=== PATIENT | female | born 1935 | race Caucasian/White ===

== ENCOUNTER 2018-01-10 11:02 | Inpatient (IN) | payer MEDICARE, BC ==
--- NOTE | 2018-01-10 13:16 | CR ---
Chest: Portable view of the chest was obtained. Comparison: Prior chest x-ray of 12/01/12. Elevated right hemidiaphragm is seen which is a stable finding. Heart size appears at the upper limits of normal. Tortuous thoracic aorta is seen. Atherosclerotic calcification is noted within the aortic knob. Lungs show minimal atelectasis within the right base. Lungs otherwise are clear. Mild scoliosis is noted within the spine. Impression: 1. Incidental findings. Nothing acute is seen. Diagnostic code #2
--- NOTE | 2018-01-10 13:21 | EDM.PDOC ---
ED HPI GENERAL MEDICAL PROBLEM - General Chief Complaint: Gastrointestinal Problem Stated Complaint: [facility] Time Seen by Provider: 01/10/18 11:30 Source of Information: Reports: Patient, Family (2 daughters) History Limitations: Reports: No Limitations - History of Present Illness INITIAL COMMENTS - FREE TEXT/NARRATIVE: The patient's daughters states that the patient has [place] not felt well for the past 2 weeks. They are nonspecific, but indicated that she has had a decreased oral intake of both solids and fluids. This past 01/07/2018, the patient was found to be shivering, and she had nausea, although no emesis. He states that she has been getting weaker. Ordinarily she is able to walk with a walker, however, today she was too weak to get up, and did not want to take her oral medications. She has not had a fever or diarrhea. No recent cough. No dyspnea. No palpitations. The patient happened to mention that her chest felt heavy today. No prior similar symptoms. The patient's PCP is Monalisa Duffy, who has not been notified of the patient's symptoms. - Related Data Allergies Allergy/AdvReac Type Severity Reaction Status Date / Time No Known Allergies Allergy Verified 01/10/18 11:05 Home Meds: Home Meds Acetaminophen [Tylenol] 325 mg PO QID 07/14/14 [History] Albuterol [Proventil HFA] 2 puff INH Q4H PRN 07/14/14 [History] Aspirin [Halfprin] 81 mg PO DAILY 07/14/14 [History] Hydrocodone/Acetaminophen [Hydrocodone-Acetaminophen 5-325] 1 each PO QID [History] Lisinopril 10 mg PO BID 07/14/14 [History] Multivitamin [Multi-Vitamin Daily] 1 each PO DAILY 07/14/14 [History] Sertraline [Zoloft] 75 mg PO DAILY 07/14/14 [History] Triamterene/Hydrochlorothiazid [Triamterene-HCTZ 37.5-25 MG] 0.5 tab PO DAILY [History] Docusate Sodium [Stool Softener] 50 mg PO BEDTIME 01/10/18 [History] L.acidoph,Paracasei, B.lactis [Probiotic] 1 tab PO DAILY 01/10/18 [History] Ondansetron 4 mg PO Q6H PRN 01/10/18 [History] Past Medical History Cardiovascular History: Reports: CAD, Hypertension Genitourinary History: Reports: Urinary Incontinence Musculoskeletal History: Reports: Osteoarthritis Psychiatric History: Reports: Anxiety, Depression Endocrine/Metabolic History: Reports: Diabetes, Type II - Past Surgical History HEENT Surgical History: Reports: Cataract Surgery Cardiovascular Surgical History: Reports: Coronary Artery Stent (x 1) Female Surgical History: Reports: Other (See Below) (Uterus suspension) Social & Family History - Family History Family Medical History: Unobtainable HEENT: Reports: Cataract Cardiac: Reports: [place] Other Cardiac Family History: father Respiratory: Reports: None GI: Reports: None : Reports: None OBGYN: Reports: None Musculoskeletal: Reports: Arthritis Neurological: Reports: None Psychiatric: Reports: None Endocrine/Metabolic: Reports: Diabetes, type II Other Endocrine/Metabolic Family History: daughter Hematologic: Reports: None Immunologic: Reports: None Dermatologic: Reports: None Oncologic: Reports: Breast Other Oncologic Family History: sister - Tobacco Use Smoking Status *Q: Never Smoker - Alcohol Use Alcohol Use History: No Days Per Week of Alcohol Use: 0 - Recreational Drug Use Recreational Drug Use: No - Living Situation & Occupation Living situation: Reports: , with Family (Daughter) Occupation: Retired ED ROS GENERAL - Review of Systems Review Of Systems: ROS reveals no pertinent complaints other than HPI. ED EXAM, GENERAL - Physical Exam Exam: See Below Exam Limited By: No Limitations General Appearance: Alert, WD/WN, No Apparent Distress Eye Exam: Bilateral Eye: Normal Inspection Ears: Normal External Exam, Hearing Grossly Normal Nose: Normal Inspection, No Blood Throat/Mouth: Normal Inspection, Normal Lips, Normal Voice, No Airway Compromise Head: Atraumatic, Normocephalic Neck: Normal Inspection, Full Range of Motion Respiratory/Chest: No Respiratory Distress, Lungs Clear, Normal Breath Sounds, No Accessory Muscle Use Cardiovascular: Normal Peripheral Pulses, Regular Rate, Rhythm, No Gallop, No JVD, No Murmur, No Rub Peripheral Pulses: 4+: Radial (L), Radial (R) GI/Abdominal: Normal Bowel Sounds, Soft, Non-Tender, No Organomegaly, No Distention, No Abnormal Bruit, No Mass (Female) Exam: Deferred Rectal (Female) Exam: Deferred Back Exam: Normal Inspection, Full Range of Motion, NT Extremities: Normal Inspection, Normal Range of Motion, No Pedal Edema, Normal Capillary Refill Neurological: Alert, Oriented, Normal Cognition, No Motor/Sensory Deficits Psychiatric: Normal Affect Skin Exam: Warm, Dry, Intact, Normal Color, No Rash EKG INTERPRETATION EKG Date: 01/10/18 Time: 12:31 Rhythm: NSR Rate (Beats/Min): 75 [place]: LAD-Left [place] Deviation P-Wave: Present QRS: Wide (Nonspecific intraventricular conduction delay) ST-T: Normal QT: Normal Comparison: No Change (07/14/2014) Course - Vital Signs Last Recorded V/S: Last Vital Signs Temp 36.6 C 01/10/18 11:05 Pulse 85 01/10/18 11:05 Resp 18 01/10/18 11:05 BP 143/79 H 01/10/18 11:05 Pulse Ox 97 01/10/18 11:05 - Orders/Labs/Meds Orders: Active Orders 24 hr Category Date Time Status Admission Status [Patient Status] [ADT] Routine ADT 01/10/18 15:32 Ordered Labs: Laboratory Tests 01/10/18 01/10/18 01/10/18 Range/Units 11:12 11:12 12:20 WBC 10.41 H (3.98-10.04) K/mm3 RBC 4.76 (3.98-5.22) M/mm3 Hgb 14.2 (11.2-15.7) gm/L Hct 43.9 (34.1-44.9) % MCV 92.2 (79.4-94.8) fl MCH 29.8 (25.6-32.2) pg MCHC 32.3 (32.2-35.5) g/dl RDW Std Deviation 42.0 (36.4-46.3) fL Plt Count 301 (182-369) K/mm3 MPV 11.3 (9.4-12.3) fl Neutrophils % (Manual) 63 H (40-60) % Band Neutrophils % 0 (0-10) % Lymphocytes % (Manual) 27 (20-40) % Atypical Lymphs % 0 % Monocytes % (Manual) 4 (2-10) % Eosinophils % (Manual) 6 H (0.7-5.8) % Basophils % (Manual) 0 L (0.1-1.2) Platelet Estimate Adequate RBC Morph Comment Normal Sodium 138 (136-145) mEq/L Potassium 3.9 (3.5-5.1) mEq/L Chloride 102 (98-107) mEq/L Carbon Dioxide 24 (21-32) mEq/L Anion Gap 15.9 H (5-15) BUN 24 H (7-18) mg/dL Creatinine 1.6 H (0.55-1.02) mg/dL Est Cr Clr Drug Dosing 19.47 mL/min Estimated GFR (MDRD) 31 (>60) mL/min BUN/Creatinine Ratio 15.0 (14-18) Glucose 207 H (83-115) mg/dL Calcium 9.7 (8.5-10.1) mg/dL Magnesium 1.4 L (1.8-2.4) mg/dl Total Bilirubin 0.5 (0.2-1.0) mg/dL AST 17 (15-37) U/L ALT 14 (14-59) U/L Alkaline Phosphatase 81 (46-116) U/L Troponin I < 0.017 (0.00-0.056) ng/mL Total Protein 6.8 (6.4-8.2) g/dl Albumin 3.3 L (3.4-5.0) g/dl Globulin 3.5 gm/dL Albumin/Globulin Ratio 0.9 L (1-2) TSH 3rd Generation 0.721 (0.358-3.74) uIU/mL Urine Color Yellow (Yellow) Urine Appearance Clear (Clear) Urine pH 5.5 (5.0-8.0) Ur Specific [place] 1.020 (1.005-1.030) Urine Protein Negative (Negative) Urine Glucose (UA) Negative (Negative) Urine Ketones Negative (Negative) Urine Occult Blood Negative (Negative) Urine Nitrite Negative (Negative) Urine Bilirubin Negative (Negative) Urine Urobilinogen 0.2 (0.2-1.0) Ur Leukocyte Esterase Negative (Negative) Urine RBC 0-5 (0-5) /hpf Urine WBC 0-5 (0-5) /hpf Ur Epithelial Cells 0-5 (0-5) /hpf Amorphous Sediment Few H (NOT SEEN) /hpf Urine Bacteria Not seen (FEW) /hpf Hyaline Casts 0-5 (0-5) /lpf Urine Mucus Moderate H (FEW) /hpf Meds: Medications Discontinued Medications Generic Name Dose Route Start Last Admin Trade Name Kassandra PRN Reason Stop Dose Admin Magnesium Sulfate 2 gm/ Premix 50 mls @ 50 mls/hr 01/10/18 13:29 01/10/18 13: 42 IV 01/10/18 14:28 50 mls/hr ONETIME ONE Administration Sodium Chloride 1,000 mls @ 500 mls/hr 01/10/18 13:29 01/10/18 13:42 Normal Saline IV 01/10/18 15:28 500 mls/hr ONETIME ONE Administration - Re-Assessments/Exams Free Text/Narrative Re-Assessment/Exam: 01/10/18 12:58 Portable chest radiograph reviewed. Cardiac silhouette is within normal limits. No pulmonary vascular congestion. No pleural effusions. No focal infiltrate. No pneumothorax. Elevated right hemidiaphragm. Formal read per the Radiologist pending. 01/10/18 13:30 The patient's BUN/Cr has returned elevated at 24/1.6. Her creatinine was 1.1 on 09/05/2017, and the previous highest creatinine on record is 1.3. I have ordered 1 L of NS to be given over 2 hours. The patient's magnesium was slightly low at 1.4. I have ordered a 2 g Mg-rider. The patient's blood glucose is slightly elevated at 207. She does not have a history of diabetes. Because she is going to receive a femoral of IV fluid, I have not ordered insulin, but this will need to be followed. I am going to recommend placement into observation. 01/10/18 13:44 Test results and my recommendation for placement into observation discussed with the patient and her 2 daughters. While the daughters told me earlier that the patient does not have a history of diabetes, when I mentioned that her blood sugar is elevated, they stated that she used to have diabetes, and used to be on metformin, but that it was discontinued when the patient had an adverse reaction to it. They are agreeable to having the patient placed into observation.. Case then discussed with Dr. Hunter at 13:40. She accepts the patient for placement into observation on telemetry. Departure - Departure Time of Disposition: 13:45 Disposition: Refer to Observation Condition: Fair Clinical Impression: [id number] kidney injury, Hyperglycemia due to type 2 diabetes mellitus, Hypomagnesemia, Constipation - Discharge Information Referrals: Monalisa Duffy, [facility] [Primary Care Provider] - - My Orders Last 24 Hours: My Active Orders 01/10/18 15:32 Admission Status [Patient Status] [ADT] Routine - Assessment/Plan Last 24 Hours: My Active Orders 01/10/18 15:32 Admission Status [Patient Status] [ADT] Routine
[2018-01-10] MEDS ORDERED: Magnesium Sulfate/Water 2 GM in Premix Bag 1 BAG IV ONE (13:29)
[2018-01-10] MEDS ORDERED: Sodium Chloride 0.9% 1,000 ML IV ONE (13:29)
--- NOTE | 2018-01-10 16:06 | PCM.HP ---
H&P History of Present Illness - General Date of Service: 01/10/18 Admit Problem/Dx: Admission Diagnosis/Problem Admission Diagnosis/Problem Hypomagnesemia Source of Information: Family, Provider History Limitations: Reports: No Limitations - History of Present Illness Initial Comments - Free Text/Narative: 82 year old female who has not felt well over two weeks presents with generalized weakness. This is associated with nausea without vomiting. She denies fever or chills. Overall she appears to have had constitutional symptoms which have persisted. Onset of Symptoms: Reports: Gradual Symptom Onset Date: 12/27/17 Duration of Symptoms: Reports: Week(s):, Getting Worse Location: Reports: Generalized Severity: Moderate Improves with: Reports: Medication Worsens with: Reports: None Associated Symptoms: Reports: Loss of Appetite, Malaise, Nausea/Vomiting, Shortness of Breath, Weakness Abdominal Pain Score (Numeric/FACES): 6 - Related Data Allergies/Adverse Reactions: Allergies Allergy/AdvReac Type Severity Reaction Status Date / Time No Known Allergies Allergy Verified 01/10/18 16:18 Home Medications: Home Meds Acetaminophen [Tylenol] 325 mg PO QID 07/14/14 [History] Albuterol [Proventil HFA] 2 puff INH Q4H PRN 07/14/14 [History] Aspirin [Halfprin] 81 mg PO DAILY 07/14/14 [History] Hydrocodone/Acetaminophen [Hydrocodone-Acetaminophen 5-325] 1 each PO QID [History] Lisinopril 10 mg PO BID 07/14/14 [History] Multivitamin [Multi-Vitamin Daily] 1 each PO DAILY 07/14/14 [History] Sertraline [Zoloft] 75 mg PO DAILY 07/14/14 [History] Triamterene/Hydrochlorothiazid [Triamterene-HCTZ 37.5-25 MG] 0.5 tab PO DAILY [History] Docusate Sodium [Stool Softener] 50 mg PO BEDTIME 01/10/18 [History] L.acidoph,Paracasei, B.lactis [Probiotic] 1 tab PO DAILY 01/10/18 [History] Ondansetron 4 mg PO Q6H PRN 01/10/18 [History] Past Medical History HEENT History: Reports: Cataract Cardiovascular History: Reports: CAD, Hypertension Other Cardiovascular History: stent 10 years ago Respiratory History: Reports: Asthma Gastrointestinal History: Reports: Chronic Constipation Other Gastrointestinal History: severe colitis Genitourinary History: Reports: Urinary Incontinence Musculoskeletal History: Reports: Osteoarthritis Psychiatric History: Reports: Anxiety, Depression Endocrine/Metabolic History: Reports: Diabetes, Type II Dermatologic History: Reports: Other (See Below) Other Dermatologic History: itchy skin - Past Surgical History HEENT Surgical History: Reports: Cataract Surgery Cardiovascular Surgical History: Reports: Coronary Artery Stent (x 1) Female Surgical History: Reports: Other (See Below) (Uterus suspension) Social & Family History - Family History Family Medical History: Unobtainable HEENT: Reports: Cataract Cardiac: Reports: [place] Other Cardiac Family History: father Respiratory: Reports: None GI: Reports: None : Reports: None OBGYN: Reports: None Musculoskeletal: Reports: Arthritis Neurological: Reports: None Psychiatric: Reports: None Endocrine/Metabolic: Reports: Diabetes, type II Other Endocrine/Metabolic Family History: daughter Hematologic: Reports: None Immunologic: Reports: None Dermatologic: Reports: None Oncologic: Reports: Breast Other Oncologic Family History: sister - Tobacco Use Smoking Status *Q: Never Smoker - Alcohol Use Days Per Week of Alcohol Use: 0 - Recreational Drug Use Recreational Drug Use: No - Living Situation & Occupation Living situation: Reports: , with Family (Daughter) Occupation: Retired H&P Review of Systems - Review of Systems: Review Of Systems: See Below General: Reports: Malaise, Weakness, Fatigue HEENT: Reports: No Symptoms Pulmonary: Reports: Shortness of Breath Cardiovascular: Reports: No Symptoms Gastrointestinal: Reports: Decreased Appetite Genitourinary: Reports: No Symptoms Musculoskeletal: Reports: No Symptoms Skin: Reports: No Symptoms Psychiatric: Reports: No Symptoms Neurological: Reports: No Symptoms Hematologic/Lymphatic: Reports: No Symptoms Immunologic: Reports: No Symptoms Exam - Exam Exam: See Below - Vital Signs Vital Signs: Last Vital Signs Temp 36.6 C 01/10/18 11:05 Pulse 85 01/10/18 11:05 Resp 18 01/10/18 11:05 BP 143/79 H 01/10/18 11:05 Pulse Ox 97 01/10/18 11:05 Weight: 68.039 kg - Exam Quality Assessment: DVT Prophylaxis General: Alert, Oriented, Cooperative HEENT: Conjunctiva Clear, Nares Patent, Normal Nasal Septum, Pupils Equal, Pupils Reactive, PERRLA Neck: Supple, Trachea Midline Lungs: Normal Respiratory Effort, Decreased Breath Sounds Cardiovascular: Regular Rate, Regular Rhythm GI/Abdominal Exam: Normal Bowel Sounds, Soft, Non-Tender, No Organomegaly, No Distention (Female) Exam: Deferred Rectal (Female) Exam: Deferred Back Exam: Normal Inspection Extremities: Normal Inspection Skin: Warm, Dry Neurological: Cranial Nerves Intact, Normal Speech Neuro Extensive - Mental Status: Alert, Oriented x3, Normal Mood/Affect, Normal Cognition, Memory Intact Neuro Extensive - Motor, Sensory, Reflexes: CN II-XII Intact Psychiatric: Alert, Normal Affect, Normal Mood - Patient Data Result Diagrams: 01/10/18 11:12 01/10/18 11:12 *Q Meaningful Use (ADM) - VTE *Q VTE Criteria *Q: - Stroke *Q Stroke Criteria *Q: - AMI *Q AMI Criteria *Q: - Problem List (1) CAD (coronary artery disease) SNOMED Code(s): 05423306 ICD Code: I25.10 - ATHSCL HEART DISEASE OF [place] CORONARY ARTERY W/O ANG PCTRS Status: Acute Current Visit: Yes (2) Hypertension SNOMED Code(s): 37931936 ICD Code: I10 - ESSENTIAL (PRIMARY) HYPERTENSION Status: Acute Current Visit: Yes (3) Depression SNOMED Code(s): 31846734 ICD Code: F32.9 - MAJOR DEPRESSIVE DISORDER, SINGLE EPISODE, UNSPECIFIED Status: Acute Current Visit: Yes (4) Diabetes SNOMED Code(s): 43101700 ICD Code: E11.9 - TYPE 2 DIABETES MELLITUS WITHOUT COMPLICATIONS Status: Acute Current Visit: Yes (5) Hypomagnesemia SNOMED Code(s): 979618788 ICD Code: E83.42 - HYPOMAGNESEMIA Status: Acute Current Visit: Yes Problem List Initiated/Reviewed/Updated: Yes Assessment/Plan Comment:: Impression: Chest pain, atypical with history of DM/CAD (PCI) Constitutional symptoms, can not exclude infection Dehydration Chronic HTN CAD HLD Diabetes mellitus type II Plan: IVF Antiemetic Infectious work up Ischemic evaluation Droplet Isolation Home meds Daily Labs Consult PT/OT/CM (re: ) DVT/GI prophylaxis
[2018-01-10] MEDS ORDERED: Acetaminophen 325 MG Tab PO PRN (16:50)
[2018-01-10] MEDS ORDERED: Ondansetron 4 MG Tab.DIS PO PRN (17:25)
[2018-01-10] MEDS ORDERED: 50% Dextrose in Water 50 ML Syringe IVPUSH PRN (17:26)
[2018-01-10] MEDS: Sodium Chloride 0.45% 1,000 ML IV SCH (17:48)
[2018-01-10] MEDS ORDERED: Polyethylene Glycol 3350 Powder 17 GM Packet PO PRN (17:59)
[2018-01-10] MEDS ORDERED: Docusate Sodium 100 MG Cap PO SCH (21:00)
[2018-01-10] MEDS: Insulin Aspart 100 Units/ML 3 ML Pen SUBCUT SCH (21:10)
[2018-01-10] MEDS: Ondansetron 4 MG/2 ML SDV IVPUSH PRN (21:18)
[2018-01-11] MEDS: Sodium Chloride 0.45% 1,000 ML IV SCH ×2 (03:11→13:23)
[2018-01-11] MEDS: Insulin Aspart 100 Units/ML 3 ML Pen SUBCUT SCH ×4 (07:07→22:04)
[2018-01-11] MEDS ORDERED: BIFIDOBACTERIUM PO SCH (09:00)
[2018-01-11] MEDS ORDERED: LACTOBACILLUS ACIDOPHILUS PO SCH (09:00)
[2018-01-11] MEDS: Docusate Sodium 100 MG Cap PO SCH (10:29)
[2018-01-11] MEDS: Aspirin 81 MG Tab.EC PO SCH (10:29)
[2018-01-11] MEDS: Acetaminophen/HYDROcodone 325-5 MG Tab PO SCH ×6 (10:33→22:00)
[2018-01-11] MEDS: Sertraline 50 MG Tab PO SCH (10:33)
[2018-01-11] MEDS: Potassium Chloride 20 MEQ Tab.ER PO SCH ×2 (11:15→20:36)
[2018-01-11] MEDS: hydrALAZINE 20 MG/ML SDV IVPUSH PRN ×2 (11:41→20:39)
[2018-01-11] MEDS ORDERED: Sodium Chloride 0.45% 1,000 ML IV SCH (14:15)
[2018-01-11] MEDS: Magnesium Sulfate/Water 2 GM in Premix Bag 1 BAG IV SCH ×2 (14:26→16:31)
--- NOTE | 2018-01-11 14:56 | PCM.PN ---
- General Info Date of Service: 01/11/18 Admission Dx/Problem (Free Text): Admission Diagnosis/Problem Admission Diagnosis/Problem Hypomagnesemia Subjective Update: In to see Sunshine ruiz. She is lying in bed. She's been upgraded to full inpatient status. Mycoplasma pneumonia came back positive. We'll start doxycycline for this. She has been having very poor oral intake per nursing. I discussed this with her and she states that she is just not hungry. Will consult dietary as she may benefit from supplementation. Creatinine and EGFR are improving. She is receiving fluids currently. Functional Status: Reports: Pain Controlled, Tolerating Diet, Ambulating, Urinating. Denies: New Symptoms - Review of Systems General: Reports: Weakness, Fatigue, Malaise. Denies: Fever HEENT: Reports: No Symptoms Pulmonary: Reports: Shortness of Breath, Cough. Denies: Pleuritic Chest Pain, Sputum, Wheezing Cardiovascular: Reports: Dyspnea on Exertion. Denies: Chest Pain, Palpitations Gastrointestinal: Reports: Decreased Appetite. Denies: Abdominal Pain, Constipation, Diarrhea, Nausea, Vomiting Genitourinary: Reports: No Symptoms Musculoskeletal: Reports: No Symptoms Skin: Reports: No Symptoms Neurological: Reports: No Symptoms Psychiatric: Reports: No Symptoms - Patient Data Vitals - Most Recent: Last Vital Signs Temp 97.5 F 01/11/18 11:22 Pulse 79 01/11/18 10:54 Resp 17 01/11/18 10:54 BP 160/69 H 01/11/18 11:40 Pulse Ox 93 L 01/11/18 10:54 Weight - Most Recent: 149 lb 12.8 oz I&O - Last 24 Hours: Intake & Output 01/10/18 01/11/18 01/11/18 22:59 06:59 14:59 Intake Total 0 1946 180 Balance 0 1946 180 Lab Results Last 24 Hours: Laboratory Results - last 24 hr 01/10/18 01/11/18 01/11/18 Range/Units 21:03 05:30 05:30 WBC 9.13 (3.98-10.04) K/mm3 RBC 4.19 (3.98-5.22) M/mm3 Hgb 12.5 (11.2-15.7) gm/L Hct 38.4 (34.1-44.9) % MCV 91.6 (79.4-94.8) fl MCH 29.8 (25.6-32.2) pg MCHC 32.6 (32.2-35.5) g/dl RDW Std Deviation 39.9 (36.4-46.3) fL Plt Count 263 (182-369) K/mm3 MPV 9.9 (9.4-12.3) fl Neut % (Auto) 69.5 (34.0-71.1) % Lymph % (Auto) 17.7 L (19.3-51.7) % [place] % (Auto) 8.9 (4.7-12.5) % Eos % (Auto) 3.1 (0.7-5.8) Baso % (Auto) 0.7 (0.1-1.2) % Neut # (Auto) 6.35 H (1.56-6.13) K/mm3 Lymph # (Auto) 1.62 (1.18-3.74) K/mm3 [place] # (Auto) 0.81 H (0.24-0.36) K/mm3 Eos # (Auto) 0.28 (0.04-0.36) K/mm3 Baso # (Auto) 0.06 (0.01-0.08) K/mm3 Sodium 138 (136-145) mEq/L Potassium 3.2 L (3.5-5.1) mEq/L Chloride 104 (98-107) mEq/L Carbon Dioxide 24 (21-32) mEq/L Anion Gap 13.2 (5-15) BUN 13 (7-18) mg/dL Creatinine 1.1 H (0.55-1.02) mg/dL Est Cr Clr Drug Dosing 29.75 mL/min Estimated GFR (MDRD) 48 (>60) mL/min BUN/Creatinine Ratio 11.8 L (14-18) Glucose 159 H (83-115) mg/dL POC Glucose 168 H (83-110) mg/dL Lactic Acid (0.4-2.0) mmol/L Calcium 9.0 (8.5-10.1) mg/dL Magnesium 1.5 L (1.8-2.4) mg/dl Troponin I 0.019 (0.00-0.056) ng/mL C-Reactive Protein 4.7 H* (<1.0) mg/dL Mycoplasma pneumon IgM Positive H (NEGATIVE) 01/11/18 01/11/18 01/11/18 Range/Units 05:30 06:38 11:00 WBC (3.98-10.04) K/mm3 RBC (3.98-5.22) M/mm3 Hgb (11.2-15.7) gm/L Hct (34.1-44.9) % MCV (79.4-94.8) fl MCH (25.6-32.2) pg MCHC (32.2-35.5) g/dl RDW Std Deviation (36.4-46.3) fL Plt Count (182-369) K/mm3 MPV (9.4-12.3) fl Neut % (Auto) (34.0-71.1) % Lymph % (Auto) (19.3-51.7) % [place] % (Auto) (4.7-12.5) % Eos % (Auto) (0.7-5.8) Baso % (Auto) (0.1-1.2) % Neut # (Auto) (1.56-6.13) K/mm3 Lymph # (Auto) (1.18-3.74) K/mm3 [place] # (Auto) (0.24-0.36) K/mm3 Eos # (Auto) (0.04-0.36) K/mm3 Baso # (Auto) (0.01-0.08) K/mm3 Sodium (136-145) mEq/L Potassium (3.5-5.1) mEq/L Chloride (98-107) mEq/L Carbon Dioxide (21-32) mEq/L Anion Gap (5-15) BUN (7-18) mg/dL Creatinine (0.55-1.02) mg/dL Est Cr Clr Drug Dosing mL/min Estimated GFR (MDRD) (>60) mL/min BUN/Creatinine Ratio (14-18) Glucose (83-115) mg/dL POC Glucose 150 H 161 H (83-110) mg/dL Lactic Acid 0.6 (0.4-2.0) mmol/L Calcium (8.5-10.1) mg/dL Magnesium (1.8-2.4) mg/dl Troponin I (0.00-0.056) ng/mL C-Reactive Protein (<1.0) mg/dL Mycoplasma pneumon IgM (NEGATIVE) Ob Results Last 24 Hours: Microbiology 01/10/18 17:46 Influenza Type A Antigen Screen - Final Nasal, Unspecified NEGATIVE INFLUENZA A VIRUS AG Influenza Type B Antigen Screen - Final NEGATIVE INFLUENZA B VIRUS AG Med Orders - Current: Current Medications Acetaminophen (Tylenol) 650 mg PO Q6H PRN PRN Reason: Pain/Fever Hydrocodone Bitart/Acetaminophen ([place] 325-5 Mg) 1 tab PO 0800,1300,1800,2200 [facility] Last Admin: 01/11/18 13:21 Dose: 1 tab Hydrocodone Bitart/Acetaminophen ([place] 325-10 Mg) 1 tab PO Q4H PRN PRN Reason: Pain Aspirin (Halfprin) 81 mg PO DAILY [facility] Last Admin: 01/11/18 10:29 Dose: 81 mg Dextrose/Water (Dextrose 50% In Water) 50 ml IVPUSH ASDIRECTED PRN PRN Reason: Hypoglycemia Docusate Sodium (Colace) 100 mg PO DAILY [facility] Last Admin: 01/11/18 10:29 Dose: Not Given Hydralazine HCl (Apresoline) 20 mg IVPUSH Q6H PRN PRN Reason: Hypertension Last Admin: 01/11/18 11:41 Dose: 20 mg Magnesium Sulfate 2 gm/ Premix 50 mls @ 25 mls/hr IV Q2H [facility] Stop: 01/11/18 17:59 Last Admin: 01/11/18 14:26 Dose: 25 mls/hr Sodium Chloride (Sodium Chloride 0.45%) 1,000 mls @ 50 mls/hr IV ASDIRECTED [facility] Insulin Aspart (Novolog) 0 unit SUBCUT QIDACANDBED [facility] PRN Reason: Protocol Last Admin: 01/11/18 11:15 Dose: 1 unit Ondansetron HCl (Zofran) 4 mg IVPUSH Q8H PRN PRN Reason: Nausea/Vomiting Last Admin: 01/10/18 21:18 Dose: 4 mg Ondansetron HCl (Zofran Odt) 4 mg PO Q6H PRN PRN Reason: Nausea/Vomiting Lactobacillus Acidophilus La-5, Bifdobacterium 250 each PO DAILY [facility] Last Admin: 01/11/18 10:33 Dose: 250 each Polyethylene Glycol (Miralax) 17 gm PO DAILY PRN PRN Reason: Constipation Potassium Chloride (Klor-Con M20) 40 meq PO BID [facility] Stop: 01/12/18 09:01 Last Admin: 01/11/18 11:15 Dose: 40 meq Sertraline HCl (Zoloft) 75 mg PO DAILY [facility] Last Admin: 01/11/18 10:33 Dose: 75 mg Discontinued Medications Docusate Sodium (Colace) 100 mg PO BEDTIME [facility] Magnesium Sulfate 2 gm/ Premix 50 mls @ 50 mls/hr IV ONETIME ONE Stop: 01/10/18 14:28 Last Admin: 01/10/18 13:42 Dose: 50 mls/hr Sodium Chloride (Normal Saline) 1,000 mls @ 500 mls/hr IV ONETIME ONE Stop: 01/10/18 15:28 Last Admin: 01/10/18 13:42 Dose: 500 mls/hr Sodium Chloride (Sodium Chloride 0.45%) 1,000 mls @ 150 mls/hr IV ASDIRECTED [facility] Last Admin: 01/11/18 13:23 Dose: 150 mls/hr - Exam Quality Assessment: DVT Prophylaxis General: Alert, Oriented, Cooperative, No Acute Distress HEENT: Pupils Equal, Pupils Reactive, EOMI, Mucous Membr. Moist/[place] Neck: Supple, Trachea Midline, No JVD Lungs: Clear to Auscultation, Normal Respiratory Effort, Decreased Breath Sounds Cardiovascular: Regular Rate, Regular Rhythm GI/Abdominal Exam: Normal Bowel Sounds, Soft, Non-Tender, No Organomegaly, No Distention, No Abnormal Bruit, No Mass, Pelvis Stable (Female) Exam: Deferred Back Exam: Normal Inspection, Full Range of Motion Extremities: Normal Inspection, Normal Range of Motion, Non-Tender, No Pedal Edema, Normal Capillary Refill Peripheral Pulses: 2+: Radial (L), Radial (R), Posterior Tibial (L), Posterior Tibial (R), Dorsalis Pedis (L), Dorsalis Pedis (R) Skin: Warm, Dry, Intact Neurological: No New Focal Deficit Psy/Mental Status: Alert, Normal Affect, Normal Mood - Problem List & Annotations (1) Hypokalemia SNOMED Code(s): 01055925 Code(s): E87.6 - HYPOKALEMIA Status: Acute Priority: High Current Visit : Yes (2) Mycoplasma pneumonia SNOMED Code(s): 51026949 Code(s): J15.7 - PNEUMONIA DUE TO MYCOPLASMA PNEUMONIAE Status: Acute Priority: High Current Visit: Yes Qualifiers: Laterality: unspecified laterality Lung location: unspecified part of lung Qualified Code(s): J15.7 - Pneumonia due to Mycoplasma pneumoniae (3) CAD (coronary artery disease) SNOMED Code(s): 97951979 Code(s): I25.10 - ATHSCL HEART DISEASE OF [place] CORONARY ARTERY W/O ANG PCTRS Status: Chronic Priority: Low Current Visit: No Qualifiers: Coronary Disease-Associated Artery/Lesion type: unspecified vessel or lesion type [place] vs. 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: unspecified long-term insulin use status Qualified Code(s): E11.9 - Type 2 diabetes mellitus without complications (5) Hypertension SNOMED Code(s): 14100157 Code(s): I10 - ESSENTIAL (PRIMARY) HYPERTENSION Status: Chronic Priority : Medium Current Visit: No Qualifiers: Hypertension type: unspecified Qualified Code(s): I10 - Essential (primary ) hypertension (6) Hypomagnesemia SNOMED Code(s): 187691105 Code(s): E83.42 - HYPOMAGNESEMIA Status: Acute Priority: High Current Visit: Yes - Problem List Review Problem List Initiated/Reviewed/Updated: Yes - My Orders Last 24 Hours: My Active Orders 01/10/18 17:59 Polyethylene Glycol 3350 [MiraLAX] 17 gm PO DAILY PRN 01/10/18 20:19 Acetaminophen/HYDROcodone [[place] 325-10 MG] 1 tab PO Q4H PRN - Plan Plan:: Impression: Chest pain, atypical with history of DM/CAD (PCI), likely 2/2 infection Dehydration hypomagnesemia Hypokalemia Positive mycoplasma pneumonia Diarrhea earlier today Chronic HTN CAD HLD Diabetes mellitus type II Plan: IVF Antiemetic Infectious work up - positive for mycoplasma pneuomonia, negative flu Doxycycline Ischemic evaluation Stool studies (re: diarrhea) Droplet/contact Isolation Supplement electrolytes Home meds Daily Labs Consult PT/OT/CM (re: HH) DVT/GI prophylaxis Code status: Full code; PCP: CRAIG Isaacs here at [facility]
[2018-01-11] MEDS: Ondansetron 4 MG/2 ML SDV IVPUSH PRN (17:20)
[2018-01-11] MEDS: Doxycycline 100 MG in Sodium Chloride 0.9% 100 ML IV SCH (21:23)
[2018-01-11] MEDS: Acetaminophen/HYDROcodone 325-10 MG Tab PO PRN (22:00)
[2018-01-12] MEDS: Insulin Aspart 100 Units/ML 3 ML Pen SUBCUT SCH ×4 (07:05→22:18)
[2018-01-12] MEDS: Saccharomyces Boulardii (Probiotic) 250 MG Cap PO SCH (08:32)
[2018-01-12] MEDS: Acetaminophen/HYDROcodone 325-5 MG Tab PO SCH ×5 (08:34→22:11)
[2018-01-12] MEDS: Sertraline 50 MG Tab PO SCH (08:34)
[2018-01-12] MEDS: Potassium Chloride 20 MEQ Tab.ER PO SCH (08:35)
[2018-01-12] MEDS: Docusate Sodium 100 MG Cap PO SCH (08:36)
[2018-01-12] MEDS: Doxycycline 100 MG in Sodium Chloride 0.9% 100 ML IV SCH (08:36)
[2018-01-12] MEDS: Aspirin 81 MG Tab.EC PO SCH (08:36)
[2018-01-12] MEDS: Azithromycin 250 MG Tab PO SCH (12:44)
--- NOTE | 2018-01-12 15:11 | PCM.PN ---
- General Info Date of Service: 01/12/18 Admission Dx/Problem (Free Text): Admission Diagnosis/Problem Admission Diagnosis/Problem Hypomagnesemia Subjective Update: In to see Sunshine. She is doing much better today. She is sitting on the edge of her bed. Mucous membranes are nice and moist now. She states she feels like she's not nearly as dry. Fluids have been stopped as she was getting slightly hypertensive. Labs look good. We switched her from IV Doxy to by mouth azithromycin. She had some diarrhea yesterday and this may have been a possible cause. No diarrhea today. Will stop C. difficile study ordered. She has no concerns at this time. Reports shortness of breath has improved. Still denies appetite although it is slowly improving. She reports her chest pain has resolved. Functional Status: Reports: Pain Controlled, Tolerating Diet, Ambulating, Urinating, Incentive Spirometry. Denies: New Symptoms - Review of Systems General: Reports: Weakness (improved ). Denies: Fever, Fatigue, Malaise, Appetite HEENT: Reports: No Symptoms Pulmonary: Reports: Shortness of Breath (improved ). Denies: Cough, Sputum Cardiovascular: Reports: Dyspnea on Exertion (Improving). Denies: Chest Pain, Palpitations Gastrointestinal: Reports: Decreased Appetite. Denies: Abdominal Pain, Constipation, Diarrhea, Nausea, Vomiting Genitourinary: Reports: No Symptoms Musculoskeletal: Reports: No Symptoms Skin: Reports: No Symptoms Neurological: Reports: No Symptoms Psychiatric: Reports: No Symptoms - Patient Data Vitals - Most Recent: Last Vital Signs Temp 98.4 F 01/12/18 12:23 Pulse 75 01/12/18 12:23 Resp 16 01/12/18 12:23 BP 161/64 H 01/12/18 12:23 Pulse Ox 91 L 01/12/18 12:23 Weight - Most Recent: 149 lb 12.8 oz I&O - Last 24 Hours: Intake & Output 01/12/18 01/12/18 01/12/18 06:59 14:59 22:59 Intake Total 1250 120 Output Total 950 Balance 300 120 Lab Results Last 24 Hours: Laboratory Results - last 24 hr 01/11/18 01/11/18 01/12/18 Range/Units 16:15 21:11 06:07 WBC 9.85 (3.98-10.04) K/mm3 RBC 4.02 (3.98-5.22) M/mm3 Hgb 12.4 (11.2-15.7) gm/L Hct 37.1 (34.1-44.9) % MCV 92.3 (79.4-94.8) fl MCH 30.8 (25.6-32.2) pg MCHC 33.4 (32.2-35.5) g/dl RDW Std Deviation 41.4 (36.4-46.3) fL Plt Count 290 (182-369) K/mm3 MPV 10.1 (9.4-12.3) fl Neut % (Auto) 64.8 (34.0-71.1) % Lymph % (Auto) 21.9 (19.3-51.7) % [place] % (Auto) 9.5 (4.7-12.5) % Eos % (Auto) 2.6 (0.7-5.8) Baso % (Auto) 0.9 (0.1-1.2) % Neut # (Auto) 6.37 H (1.56-6.13) K/mm3 Lymph # (Auto) 2.16 (1.18-3.74) K/mm3 [place] # (Auto) 0.94 H (0.24-0.36) K/mm3 Eos # (Auto) 0.26 (0.04-0.36) K/mm3 Baso # (Auto) 0.09 H (0.01-0.08) K/mm3 Sodium (136-145) mEq/L Potassium (3.5-5.1) mEq/L Chloride (98-107) mEq/L Carbon Dioxide (21-32) mEq/L Anion Gap (5-15) BUN (7-18) mg/dL Creatinine (0.55-1.02) mg/dL Est Cr Clr Drug Dosing mL/min Estimated GFR (MDRD) (>60) mL/min BUN/Creatinine Ratio (14-18) Glucose (83-115) mg/dL POC Glucose 165 H 153 H (83-110) mg/dL Hemoglobin A1c (4.50-6.20) % Calcium (8.5-10.1) mg/dL Magnesium (1.8-2.4) mg/dl Troponin I (0.00-0.056) ng/mL C-Reactive Protein (<1.0) mg/dL 01/12/18 01/12/18 01/12/18 Range/Units 06:07 06:07 06:07 WBC (3.98-10.04) K/mm3 RBC (3.98-5.22) M/mm3 Hgb (11.2-15.7) gm/L Hct (34.1-44.9) % MCV (79.4-94.8) fl MCH (25.6-32.2) pg MCHC (32.2-35.5) g/dl RDW Std Deviation (36.4-46.3) fL Plt Count (182-369) K/mm3 MPV (9.4-12.3) fl Neut % (Auto) (34.0-71.1) % Lymph % (Auto) (19.3-51.7) % [place] % (Auto) (4.7-12.5) % Eos % (Auto) (0.7-5.8) Baso % (Auto) (0.1-1.2) % Neut # (Auto) (1.56-6.13) K/mm3 Lymph # (Auto) (1.18-3.74) K/mm3 [place] # (Auto) (0.24-0.36) K/mm3 Eos # (Auto) (0.04-0.36) K/mm3 Baso # (Auto) (0.01-0.08) K/mm3 Sodium 138 (136-145) mEq/L Potassium 4.0 (3.5-5.1) mEq/L Chloride 106 (98-107) mEq/L Carbon Dioxide 23 (21-32) mEq/L Anion Gap 13.0 (5-15) BUN 8 (7-18) mg/dL Creatinine 1.0 (0.55-1.02) mg/dL Est Cr Clr Drug Dosing 32.73 mL/min Estimated GFR (MDRD) 53 (>60) mL/min BUN/Creatinine Ratio 8.0 L (14-18) Glucose 130 H (83-115) mg/dL POC Glucose (83-110) mg/dL Hemoglobin A1c 6.30 H (4.50-6.20) % Calcium 8.8 (8.5-10.1) mg/dL Magnesium 2.2 (1.8-2.4) mg/dl Troponin I 0.040 (0.00-0.056) ng/mL C-Reactive Protein 2.8 H* (<1.0) mg/dL 01/12/18 01/12/18 Range/Units 06:07 11:08 WBC (3.98-10.04) K/mm3 RBC (3.98-5.22) M/mm3 Hgb (11.2-15.7) gm/L Hct (34.1-44.9) % MCV (79.4-94.8) fl MCH (25.6-32.2) pg MCHC (32.2-35.5) g/dl RDW Std Deviation (36.4-46.3) fL Plt Count (182-369) K/mm3 MPV (9.4-12.3) fl Neut % (Auto) (34.0-71.1) % Lymph % (Auto) (19.3-51.7) % [place] % (Auto) (4.7-12.5) % Eos % (Auto) (0.7-5.8) Baso % (Auto) (0.1-1.2) % Neut # (Auto) (1.56-6.13) K/mm3 Lymph # (Auto) (1.18-3.74) K/mm3 [place] # (Auto) (0.24-0.36) K/mm3 Eos # (Auto) (0.04-0.36) K/mm3 Baso # (Auto) (0.01-0.08) K/mm3 Sodium (136-145) mEq/L Potassium (3.5-5.1) mEq/L Chloride (98-107) mEq/L Carbon Dioxide (21-32) mEq/L Anion Gap (5-15) BUN (7-18) mg/dL Creatinine (0.55-1.02) mg/dL Est Cr Clr Drug Dosing mL/min Estimated GFR (MDRD) (>60) mL/min BUN/Creatinine Ratio (14-18) Glucose (83-115) mg/dL POC Glucose 137 H 187 H (83-110) mg/dL Hemoglobin A1c (4.50-6.20) % Calcium (8.5-10.1) mg/dL Magnesium (1.8-2.4) mg/dl Troponin I (0.00-0.056) ng/mL C-Reactive Protein (<1.0) mg/dL Med Orders - Current: Current Medications Acetaminophen (Tylenol) 650 mg PO Q6H PRN PRN Reason: Pain/Fever Hydrocodone Bitart/Acetaminophen ([place] 325-10 Mg) 1 tab PO Q4H PRN PRN Reason: Pain Last Admin: 01/11/18 22:00 Dose: 1 tab Hydrocodone Bitart/Acetaminophen ([place] 325-5 Mg) 1 tab PO BID@0800,1300 [facility] Last Admin: 01/12/18 12:44 Dose: 1 tab Hydrocodone Bitart/Acetaminophen ([place] 325-5 Mg) 1 tab PO BID@1800,2200 [facility] Aspirin (Halfprin) 81 mg PO DAILY [facility] Last Admin: 01/12/18 08:36 Dose: 81 mg Azithromycin (Zithromax) 250 mg PO Q24H [facility] Last Admin: 01/12/18 12:44 Dose: 250 mg Dextrose/Water (Dextrose 50% In Water) 50 ml IVPUSH ASDIRECTED PRN PRN Reason: Hypoglycemia Docusate Sodium (Colace) 100 mg PO DAILY [facility] Last Admin: 01/12/18 08:36 Dose: 100 mg Hydralazine HCl (Apresoline) 20 mg IVPUSH Q6H PRN PRN Reason: Hypertension Last Admin: 01/11/18 20:39 Dose: 20 mg Sodium Chloride (Sodium Chloride 0.45%) 1,000 mls @ 50 mls/hr IV ASDIRECTED [facility] Last Admin: 01/12/18 07:39 Dose: 50 mls/hr Insulin Aspart (Novolog) 0 unit SUBCUT QIDACANDBED [facility] PRN Reason: Protocol Last Admin: 01/12/18 11:57 Dose: 1 unit Ondansetron HCl (Zofran) 4 mg IVPUSH Q8H PRN PRN Reason: Nausea/Vomiting Last Admin: 01/11/18 17:20 Dose: 4 mg Ondansetron HCl (Zofran Odt) 4 mg PO Q6H PRN PRN Reason: Nausea/Vomiting Polyethylene Glycol (Miralax) 17 gm PO DAILY PRN PRN Reason: Constipation Saccharomyces Boulardii (Florastor) 250 mg PO DAILY [facility] Last Admin: 01/12/18 08:32 Dose: 250 mg Sertraline HCl (Zoloft) 75 mg PO DAILY [facility] Last Admin: 01/12/18 08:34 Dose: 75 mg Discontinued Medications Hydrocodone Bitart/Acetaminophen ([place] 325-5 Mg) 1 tab PO 0800,1300,1800,2200 [facility] Last Admin: 01/12/18 11:10 Dose: Not Given Docusate Sodium (Colace) 100 mg PO BEDTIME [facility] Magnesium Sulfate 2 gm/ Premix 50 mls @ 50 mls/hr IV ONETIME ONE Stop: 01/10/18 14:28 Last Admin: 01/10/18 13:42 Dose: 50 mls/hr Sodium Chloride (Normal Saline) 1,000 mls @ 500 mls/hr IV ONETIME ONE Stop: 01/10/18 15:28 Last Admin: 01/10/18 13:42 Dose: 500 mls/hr Sodium Chloride (Sodium Chloride 0.45%) 1,000 mls @ 150 mls/hr IV ASDIRECTED [facility] Last Admin: 01/11/18 13:23 Dose: 150 mls/hr Magnesium Sulfate 2 gm/ Premix 50 mls @ 25 mls/hr IV Q2H [facility] Stop: 01/11/18 17:59 Last Admin: 01/11/18 16:31 Dose: 25 mls/hr Doxycycline Hyclate 100 mg/ (Sodium Chloride) 100 mls @ 100 mls/hr IV Q12HR [facility] Last Admin: 01/12/18 08:36 Dose: 100 mls/hr Lactobacillus Acidophilus La-5, Bifdobacterium 250 each PO DAILY [facility] Last Admin: 01/11/18 10:33 Dose: 250 each Potassium Chloride (Klor-Con M20) 40 meq PO BID [facility] Stop: 01/12/18 09:01 Last Admin: 01/12/18 08:35 Dose: 40 meq - Exam General: Alert, Oriented, Cooperative, No Acute Distress HEENT: Pupils Equal, Pupils Reactive, EOMI, Mucous Membr. Moist/[place] Neck: Supple, Trachea Midline, No JVD Lungs: Clear to Auscultation, Normal Respiratory Effort, Decreased Breath Sounds Cardiovascular: Regular Rate, Regular Rhythm GI/Abdominal Exam: Normal Bowel Sounds, Soft, Non-Tender, No Organomegaly, No Distention, No Abnormal Bruit, No Mass, Pelvis Stable (Female) Exam: Deferred Back Exam: Normal Inspection, Other (Kyphotic ) Extremities: Normal Inspection, Normal Range of Motion, Non-Tender, No Pedal Edema, Normal Capillary Refill Peripheral Pulses: 2+: Radial (L), Radial (R), Posterior Tibial (L), Posterior Tibial (R), Dorsalis Pedis (L), Dorsalis Pedis (R) Skin: Warm, Dry, Intact Neurological: No New Focal Deficit Psy/Mental Status: Alert, Normal Affect, Normal Mood - Problem List & Annotations (1) Hypokalemia SNOMED Code(s): 88373890 Code(s): E87.6 - HYPOKALEMIA Status: Acute Priority: High Current Visit : Yes (2) Mycoplasma pneumonia SNOMED Code(s): 97109220 Code(s): J15.7 - PNEUMONIA DUE TO MYCOPLASMA PNEUMONIAE Status: Acute Priority: High Current Visit: Yes Qualifiers: Laterality: unspecified laterality Lung location: unspecified part of lung Qualified Code(s): J15.7 - Pneumonia due to Mycoplasma pneumoniae (3) CAD (coronary artery disease) SNOMED Code(s): 76797299 Code(s): I25.10 - ATHSCL HEART DISEASE OF [place] CORONARY ARTERY W/O ANG PCTRS Status: Chronic Priority: Low Current Visit: No Qualifiers: Coronary Disease-Associated Artery/Lesion type: unspecified vessel or lesion type [place] vs. 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 donkey engine firer/fireman insulin use status Qualified Code(s): E11.9 - Type 2 diabetes mellitus without complications (5) Hypertension SNOMED Code(s): 81512128 Code(s): I10 - ESSENTIAL (PRIMARY) HYPERTENSION Status: Chronic Priority : Medium Current Visit: No Qualifiers: Hypertension type: unspecified Qualified Code(s): I10 - Essential (primary ) hypertension (6) Hypomagnesemia SNOMED Code(s): 158951440 Code(s): E83.42 - HYPOMAGNESEMIA Status: Acute Priority: High Current Visit: Yes - Problem List Review Problem List Initiated/Reviewed/Updated: Yes - My Orders Last 24 Hours: My Active Orders 01/11/18 18:02 Consult to Case Management [CONS] Routine Consult to Occupational Therapy [OT Evaluation and Treatment] [CONS] Routine Consult to Associate Publisher [CONS] Routine Consult to Spiritual Care [CONS] Routine PT Evaluation and Treatment [CONS] Routine 01/11/18 18:05 Incentive Spirometry [RT Incentive Spirometry] [RC] ASDIRECTED 01/11/18 18:31 Consult to Dietary [Consult to Retail Assistant Manager] [CONS] Routine 01/11/18 19:23 Height and Weight [RC] 04 01/11/18 19:24 Intake and Output [RC] 04,16 Oxygen Therapy [RC] PRN Pulse Oximetry [RC] PRN VTE/DVT Education [RC] 10,22 Vital Signs [RC] Q4H 01/12/18 Breakfast ADA Diabetic [[place] [employer] Diet] [DIET] 01/13/18 05:11 MAGNESIUM [CHEM] AM 01/14/18 05:11 MAGNESIUM [CHEM] AM 01/15/18 05:11 MAGNESIUM [CHEM] AM - Plan Plan:: Impression: Chest pain, atypical with history of DM/CAD (PCI), likely 2/2 infection; improved to resolved Dehydration; improved hypomagnesemia - resolved Hypokalemia - resolved Positive mycoplasma pneumonia Diarrhea earlier today - resolved Chronic HTN CAD HLD Diabetes mellitus type II Plan: IVF Antiemetic Infectious work up - positive for mycoplasma pneuomonia, negative flu Doxycycline--> switch to PO azithromycin Ischemic evaluation Stool studies (re: diarrhea) Droplet/contact Isolation Supplement electrolytes Home meds Daily Labs Consult PT/OT/CM (re: HH) DVT/GI prophylaxis Code status: Full code; PCP: CRAIG Isaacs here at [facility]
[2018-01-12] MEDS: hydrALAZINE 20 MG/ML SDV IVPUSH PRN (16:37)
[2018-01-12] MEDS ORDERED: Docusate Sodium 100 MG Cap PO SCH (21:00)
[2018-01-13] MEDS: Insulin Aspart 100 Units/ML 3 ML Pen SUBCUT SCH ×4 (07:56→21:29)
[2018-01-13] MEDS: Saccharomyces Boulardii (Probiotic) 250 MG Cap PO SCH (08:26)
[2018-01-13] MEDS: Aspirin 81 MG Tab.EC PO SCH (08:26)
[2018-01-13] MEDS: Sertraline 50 MG Tab PO SCH (08:26)
[2018-01-13] MEDS: Acetaminophen/HYDROcodone 325-5 MG Tab PO SCH ×4 (08:27→21:22)
[2018-01-13] MEDS: Docusate Sodium 100 MG Cap PO SCH (08:27)
[2018-01-13] MEDS ORDERED: Magnesium Sulfate/Water 2 GM in Premix Bag 1 BAG IV ONE (11:12)
[2018-01-13] MEDS: hydrALAZINE 20 MG/ML SDV IVPUSH PRN (11:59)
[2018-01-13] MEDS: Azithromycin 250 MG Tab PO SCH (13:20)
--- NOTE | 2018-01-13 18:25 | PCM.PN ---
- General Info Date of Service: 01/13/18 Subjective Update: Slowly improving, has had poor appetite. Functional Status: Reports: Urinating - Review of Systems General: Reports: No Symptoms HEENT: Reports: No Symptoms Pulmonary: Reports: No Symptoms Cardiovascular: Reports: No Symptoms Gastrointestinal: Reports: No Symptoms Genitourinary: Reports: No Symptoms Musculoskeletal: Reports: No Symptoms Skin: Reports: No Symptoms Neurological: Reports: No Symptoms Psychiatric: Reports: No Symptoms - Patient Data Vitals - Most Recent: Last Vital Signs Temp 36.7 C 01/13/18 15:50 Pulse 83 01/13/18 15:50 Resp 16 01/13/18 15:50 BP 143/67 H 01/13/18 15:50 Pulse Ox 99 01/13/18 15:50 Weight - Most Recent: 7.535 kg I&O - Last 24 Hours: Intake & Output 01/13/18 01/13/18 01/13/18 06:59 14:59 22:59 Intake Total 180 120 420 Balance 180 120 420 Lab Results Last 24 Hours: Laboratory Results - last 24 hr 01/12/18 01/13/18 01/13/18 Range/Units 22:16 05:45 06:12 WBC 8.89 (3.98-10.04) K/mm3 RBC 4.20 (3.98-5.22) M/mm3 Hgb 12.5 (11.2-15.7) gm/L Hct 39.1 (34.1-44.9) % MCV 93.1 (79.4-94.8) fl MCH 29.8 (25.6-32.2) pg MCHC 32.0 L (32.2-35.5) g/dl RDW Std Deviation 42.6 (36.4-46.3) fL Plt Count 292 (182-369) K/mm3 MPV 10.2 (9.4-12.3) fl Neut % (Auto) 62.7 (34.0-71.1) % Lymph % (Auto) 23.8 (19.3-51.7) % [place] % (Auto) 9.1 (4.7-12.5) % Eos % (Auto) 3.4 (0.7-5.8) Baso % (Auto) 0.9 (0.1-1.2) % Neut # (Auto) 5.57 (1.56-6.13) K/mm3 Lymph # (Auto) 2.12 (1.18-3.74) K/mm3 [place] # (Auto) 0.81 H (0.24-0.36) K/mm3 Eos # (Auto) 0.30 (0.04-0.36) K/mm3 Baso # (Auto) 0.08 (0.01-0.08) K/mm3 Sodium 140 (136-145) mEq/L Potassium 3.8 (3.5-5.1) mEq/L Chloride 106 (98-107) mEq/L Carbon Dioxide 25 (21-32) mEq/L Anion Gap 12.8 (5-15) BUN 9 (7-18) mg/dL Creatinine 1.0 (0.55-1.02) mg/dL Est Cr Clr Drug Dosing TNP Estimated GFR (MDRD) 53 (>60) mL/min BUN/Creatinine Ratio 9.0 L (14-18) Glucose 126 H (83-115) mg/dL POC Glucose 132 H (83-110) mg/dL Calcium 9.1 (8.5-10.1) mg/dL Magnesium (1.8-2.4) mg/dl C-Reactive Protein 2.1 H* (<1.0) mg/dL 01/13/18 01/13/18 01/13/18 Range/Units 06:12 06:27 10:45 WBC (3.98-10.04) K/mm3 RBC (3.98-5.22) M/mm3 Hgb (11.2-15.7) gm/L Hct (34.1-44.9) % MCV (79.4-94.8) fl MCH (25.6-32.2) pg MCHC (32.2-35.5) g/dl RDW Std Deviation (36.4-46.3) fL Plt Count (182-369) K/mm3 MPV (9.4-12.3) fl Neut % (Auto) (34.0-71.1) % Lymph % (Auto) (19.3-51.7) % [place] % (Auto) (4.7-12.5) % Eos % (Auto) (0.7-5.8) Baso % (Auto) (0.1-1.2) % Neut # (Auto) (1.56-6.13) K/mm3 Lymph # (Auto) (1.18-3.74) K/mm3 [place] # (Auto) (0.24-0.36) K/mm3 Eos # (Auto) (0.04-0.36) K/mm3 Baso # (Auto) (0.01-0.08) K/mm3 Sodium (136-145) mEq/L Potassium (3.5-5.1) mEq/L Chloride (98-107) mEq/L Carbon Dioxide (21-32) mEq/L Anion Gap (5-15) BUN (7-18) mg/dL Creatinine (0.55-1.02) mg/dL Est Cr Clr Drug Dosing Estimated GFR (MDRD) (>60) mL/min BUN/Creatinine Ratio (14-18) Glucose (83-115) mg/dL POC Glucose 127 H 161 H (83-110) mg/dL Calcium (8.5-10.1) mg/dL Magnesium 1.7 L (1.8-2.4) mg/dl C-Reactive Protein (<1.0) mg/dL 01/13/18 Range/Units 16:51 WBC (3.98-10.04) K/mm3 RBC (3.98-5.22) M/mm3 Hgb (11.2-15.7) gm/L Hct (34.1-44.9) % MCV (79.4-94.8) fl MCH (25.6-32.2) pg MCHC (32.2-35.5) g/dl RDW Std Deviation (36.4-46.3) fL Plt Count (182-369) K/mm3 MPV (9.4-12.3) fl Neut % (Auto) (34.0-71.1) % Lymph % (Auto) (19.3-51.7) % [place] % (Auto) (4.7-12.5) % Eos % (Auto) (0.7-5.8) Baso % (Auto) (0.1-1.2) % Neut # (Auto) (1.56-6.13) K/mm3 Lymph # (Auto) (1.18-3.74) K/mm3 [place] # (Auto) (0.24-0.36) K/mm3 Eos # (Auto) (0.04-0.36) K/mm3 Baso # (Auto) (0.01-0.08) K/mm3 Sodium (136-145) mEq/L Potassium (3.5-5.1) mEq/L Chloride (98-107) mEq/L Carbon Dioxide (21-32) mEq/L Anion Gap (5-15) BUN (7-18) mg/dL Creatinine (0.55-1.02) mg/dL Est Cr Clr Drug Dosing Estimated GFR (MDRD) (>60) mL/min BUN/Creatinine Ratio (14-18) Glucose (83-115) mg/dL POC Glucose 171 H (83-110) mg/dL Calcium (8.5-10.1) mg/dL Magnesium (1.8-2.4) mg/dl C-Reactive Protein (<1.0) mg/dL Bo Results Last 24 Hours: Microbiology 01/13/18 14:32 Stool for WBCs - Final Stool / Feces NO WBC SEEN 01/13/18 14:32 Stool Occult Blood (BO) - Final Stool / Feces Med Orders - Current: Current Medications Acetaminophen (Tylenol) 650 mg PO Q6H PRN PRN Reason: Pain/Fever Hydrocodone Bitart/Acetaminophen ([place] 325-10 Mg) 1 tab PO Q4H PRN PRN Reason: Pain Last Admin: 01/11/18 22:00 Dose: 1 tab Hydrocodone Bitart/Acetaminophen ([place] 325-5 Mg) 1 tab PO BID@0800,1300 [facility] Last Admin: 01/13/18 13:19 Dose: 1 tab Hydrocodone Bitart/Acetaminophen ([place] 325-5 Mg) 1 tab PO BID@1800,2200 [facility] Last Admin: 01/13/18 17:52 Dose: Not Given Aspirin (Halfprin) 81 mg PO DAILY [facility] Last Admin: 01/13/18 08:26 Dose: 81 mg Azithromycin (Zithromax) 250 mg PO Q24H [facility] Last Admin: 01/13/18 13:20 Dose: 250 mg Dextrose/Water (Dextrose 50% In Water) 50 ml IVPUSH ASDIRECTED PRN PRN Reason: Hypoglycemia Docusate Sodium (Colace) 100 mg PO DAILY [facility] Last Admin: 01/13/18 08:27 Dose: 100 mg Hydralazine HCl (Apresoline) 20 mg IVPUSH Q6H PRN PRN Reason: Hypertension Last Admin: 01/13/18 11:59 Dose: 20 mg Insulin Aspart (Novolog) 0 unit SUBCUT QIDACANDBED OBI PRN Reason: Protocol Last Admin: 01/13/18 17:52 Dose: 1 unit Ondansetron HCl (Zofran) 4 mg IVPUSH Q8H PRN PRN Reason: Nausea/Vomiting Last Admin: 01/11/18 17:20 Dose: 4 mg Ondansetron HCl (Zofran Odt) 4 mg PO Q6H PRN PRN Reason: Nausea/Vomiting Last Admin: 01/12/18 18:03 Dose: 4 mg Polyethylene Glycol (Miralax) 17 gm PO DAILY PRN PRN Reason: Constipation Saccharomyces Boulardii (Florastor) 250 mg PO DAILY [facility] Last Admin: 01/13/18 08:26 Dose: 250 mg Sertraline HCl (Zoloft) 75 mg PO DAILY [facility] Last Admin: 01/13/18 08:26 Dose: 75 mg Discontinued Medications Hydrocodone Bitart/Acetaminophen ([place] 325-5 Mg) 1 tab PO 0800,1300,1800,2200 [facility] Last Admin: 01/12/18 11:10 Dose: Not Given Docusate Sodium (Colace) 100 mg PO BEDTIME [facility] Docusate Sodium (Colace) 100 mg PO BEDTIME [facility] Magnesium Sulfate 2 gm/ Premix 50 mls @ 50 mls/hr IV ONETIME ONE Stop: 01/10/18 14:28 Last Admin: 01/10/18 13:42 Dose: 50 mls/hr Sodium Chloride (Normal Saline) 1,000 mls @ 500 mls/hr IV ONETIME ONE Stop: 01/10/18 15:28 Last Admin: 01/10/18 13:42 Dose: 500 mls/hr Sodium Chloride (Sodium Chloride 0.45%) 1,000 mls @ 150 mls/hr IV ASDIRECTED [facility] Last Admin: 01/11/18 13:23 Dose: 150 mls/hr Magnesium Sulfate 2 gm/ Premix 50 mls @ 25 mls/hr IV Q2H [facility] Stop: 01/11/18 17:59 Last Admin: 01/11/18 16:31 Dose: 25 mls/hr Sodium Chloride (Sodium Chloride 0.45%) 1,000 mls @ 50 mls/hr IV ASDIRECTED [facility] Last Admin: 01/12/18 07:39 Dose: 50 mls/hr Doxycycline Hyclate 100 mg/ (Sodium Chloride) 100 mls @ 100 mls/hr IV Q12HR [facility] Last Admin: 01/12/18 08:36 Dose: 100 mls/hr Magnesium Sulfate 2 gm/ Premix 50 mls @ 25 mls/hr IV ONETIME ONE Stop: 01/13/18 13:11 Last Admin: 01/13/18 11:53 Dose: 25 mls/hr Lactobacillus Acidophilus La-5, Bifdobacterium 250 each PO DAILY [facility] Last Admin: 01/11/18 10:33 Dose: 250 each Potassium Chloride (Klor-Con M20) 40 meq PO BID [facility] Stop: 01/12/18 09:01 Last Admin: 01/12/18 08:35 Dose: 40 meq - Exam Quality Assessment: Supplemental Oxygen, DVT Prophylaxis General: Alert, Oriented, Cooperative, No Acute Distress HEENT: Pupils Equal, Pupils Reactive, EOMI Neck: Supple, Trachea Midline, No JVD Lungs: Normal Respiratory Effort, Decreased Breath Sounds Cardiovascular: Regular Rate GI/Abdominal Exam: Normal Bowel Sounds, Soft, Non-Tender, No Organomegaly, No Distention (Female) Exam: Deferred Back Exam: Normal Inspection Extremities: Normal Inspection, Non-Tender, Normal Capillary Refill Skin: Warm Neurological: No New Focal Deficit Psy/Mental Status: Alert, Normal Affect, Normal Mood - Problem List & Annotations (1) CAD (coronary artery disease) SNOMED Code(s): 64087042 Code(s): I25.10 - ATHSCL HEART DISEASE OF [place] CORONARY ARTERY W/O ANG PCTRS Status: Chronic Priority: Low Current Visit: No Qualifiers: Coronary Disease-Associated Artery/Lesion type: unspecified vessel or lesion type [place] vs. transplanted heart: unspecified whether [place] or transplanted heart Associated angina: angina presence unspecified Qualified Code(s): I25.10 - Atherosclerotic heart disease of [place] coronary artery without angina pectoris (2) Hypertension SNOMED Code(s): 95673495 Code(s): I10 - ESSENTIAL (PRIMARY) HYPERTENSION Status: Chronic Priority : Medium Current Visit: No Qualifiers: Hypertension type: unspecified Qualified Code(s): I10 - Essential (primary ) hypertension (3) Depression SNOMED Code(s): 54547248 Code(s): F32.9 - MAJOR DEPRESSIVE DISORDER, SINGLE EPISODE, UNSPECIFIED Status: Acute Current Visit: Yes (4) Diabetes SNOMED Code(s): 39462089 Code(s): E11.9 - TYPE 2 DIABETES MELLITUS WITHOUT COMPLICATIONS Status: Chronic Priority: Medium Current Visit: Yes Qualifiers: Diabetes mellitus type: type 2 Diabetes mellitus complication status: without complication Diabetes mellitus skilled nursing insulin use: unspecified disability services coordinator insulin use status Qualified Code(s): E11.9 - Type 2 diabetes mellitus without complications (5) Hypomagnesemia SNOMED Code(s): 980641408 Code(s): E83.42 - HYPOMAGNESEMIA Status: Acute Priority: High Current Visit: Yes - Problem List Review Problem List Initiated/Reviewed/Updated: Yes - My Orders Last 24 Hours: My Active Orders 01/12/18 18:00 Acetaminophen/HYDROcodone [[place] 325-5 MG] 1 tab PO BID@1800,2200 - Plan Plan:: Impression: Chest pain, atypical with history of DM/CAD (PCI), likely 2/2 infection; improved to resolved Dehydration; improved hypomagnesemia - resolved Hypokalemia - resolved Positive mycoplasma pneumonia Diarrhea earlier today - resolved Chronic HTN CAD HLD Diabetes mellitus type II Plan: IVF Antiemetic Infectious work up - positive for mycoplasma pneuomonia, negative flu Doxycycline--> switch to PO azithromycin Ischemic evaluation Stool studies (re: diarrhea) Droplet/contact Isolation Supplement electrolytes Home meds Daily Labs Consult PT/OT/CM (re: HH) DVT/GI prophylaxis Code status: Full code; PCP: CRAIG Isaacs here at [facility]
[2018-01-14] MEDS: Insulin Aspart 100 Units/ML 3 ML Pen SUBCUT SCH ×4 (08:34→21:35)
[2018-01-14] MEDS: Saccharomyces Boulardii (Probiotic) 250 MG Cap PO SCH (08:35)
[2018-01-14] MEDS: Sertraline 50 MG Tab PO SCH (08:35)
[2018-01-14] MEDS: Acetaminophen/HYDROcodone 325-5 MG Tab PO SCH ×4 (08:36→21:35)
[2018-01-14] MEDS: Docusate Sodium 100 MG Cap PO SCH (08:37)
[2018-01-14] MEDS: Aspirin 81 MG Tab.EC PO SCH (08:37)
[2018-01-14] MEDS: Azithromycin 250 MG Tab PO SCH (12:52)
--- NOTE | 2018-01-14 15:34 | PCM.PN ---
- General Info Date of Service: 01/14/18 Subjective Update: Patient is getting stronger but continues to have a poor appetite, has had less episodes of nausea. Functional Status: Reports: Tolerating Diet, Urinating - Review of Systems General: Reports: Weakness HEENT: Reports: No Symptoms Pulmonary: Reports: No Symptoms Cardiovascular: Reports: No Symptoms Gastrointestinal: Reports: No Symptoms Genitourinary: Reports: No Symptoms Musculoskeletal: Reports: No Symptoms Skin: Reports: No Symptoms Neurological: Reports: No Symptoms Psychiatric: Reports: No Symptoms - Patient Data Vitals - Most Recent: Last Vital Signs Temp 36.7 C 01/14/18 11:38 Pulse 81 01/14/18 11:38 Resp 16 01/14/18 11:38 BP 136/83 01/14/18 11:38 Pulse Ox 97 01/14/18 11:38 Weight - Most Recent: 67.041 kg I&O - Last 24 Hours: Intake & Output 01/14/18 01/14/18 01/14/18 06:59 14:59 22:59 Intake Total 120 Output Total Balance 120 Lab Results Last 24 Hours: Laboratory Results - last 24 hr 01/13/18 01/13/18 01/14/18 Range/Units 16:51 20:08 06:12 WBC 8.72 (3.98-10.04) K/mm3 RBC 4.29 (3.98-5.22) M/mm3 Hgb 12.9 (11.2-15.7) gm/L Hct 39.8 (34.1-44.9) % MCV 92.8 (79.4-94.8) fl MCH 30.1 (25.6-32.2) pg MCHC 32.4 (32.2-35.5) g/dl RDW Std Deviation 42.1 (36.4-46.3) fL Plt Count 292 (182-369) K/mm3 MPV 10.3 (9.4-12.3) fl Neut % (Auto) 63.9 (34.0-71.1) % Lymph % (Auto) 20.6 (19.3-51.7) % [place] % (Auto) 10.1 (4.7-12.5) % Eos % (Auto) 4.5 (0.7-5.8) Baso % (Auto) 0.6 (0.1-1.2) % Neut # (Auto) 5.57 (1.56-6.13) K/mm3 Lymph # (Auto) 1.80 (1.18-3.74) K/mm3 [place] # (Auto) 0.88 H (0.24-0.36) K/mm3 Eos # (Auto) 0.39 H (0.04-0.36) K/mm3 Baso # (Auto) 0.05 (0.01-0.08) K/mm3 Sodium (136-145) mEq/L Potassium (3.5-5.1) mEq/L Chloride (98-107) mEq/L Carbon Dioxide (21-32) mEq/L Anion Gap (5-15) BUN (7-18) mg/dL Creatinine (0.55-1.02) mg/dL Est Cr Clr Drug Dosing mL/min Estimated GFR (MDRD) (>60) mL/min BUN/Creatinine Ratio (14-18) Glucose (83-115) mg/dL POC Glucose 171 H 181 H (83-110) mg/dL Calcium (8.5-10.1) mg/dL Magnesium (1.8-2.4) mg/dl C-Reactive Protein (<1.0) mg/dL 01/14/18 01/14/18 01/14/18 Range/Units 06:12 06:12 06:18 WBC (3.98-10.04) K/mm3 RBC (3.98-5.22) M/mm3 Hgb (11.2-15.7) gm/L Hct (34.1-44.9) % MCV (79.4-94.8) fl MCH (25.6-32.2) pg MCHC (32.2-35.5) g/dl RDW Std Deviation (36.4-46.3) fL Plt Count (182-369) K/mm3 MPV (9.4-12.3) fl Neut % (Auto) (34.0-71.1) % Lymph % (Auto) (19.3-51.7) % [place] % (Auto) (4.7-12.5) % Eos % (Auto) (0.7-5.8) Baso % (Auto) (0.1-1.2) % Neut # (Auto) (1.56-6.13) K/mm3 Lymph # (Auto) (1.18-3.74) K/mm3 [place] # (Auto) (0.24-0.36) K/mm3 Eos # (Auto) (0.04-0.36) K/mm3 Baso # (Auto) (0.01-0.08) K/mm3 Sodium 140 (136-145) mEq/L Potassium 3.5 (3.5-5.1) mEq/L Chloride 104 (98-107) mEq/L Carbon Dioxide 26 (21-32) mEq/L Anion Gap 13.5 (5-15) BUN 9 (7-18) mg/dL Creatinine 1.0 (0.55-1.02) mg/dL Est Cr Clr Drug Dosing 32.73 mL/min Estimated GFR (MDRD) 53 (>60) mL/min BUN/Creatinine Ratio 9.0 L (14-18) Glucose 148 H (83-115) mg/dL POC Glucose 169 H (83-110) mg/dL Calcium 9.2 (8.5-10.1) mg/dL Magnesium 1.7 L (1.8-2.4) mg/dl C-Reactive Protein 1.3 H* (<1.0) mg/dL 01/14/18 Range/Units 11:31 WBC (3.98-10.04) K/mm3 RBC (3.98-5.22) M/mm3 Hgb (11.2-15.7) gm/L Hct (34.1-44.9) % MCV (79.4-94.8) fl MCH (25.6-32.2) pg MCHC (32.2-35.5) g/dl RDW Std Deviation (36.4-46.3) fL Plt Count (182-369) K/mm3 MPV (9.4-12.3) fl Neut % (Auto) (34.0-71.1) % Lymph % (Auto) (19.3-51.7) % [place] % (Auto) (4.7-12.5) % Eos % (Auto) (0.7-5.8) Baso % (Auto) (0.1-1.2) % Neut # (Auto) (1.56-6.13) K/mm3 Lymph # (Auto) (1.18-3.74) K/mm3 [place] # (Auto) (0.24-0.36) K/mm3 Eos # (Auto) (0.04-0.36) K/mm3 Baso # (Auto) (0.01-0.08) K/mm3 Sodium (136-145) mEq/L Potassium (3.5-5.1) mEq/L Chloride (98-107) mEq/L Carbon Dioxide (21-32) mEq/L Anion Gap (5-15) BUN (7-18) mg/dL Creatinine (0.55-1.02) mg/dL Est Cr Clr Drug Dosing mL/min Estimated GFR (MDRD) (>60) mL/min BUN/Creatinine Ratio (14-18) Glucose (83-115) mg/dL POC Glucose 180 H (83-110) mg/dL Calcium (8.5-10.1) mg/dL Magnesium (1.8-2.4) mg/dl C-Reactive Protein (<1.0) mg/dL Bo Results Last 24 Hours: Microbiology 01/13/18 14:32 Stool for WBCs - Final Stool / Feces NO WBC SEEN 01/13/18 14:32 Stool Occult Blood (BO) - Final Stool / Feces Med Orders - Current: Current Medications Acetaminophen (Tylenol) 650 mg PO Q6H PRN PRN Reason: Pain/Fever Hydrocodone Bitart/Acetaminophen ([place] 325-10 Mg) 1 tab PO Q4H PRN PRN Reason: Pain Last Admin: 01/11/18 22:00 Dose: 1 tab Hydrocodone Bitart/Acetaminophen ([place] 325-5 Mg) 1 tab PO BID@0800,1300 [facility] Last Admin: 01/14/18 12:51 Dose: 1 tab Hydrocodone Bitart/Acetaminophen ([place] 325-5 Mg) 1 tab PO BID@1800,2200 [facility] Last Admin: 01/13/18 21:22 Dose: 1 tab Aspirin (Halfprin) 81 mg PO DAILY [facility] Last Admin: 01/14/18 08:37 Dose: 81 mg Azithromycin (Zithromax) 250 mg PO Q24H [facility] Last Admin: 01/14/18 12:52 Dose: 250 mg Dextrose/Water (Dextrose 50% In Water) 50 ml IVPUSH ASDIRECTED PRN PRN Reason: Hypoglycemia Docusate Sodium (Colace) 100 mg PO DAILY [facility] Last Admin: 01/14/18 08:37 Dose: 100 mg Hydralazine HCl (Apresoline) 20 mg IVPUSH Q6H PRN PRN Reason: Hypertension Last Admin: 01/13/18 11:59 Dose: 20 mg Insulin Aspart (Novolog) 0 unit SUBCUT QIDACANDBED OBI PRN Reason: Protocol Last Admin: 01/14/18 12:52 Dose: 1 unit Ondansetron HCl (Zofran) 4 mg IVPUSH Q8H PRN PRN Reason: Nausea/Vomiting Last Admin: 01/11/18 17:20 Dose: 4 mg Ondansetron HCl (Zofran Odt) 4 mg PO Q6H PRN PRN Reason: Nausea/Vomiting Last Admin: 01/12/18 18:03 Dose: 4 mg Polyethylene Glycol (Miralax) 17 gm PO DAILY PRN PRN Reason: Constipation Saccharomyces Boulardii (Florastor) 250 mg PO DAILY [facility] Last Admin: 01/14/18 08:35 Dose: 250 mg Sertraline HCl (Zoloft) 75 mg PO DAILY [facility] Last Admin: 01/14/18 08:35 Dose: 75 mg Discontinued Medications Hydrocodone Bitart/Acetaminophen ([place] 325-5 Mg) 1 tab PO 0800,1300,1800,2200 [facility] Last Admin: 01/12/18 11:10 Dose: Not Given Docusate Sodium (Colace) 100 mg PO BEDTIME [facility] Docusate Sodium (Colace) 100 mg PO BEDTIME [facility] Magnesium Sulfate 2 gm/ Premix 50 mls @ 50 mls/hr IV ONETIME ONE Stop: 01/10/18 14:28 Last Admin: 01/10/18 13:42 Dose: 50 mls/hr Sodium Chloride (Normal Saline) 1,000 mls @ 500 mls/hr IV ONETIME ONE Stop: 01/10/18 15:28 Last Admin: 01/10/18 13:42 Dose: 500 mls/hr Sodium Chloride (Sodium Chloride 0.45%) 1,000 mls @ 150 mls/hr IV ASDIRECTED [facility] Last Admin: 01/11/18 13:23 Dose: 150 mls/hr Magnesium Sulfate 2 gm/ Premix 50 mls @ 25 mls/hr IV Q2H [facility] Stop: 01/11/18 17:59 Last Admin: 01/11/18 16:31 Dose: 25 mls/hr Sodium Chloride (Sodium Chloride 0.45%) 1,000 mls @ 50 mls/hr IV ASDIRECTED [facility] Last Admin: 01/12/18 07:39 Dose: 50 mls/hr Doxycycline Hyclate 100 mg/ (Sodium Chloride) 100 mls @ 100 mls/hr IV Q12HR [facility] Last Admin: 01/12/18 08:36 Dose: 100 mls/hr Magnesium Sulfate 2 gm/ Premix 50 mls @ 25 mls/hr IV ONETIME ONE Stop: 01/13/18 13:11 Last Admin: 01/13/18 11:53 Dose: 25 mls/hr Lactobacillus Acidophilus La-5, Bifdobacterium 250 each PO DAILY [facility] Last Admin: 01/11/18 10:33 Dose: 250 each Potassium Chloride (Klor-Con M20) 40 meq PO BID [facility] Stop: 01/12/18 09:01 Last Admin: 01/12/18 08:35 Dose: 40 meq - Exam Quality Assessment: DVT Prophylaxis General: Alert, Oriented, Cooperative, No Acute Distress HEENT: Pupils Equal, Pupils Reactive, EOMI Neck: Supple, Trachea Midline, No JVD Lungs: Normal Respiratory Effort Cardiovascular: Regular Rate GI/Abdominal Exam: Normal Bowel Sounds, Soft, Non-Tender, No Organomegaly, No Distention (Female) Exam: Deferred Back Exam: Normal Inspection Extremities: Normal Inspection, Normal Range of Motion, Non-Tender, No Pedal Edema Skin: Warm, Dry Neurological: No New Focal Deficit Psy/Mental Status: Alert, Normal Affect, Normal Mood - Problem List & Annotations (1) CAD (coronary artery disease) SNOMED Code(s): 48295043 Code(s): I25.10 - ATHSCL HEART DISEASE OF [place] CORONARY ARTERY W/O ANG PCTRS Status: Chronic Priority: Low Current Visit: No Qualifiers: Coronary Disease-Associated Artery/Lesion type: unspecified vessel or lesion type [place] vs. transplanted heart: unspecified whether [place] or transplanted heart Associated angina: angina presence unspecified Qualified Code(s): I25.10 - Atherosclerotic heart disease of [place] coronary artery without angina pectoris (2) Hypertension SNOMED Code(s): 90966084 Code(s): I10 - ESSENTIAL (PRIMARY) HYPERTENSION Status: Chronic Priority : Medium Current Visit: No Qualifiers: Hypertension type: unspecified Qualified Code(s): I10 - Essential (primary ) hypertension (3) Depression SNOMED Code(s): 89689438 Code(s): F32.9 - MAJOR DEPRESSIVE DISORDER, SINGLE EPISODE, UNSPECIFIED Status: Acute Current Visit: Yes (4) Diabetes SNOMED Code(s): 44303916 Code(s): E11.9 - TYPE 2 DIABETES MELLITUS WITHOUT COMPLICATIONS Status: Chronic Priority: Medium Current Visit: Yes Qualifiers: Diabetes mellitus type: type 2 Diabetes mellitus complication status: without complication Diabetes mellitus jail insulin use: unspecified jail insulin use status Qualified Code(s): E11.9 - Type 2 diabetes mellitus without complications (5) Hypomagnesemia SNOMED Code(s): 973385227 Code(s): E83.42 - HYPOMAGNESEMIA Status: Acute Priority: High Current Visit: Yes - Problem List Review Problem List Initiated/Reviewed/Updated: Yes - My Orders Last 24 Hours: My Active Orders 01/15/18 05:00 BASIC METABOLIC PANEL,BMP [CHEM] DAILY CBC WITH AUTO DIFF [HEME] DAILY CRP [C-REACTIVE PROTEIN] [CHEM] DAILY LACTIC ACID [CHEM] DAILY MAGNESIUM [CHEM] DAILY 01/16/18 05:00 BASIC METABOLIC PANEL,BMP [CHEM] DAILY CBC WITH AUTO DIFF [HEME] DAILY CRP [C-REACTIVE PROTEIN] [CHEM] DAILY LACTIC ACID [CHEM] DAILY MAGNESIUM [CHEM] DAILY - Plan Plan:: Impression: Chest pain, atypical with history of DM/CAD (PCI), likely 2/2 infection; improved to resolved Dehydration; improved hypomagnesemia - resolved Hypokalemia - resolved Positive mycoplasma pneumonia Diarrhea earlier today - resolved Chronic HTN CAD HLD Diabetes mellitus type II Plan: IVF Antiemetic Infectious work up - positive for mycoplasma pneuomonia, negative flu Doxycycline--> switch to PO azithromycin; diarrhea stopped Ischemic evaluation Stool studies (re: diarrhea) Droplet/contact Isolation Supplement electrolytes Home meds Daily Labs Consult PT/OT/CM (re: HH) DVT/GI prophylaxis Code status: Full code; PCP: CRAIG Isaacs here at [facility] LOS>96 hours, slow improvement re:PNA; notify Nadia her daughter when she will be DCd, 01/15 or 01/16. TBD
[2018-01-14] MEDS ORDERED: Magnesium Sulfate/Water 2 GM in Premix Bag 1 BAG IV ONE (16:07)
[2018-01-14] MEDS: hydrALAZINE 20 MG/ML SDV IVPUSH PRN (18:27)
[2018-01-15] MEDS: Insulin Aspart 100 Units/ML 3 ML Pen SUBCUT SCH ×4 (08:00→21:01)
[2018-01-15] MEDS: Docusate Sodium 100 MG Cap PO SCH (08:14)
[2018-01-15] MEDS: Aspirin 81 MG Tab.EC PO SCH (08:14)
[2018-01-15] MEDS: Magnesium Oxide 400 MG Tab PO SCH ×2 (08:14→20:41)
[2018-01-15] MEDS: Sertraline 50 MG Tab PO SCH (08:14)
[2018-01-15] MEDS: Saccharomyces Boulardii (Probiotic) 250 MG Cap PO SCH (08:14)
[2018-01-15] MEDS: Acetaminophen/HYDROcodone 325-5 MG Tab PO SCH ×4 (08:15→21:00)
--- NOTE | 2018-01-15 08:48 | PCM.PN ---
- General Info Date of Service: 01/15/18 Admission Dx/Problem (Free Text): Admission Diagnosis/Problem Admission Diagnosis/Problem Hypomagnesemia, mycoplasma + Doing well, coughing is minimal but with some green production. If continues to do well will plan DC tomorrow. Functional Status: Reports: Pain Controlled, Tolerating Diet, Ambulating, Urinating, Incentive Spirometry. Denies: New Symptoms - Review of Systems General: Reports: No Symptoms HEENT: Reports: No Symptoms Pulmonary: Reports: Shortness of Breath (minimal), Cough (minimal) Cardiovascular: Reports: No Symptoms Gastrointestinal: Reports: No Symptoms Genitourinary: Reports: No Symptoms Neurological: Reports: No Symptoms Psychiatric: Reports: No Symptoms - Patient Data Vitals - Most Recent: Last Vital Signs Temp 98.4 F 01/15/18 07:52 Pulse 87 01/15/18 07:52 Resp 19 01/15/18 07:52 BP 135/69 01/15/18 07:52 Pulse Ox 94 L 01/15/18 07:52 Weight - Most Recent: 149 lb I&O - Last 24 Hours: Intake & Output 01/14/18 01/15/18 01/15/18 22:59 06:59 14:59 Intake Total 540 0 Balance 540 0 Lab Results Last 24 Hours: Laboratory Results - last 24 hr 01/14/18 01/14/18 01/14/18 Range/Units 06:18 11:31 16:41 WBC (3.98-10.04) K/mm3 RBC (3.98-5.22) M/mm3 Hgb (11.2-15.7) gm/L Hct (34.1-44.9) % MCV (79.4-94.8) fl MCH (25.6-32.2) pg MCHC (32.2-35.5) g/dl RDW Std Deviation (36.4-46.3) fL Plt Count (182-369) K/mm3 MPV (9.4-12.3) fl Neut % (Auto) (34.0-71.1) % Lymph % (Auto) (19.3-51.7) % [place] % (Auto) (4.7-12.5) % Eos % (Auto) (0.7-5.8) Baso % (Auto) (0.1-1.2) % Neut # (Auto) (1.56-6.13) K/mm3 Lymph # (Auto) (1.18-3.74) K/mm3 [place] # (Auto) (0.24-0.36) K/mm3 Eos # (Auto) (0.04-0.36) K/mm3 Baso # (Auto) (0.01-0.08) K/mm3 Sodium (136-145) mEq/L Potassium (3.5-5.1) mEq/L Chloride (98-107) mEq/L Carbon Dioxide (21-32) mEq/L Anion Gap (5-15) BUN (7-18) mg/dL Creatinine (0.55-1.02) mg/dL Est Cr Clr Drug Dosing mL/min Estimated GFR (MDRD) (>60) mL/min BUN/Creatinine Ratio (14-18) Glucose (83-115) mg/dL POC Glucose 169 H 180 H 156 H (83-110) mg/dL Lactic Acid (0.4-2.0) mmol/L Calcium (8.5-10.1) mg/dL Magnesium (1.8-2.4) mg/dl C-Reactive Protein (<1.0) mg/dL 01/14/18 01/15/18 01/15/18 Range/Units 21:33 05:04 05:04 WBC 8.59 (3.98-10.04) K/mm3 RBC 4.18 (3.98-5.22) M/mm3 Hgb 12.7 (11.2-15.7) gm/L Hct 39.0 (34.1-44.9) % MCV 93.3 (79.4-94.8) fl MCH 30.4 (25.6-32.2) pg MCHC 32.6 (32.2-35.5) g/dl RDW Std Deviation 41.5 (36.4-46.3) fL Plt Count 287 (182-369) K/mm3 MPV 9.7 (9.4-12.3) fl Neut % (Auto) 55.4 (34.0-71.1) % Lymph % (Auto) 27.7 (19.3-51.7) % [place] % (Auto) 10.4 (4.7-12.5) % Eos % (Auto) 5.5 (0.7-5.8) Baso % (Auto) 0.9 (0.1-1.2) % Neut # (Auto) 4.76 (1.56-6.13) K/mm3 Lymph # (Auto) 2.38 (1.18-3.74) K/mm3 [place] # (Auto) 0.89 H (0.24-0.36) K/mm3 Eos # (Auto) 0.47 H (0.04-0.36) K/mm3 Baso # (Auto) 0.08 (0.01-0.08) K/mm3 Sodium 140 (136-145) mEq/L Potassium 3.5 (3.5-5.1) mEq/L Chloride 104 (98-107) mEq/L Carbon Dioxide 28 (21-32) mEq/L Anion Gap 11.5 (5-15) BUN 14 (7-18) mg/dL Creatinine 1.1 H (0.55-1.02) mg/dL Est Cr Clr Drug Dosing 29.75 mL/min Estimated GFR (MDRD) 48 (>60) mL/min BUN/Creatinine Ratio 12.7 L (14-18) Glucose 155 H (83-115) mg/dL POC Glucose 143 H (83-110) mg/dL Lactic Acid (0.4-2.0) mmol/L Calcium 9.1 (8.5-10.1) mg/dL Magnesium 1.8 (1.8-2.4) mg/dl C-Reactive Protein 0.6 (<1.0) mg/dL 01/15/18 01/15/18 Range/Units 05:04 06:52 WBC (3.98-10.04) K/mm3 RBC (3.98-5.22) M/mm3 Hgb (11.2-15.7) gm/L Hct (34.1-44.9) % MCV (79.4-94.8) fl MCH (25.6-32.2) pg MCHC (32.2-35.5) g/dl RDW Std Deviation (36.4-46.3) fL Plt Count (182-369) K/mm3 MPV (9.4-12.3) fl Neut % (Auto) (34.0-71.1) % Lymph % (Auto) (19.3-51.7) % [place] % (Auto) (4.7-12.5) % Eos % (Auto) (0.7-5.8) Baso % (Auto) (0.1-1.2) % Neut # (Auto) (1.56-6.13) K/mm3 Lymph # (Auto) (1.18-3.74) K/mm3 [place] # (Auto) (0.24-0.36) K/mm3 Eos # (Auto) (0.04-0.36) K/mm3 Baso # (Auto) (0.01-0.08) K/mm3 Sodium (136-145) mEq/L Potassium (3.5-5.1) mEq/L Chloride (98-107) mEq/L Carbon Dioxide (21-32) mEq/L Anion Gap (5-15) BUN (7-18) mg/dL Creatinine (0.55-1.02) mg/dL Est Cr Clr Drug Dosing mL/min Estimated GFR (MDRD) (>60) mL/min BUN/Creatinine Ratio (14-18) Glucose (83-115) mg/dL POC Glucose 127 H (83-110) mg/dL Lactic Acid 0.9 (0.4-2.0) mmol/L Calcium (8.5-10.1) mg/dL Magnesium (1.8-2.4) mg/dl C-Reactive Protein (<1.0) mg/dL Med Orders - Current: Current Medications Acetaminophen (Tylenol) 650 mg PO Q6H PRN PRN Reason: Pain/Fever Hydrocodone Bitart/Acetaminophen (Graham 325-10 Mg) 1 tab PO Q4H PRN PRN Reason: Pain Last Admin: 01/11/18 22:00 Dose: 1 tab Hydrocodone Bitart/Acetaminophen ([place]raham 325-5 Mg) 1 tab PO BID@0800,1300 [facility] Last Admin: 01/15/18 08:15 Dose: 1 tab Hydrocodone Bitart/Acetaminophen (Graham 325-5 Mg) 1 tab PO BID@1800,2200 [facility] Last Admin: 01/14/18 21:35 Dose: 1 tab Aspirin (Halfprin) 81 mg PO DAILY [facility] Last Admin: 01/15/18 08:14 Dose: 81 mg Azithromycin (Zithromax) 250 mg PO Q24H [facility] Last Admin: 01/14/18 12:52 Dose: 250 mg Dextrose/Water (Dextrose 50% In Water) 50 ml IVPUSH ASDIRECTED PRN PRN Reason: Hypoglycemia Docusate Sodium (Colace) 100 mg PO DAILY [facility] Last Admin: 01/15/18 08:14 Dose: 100 mg Hydralazine HCl (Apresoline) 20 mg IVPUSH Q6H PRN PRN Reason: Hypertension Last Admin: 01/14/18 18:27 Dose: 20 mg Insulin Aspart (Novolog) 0 unit SUBCUT QIDACANDBED [facility] PRN Reason: Protocol Last Admin: 01/15/18 08:00 Dose: Not Given Magnesium Oxide (Magnesium Oxide) 400 mg PO BID [facility] Last Admin: 01/15/18 08:14 Dose: 400 mg Ondansetron HCl (Zofran) 4 mg IVPUSH Q8H PRN PRN Reason: Nausea/Vomiting Last Admin: 01/11/18 17:20 Dose: 4 mg Ondansetron HCl (Zofran Odt) 4 mg PO Q6H PRN PRN Reason: Nausea/Vomiting Last Admin: 01/12/18 18:03 Dose: 4 mg Polyethylene Glycol (Miralax) 17 gm PO DAILY PRN PRN Reason: Constipation Last Admin: 01/15/18 08:14 Dose: 17 gm Saccharomyces Boulardii (Florastor) 250 mg PO DAILY [facility] Last Admin: 01/15/18 08:14 Dose: 250 mg Sertraline HCl (Zoloft) 75 mg PO DAILY [facility] Last Admin: 01/15/18 08:14 Dose: 75 mg Discontinued Medications Hydrocodone Bitart/Acetaminophen ([place]raham 325-5 Mg) 1 tab PO 0800,1300,1800,2200 [facility] Last Admin: 01/12/18 11:10 Dose: Not Given Docusate Sodium (Colace) 100 mg PO BEDTIME [facility] Docusate Sodium (Colace) 100 mg PO BEDTIME [facility] Magnesium Sulfate 2 gm/ Premix 50 mls @ 50 mls/hr IV ONETIME ONE Stop: 01/10/18 14:28 Last Admin: 01/10/18 13:42 Dose: 50 mls/hr Sodium Chloride (Normal Saline) 1,000 mls @ 500 mls/hr IV ONETIME ONE Stop: 01/10/18 15:28 Last Admin: 01/10/18 13:42 Dose: 500 mls/hr Sodium Chloride (Sodium Chloride 0.45%) 1,000 mls @ 150 mls/hr IV ASDIRECTED [facility] Last Admin: 01/11/18 13:23 Dose: 150 mls/hr Magnesium Sulfate 2 gm/ Premix 50 mls @ 25 mls/hr IV Q2H [facility] Stop: 01/11/18 17:59 Last Admin: 01/11/18 16:31 Dose: 25 mls/hr Sodium Chloride (Sodium Chloride 0.45%) 1,000 mls @ 50 mls/hr IV ASDIRECTED [facility] Last Admin: 01/12/18 07:39 Dose: 50 mls/hr Doxycycline Hyclate 100 mg/ (Sodium Chloride) 100 mls @ 100 mls/hr IV Q12HR [facility] Last Admin: 01/12/18 08:36 Dose: 100 mls/hr Magnesium Sulfate 2 gm/ Premix 50 mls @ 25 mls/hr IV ONETIME ONE Stop: 01/13/18 13:11 Last Admin: 01/13/18 11:53 Dose: 25 mls/hr Magnesium Sulfate 2 gm/ Premix 50 mls @ 25 mls/hr IV ONETIME ONE Stop: 01/14/18 18:06 Last Admin: 01/14/18 16:30 Dose: 25 mls/hr Lactobacillus Acidophilus La-5, Bifdobacterium 250 each PO DAILY [facility] Last Admin: 01/11/18 10:33 Dose: 250 each Potassium Chloride (Klor-Con M20) 40 meq PO BID [facility] Stop: 01/12/18 09:01 Last Admin: 01/12/18 08:35 Dose: 40 meq - Exam Quality Assessment: DVT Prophylaxis General: Alert, Oriented, Cooperative, No Acute Distress HEENT: Pupils Equal, EOMI, Mucous Membr. Moist/Friend Neck: Supple Lungs: Normal Respiratory Effort, Decreased Breath Sounds Cardiovascular: Regular Rate, Regular Rhythm GI/Abdominal Exam: Normal Bowel Sounds, Soft, Non-Tender (Female) Exam: Deferred Extremities: No Pedal Edema, Normal Capillary Refill Neurological: No New Focal Deficit Psy/Mental Status: Alert, Normal Affect, Normal Mood - Problem List & Annotations (1) Mycoplasma pneumonia SNOMED Code(s): 76945207 Code(s): J15.7 - PNEUMONIA DUE TO MYCOPLASMA PNEUMONIAE Status: Acute Priority: High Current Visit: Yes Qualifiers: Laterality: unspecified laterality Lung location: unspecified part of lung Qualified Code(s): J15.7 - Pneumonia due to Mycoplasma pneumoniae (2) Hypomagnesemia SNOMED Code(s): 340145094 Code(s): E83.42 - HYPOMAGNESEMIA Status: Resolved Priority: High Current Visit: Yes (3) Hypertension SNOMED Code(s): 16453157 Code(s): I10 - ESSENTIAL (PRIMARY) HYPERTENSION Status: Chronic Priority : Medium Current Visit: No Qualifiers: Hypertension type: unspecified Qualified Code(s): I10 - Essential (primary ) hypertension (4) Diabetes SNOMED Code(s): 29711656 Code(s): E11.9 - TYPE 2 DIABETES MELLITUS WITHOUT COMPLICATIONS Status: Chronic Priority: Medium Current Visit: Yes Qualifiers: Diabetes mellitus type: type 2 Diabetes mellitus complication status: without complication 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 insulin use: unspecified senior care insulin use status Qualified Code(s): E11.9 - Type 2 diabetes mellitus without complications (5) Hypokalemia SNOMED Code(s): 02963354 Code(s): E87.6 - HYPOKALEMIA Status: Resolved Priority: High Current Visit: Yes - Problem List Review Problem List Initiated/Reviewed/Updated: Yes - Plan Plan:: Impression/Plan : Positive mycoplasma pneumonia--zithromax -RT/nebs/IS Chest pain, atypical with history of DM/CAD (PCI), likely 2/2 infection; improved to resolved Dehydration; improved --resolved hypomagnesemia - resolved, cont to follow with am labs Hypokalemia - resolved, cont to follow with am labs Diarrhea - resolved with change of abx doxy to zithromax Chronic HTN--stable CAD HLD Diabetes mellitus type II--stable, sugars 180-120 the past 24 hours Other: IVF--DC'd Antiemetic --nausea improved to resolved Infectious work up - positive for mycoplasma pneuomonia, negative flu Doxycycline--> switch to PO azithromycin; diarrhea stopped with this switch Ischemic evaluation- negativa Stool studies (re: diarrhea)--negative Droplet/contact Isolation Supplement electrolytes Home meds Daily Labs Consult PT/OT/CM (re: HH) DVT/GI prophylaxis Code status: Full code; PCP: CRAIG Isaacs here at [facility] LOS>96 hours, slow improvement re:PNA; notify Nadia her daughter when she will be DCd, likely tomorrow- patient and family aware of planned DC for tomorrow.
[2018-01-15] MEDS: Acetaminophen/HYDROcodone 325-10 MG Tab PO PRN (11:06)
[2018-01-15] MEDS: Azithromycin 250 MG Tab PO SCH (14:12)
[2018-01-15] MEDS: Enoxaparin 30 MG/0.3 ML Syringe SUBCUT SCH (14:14)
[2018-01-16] MEDS: Insulin Aspart 100 Units/ML 3 ML Pen SUBCUT SCH ×2 (07:49→11:47)
[2018-01-16] MEDS: Saccharomyces Boulardii (Probiotic) 250 MG Cap PO SCH (08:28)
[2018-01-16] MEDS: Magnesium Oxide 400 MG Tab PO SCH (08:29)
[2018-01-16] MEDS: Sertraline 50 MG Tab PO SCH (08:29)
[2018-01-16] MEDS: Docusate Sodium 100 MG Cap PO SCH (08:29)
[2018-01-16] MEDS: Aspirin 81 MG Tab.EC PO SCH (08:29)
[2018-01-16] MEDS: Acetaminophen/HYDROcodone 325-5 MG Tab PO SCH ×2 (08:29→11:45)
[2018-01-16] MEDS: Enoxaparin 30 MG/0.3 ML Syringe SUBCUT SCH (08:30)
--- NOTE | 2018-01-16 09:07 | PCM.DCSUM1 ---
Discharge Summary - Hospital Course Free Text/Narrative:: 82 year old female who has not felt well over two weeks presents with generalized weakness. This is associated with nausea without vomiting. She denies fever or chills. Overall she appears to have had constitutional symptoms which have persisted. - Discharge Data Discharge Date: 01/16/18 (admit date 01/11/18) Discharge Disposition: Home, W Home Health Agency 06 Condition: Good - Discharge Diagnosis/Problem(s) (1) Mycoplasma pneumonia SNOMED Code(s): 32560990 ICD Code: J15.7 - PNEUMONIA DUE TO MYCOPLASMA PNEUMONIAE Status: Acute Priority: High Current Visit: Yes Qualifiers: Laterality: unspecified laterality Lung location: unspecified part of lung Qualified Code(s): J15.7 - Pneumonia due to Mycoplasma pneumoniae (2) Hypomagnesemia SNOMED Code(s): 798430961 ICD Code: E83.42 - HYPOMAGNESEMIA Status: Resolved Priority: High Current Visit: Yes (3) Hypertension SNOMED Code(s): 75882297 ICD Code: I10 - ESSENTIAL (PRIMARY) HYPERTENSION Status: Chronic Priority : Medium Current Visit: Yes Qualifiers: Hypertension type: unspecified Qualified Code(s): I10 - Essential (primary ) hypertension (4) Diabetes SNOMED Code(s): 61103438 ICD Code: E11.9 - TYPE 2 DIABETES MELLITUS WITHOUT COMPLICATIONS Status: Chronic Priority: Medium Current Visit: Yes Qualifiers: Diabetes mellitus type: type 2 Diabetes mellitus complication status: without complication Diabetes mellitus detention insulin use: unspecified detention insulin use status Qualified Code(s): E11.9 - Type 2 diabetes mellitus without complications (5) Hypokalemia SNOMED Code(s): 84648375 ICD Code: E87.6 - HYPOKALEMIA Status: Resolved Priority: High Current Visit: Yes - Patient Summary/Data Operative Procedure(s) Performed: None Complications: None Consults: Consultations 01/11/18 18:02 Consult to Case Management [CONS] Routine Consult to Occupational Therapy [OT Evaluation and Treatment] [CONS] Routine Consult to Fitter Type Bar And Segment [CONS] Routine Consult to Spiritual Care [CONS] Routine PT Evaluation and Treatment [CONS] Routine 01/11/18 18:31 Consult to Dietary [Consult to Steam Cleaning Machine Operator] [CONS] Routine Labs Pending at D/C: None Recommended Follow-up Testing/Procedures: DC instructions: Home Health Care Physical and Occupational Therapy, Nursing and COMMERCIAL COUNSEL services. Nursing: Please call Home Health when pt is d/cd at [phone] (if weekend d/ c call on-call [facility] nurse). Follow up with PCP, DYLAN Isaacs within one week of discharge- consider recheck BMP for potassium and magnesium follow up. Push fluids Hospital Course: Impression/Plan : Positive mycoplasma pneumonia--zithromax- completed 5 day course, no need for abx at discharge -RT/nebs/IS Chest pain, atypical with history of DM/CAD (PCI), likely 2/2 infection; improved to resolved Dehydration; improved --resolved hypomagnesemia - resolved, cont to follow with am labs Hypokalemia - resolved, cont to follow with am labs Diarrhea - resolved with change of abx doxy to zithromax Chronic HTN--stable CAD HLD Diabetes mellitus type II--stable, sugars 180-120 the past 24 hours--A1C 6.3 Other: IVF--DC'd Antiemetic --nausea improved to resolved Infectious work up - positive for mycoplasma pneuomonia, negative flu Doxycycline--> switch to PO azithromycin; diarrhea stopped with this switch Ischemic evaluation- negativa Stool studies (re: diarrhea)--negative Droplet/contact Isolation Supplement electrolytes Home meds Daily Labs Consult PT/OT/CM (re: HH) DVT/GI prophylaxis Code status: Full code; PCP: DYLAN Isaacs-Kyle here at [facility] LOS>96 hours, slow improvement re:PNA; DC home today with [facility] Face to face encounter on day of discharge reveals patient will benefit from [facility] services of nursing, COMMERCIAL COUNSEL services, PT/OT. She is home bound. She will benefit from nursing eval and education re: disease process of mycoplasma pneumonia infection, DM, low Mg and K+, VS monitoring and nursing assessment. COMMERCIAL COUNSEL services for assist with ADL's and bathing, PT/OT for strength and balance training. Patient is home bound. She will f/up with PCP, DYLAN Isaacs wtihin one week of discharge who will assume [facility] orders at that time. - Patient Instructions Diet: Drink 8-10+ Glasses/Day, Diabetic Diet Activity: As Tolerated Showering/Bathing: May Shower Notify Provider of: Fever, Increased Pain, Nausea and/or Vomiting (worsening of cough or shortness of breath) - Discharge Plan Prescriptions/Med Rec: Magnesium Oxide 400 mg PO BID #60 tablet Polyethylene Glycol 3350 [MiraLAX] 17 gm PO DAILY #30 packet Home Medications: Home Meds Albuterol [Proventil HFA] 2 puff INH Q4H PRN 07/14/14 [History] Aspirin [Halfprin] 81 mg PO DAILY 07/14/14 [History] Hydrocodone/Acetaminophen [Hydrocodone-Acetaminophen 5-325] 1 each PO QID [History] Multivitamin [Multi-Vitamin Daily] 1 each PO DAILY 07/14/14 [History] Sertraline [Zoloft] 75 mg PO DAILY 07/14/14 [History] Triamterene/Hydrochlorothiazid [Triamterene-HCTZ 37.5-25 MG] 0.5 tab PO DAILY [History] L.acidoph,Paracasei, B.lactis [Probiotic] 1 tab PO DAILY 01/10/18 [History] Ondansetron 4 mg PO Q6H PRN 01/10/18 [History] Acetaminophen [Acetaminophen Extra Strength] 500 mg PO QID 01/11/18 [History] Docusate Sodium 100 mg PO BEDTIME 01/11/18 [History] Lisinopril 10 mg PO BID #0 01/16/18 [Rx] Magnesium Oxide 400 mg PO BID #60 tablet 01/16/18 [Rx] Polyethylene Glycol 3350 [MiraLAX] 17 gm PO DAILY #30 packet 01/16/18 [Rx] Patient Handouts: Hypomagnesemia, Hypokalemia, Diabetes Mellitus and Sick Day Management, Community-Acquired Pneumonia, Adult, [id number] Referrals: Monalisa Duffy, SHUTTLE FITTING SUPERVISOR [Primary Care Provider] - - Discharge Summary/Plan Comment DC Time >30 min.: Yes (45 min) - General Info Date of Service: 01/16/18 Admission Dx/Problem (Free Text: Admission Diagnosis/Problem Admission Diagnosis/Problem Hypomagnesemia, mycoplasma + Doing well, coughing is minimal. Energy improved, appetite is good- nausea is resolved. Plans DC home today with daughter and with [facility] services. BG's 120-180' s the last 24 hours. Functional Status: Reports: Pain Controlled, Tolerating Diet, Ambulating, Urinating, Incentive Spirometry. Denies: New Symptoms - Review of Systems General: Reports: No Symptoms. Denies: Fever, Weakness (resolved) HEENT: Reports: No Symptoms Pulmonary: Reports: Cough (minimal and improved). Denies: Shortness of Breath, Wheezing Cardiovascular: Reports: No Symptoms Gastrointestinal: Reports: No Symptoms. Denies: Abdominal Pain, Diarrhea, Nausea, Vomiting Genitourinary: Reports: No Symptoms Musculoskeletal: Reports: No Symptoms Neurological: Reports: No Symptoms Psychiatric: Reports: No Symptoms - Patient Data Vitals - Most Recent: Last Vital Signs Temp 98.6 F 01/16/18 05:04 Pulse 84 01/16/18 05:04 Resp 12 01/16/18 05:04 BP 137/58 L 01/16/18 05:04 Pulse Ox 92 L 01/16/18 05:04 Weight - Most Recent: 150 lb 14.4 oz I&O - Last 24 hours: Intake & Output 01/15/18 01/16/18 01/16/18 22:59 06:59 14:59 Intake Total 450 Output Total 300 Balance 150 Lab Results - Last 24 hrs: Laboratory Results - last 24 hr 01/15/18 01/15/18 01/15/18 Range/Units 11:17 16:47 20:52 WBC (3.98-10.04) K/mm3 RBC (3.98-5.22) M/mm3 Hgb (11.2-15.7) gm/L Hct (34.1-44.9) % MCV (79.4-94.8) fl MCH (25.6-32.2) pg MCHC (32.2-35.5) g/dl RDW Std Deviation (36.4-46.3) fL Plt Count (182-369) K/mm3 MPV (9.4-12.3) fl Neut % (Auto) (34.0-71.1) % Lymph % (Auto) (19.3-51.7) % [place] % (Auto) (4.7-12.5) % Eos % (Auto) (0.7-5.8) Baso % (Auto) (0.1-1.2) % Neut # (Auto) (1.56-6.13) K/mm3 Lymph # (Auto) (1.18-3.74) K/mm3 [place] # (Auto) (0.24-0.36) K/mm3 Eos # (Auto) (0.04-0.36) K/mm3 Baso # (Auto) (0.01-0.08) K/mm3 Sodium (136-145) mEq/L Potassium (3.5-5.1) mEq/L Chloride (98-107) mEq/L Carbon Dioxide (21-32) mEq/L Anion Gap (5-15) BUN (7-18) mg/dL Creatinine (0.55-1.02) mg/dL Est Cr Clr Drug Dosing mL/min Estimated GFR (MDRD) (>60) mL/min BUN/Creatinine Ratio (14-18) Glucose (83-115) mg/dL POC Glucose 197 H 131 H 148 H (83-110) mg/dL Lactic Acid (0.4-2.0) mmol/L Calcium (8.5-10.1) mg/dL Magnesium (1.8-2.4) mg/dl C-Reactive Protein (<1.0) mg/dL 01/16/18 01/16/18 01/16/18 Range/Units 05:20 05:20 05:20 WBC 8.97 (3.98-10.04) K/mm3 RBC 4.28 (3.98-5.22) M/mm3 Hgb 12.9 (11.2-15.7) gm/L Hct 40.4 (34.1-44.9) % MCV 94.4 (79.4-94.8) fl MCH 30.1 (25.6-32.2) pg MCHC 31.9 L (32.2-35.5) g/dl RDW Std Deviation 42.4 (36.4-46.3) fL Plt Count 304 (182-369) K/mm3 MPV 9.8 (9.4-12.3) fl Neut % (Auto) 49.0 (34.0-71.1) % Lymph % (Auto) 32.7 (19.3-51.7) % [place] % (Auto) 10.7 (4.7-12.5) % Eos % (Auto) 6.4 H (0.7-5.8) Baso % (Auto) 0.9 (0.1-1.2) % Neut # (Auto) 4.40 (1.56-6.13) K/mm3 Lymph # (Auto) 2.93 (1.18-3.74) K/mm3 [place] # (Auto) 0.96 H (0.24-0.36) K/mm3 Eos # (Auto) 0.57 H (0.04-0.36) K/mm3 Baso # (Auto) 0.08 (0.01-0.08) K/mm3 Sodium 142 (136-145) mEq/L Potassium 3.8 (3.5-5.1) mEq/L Chloride 105 (98-107) mEq/L Carbon Dioxide 27 (21-32) mEq/L Anion Gap 13.8 (5-15) BUN 20 H (7-18) mg/dL Creatinine 1.0 (0.55-1.02) mg/dL Est Cr Clr Drug Dosing 32.73 mL/min Estimated GFR (MDRD) 53 (>60) mL/min BUN/Creatinine Ratio 20.0 H (14-18) Glucose 142 H (83-115) mg/dL POC Glucose (83-110) mg/dL Lactic Acid 1.7 (0.4-2.0) mmol/L Calcium 9.5 (8.5-10.1) mg/dL Magnesium 1.8 (1.8-2.4) mg/dl C-Reactive Protein < 0.2 (<1.0) mg/dL 01/16/18 Range/Units 06:32 WBC (3.98-10.04) K/mm3 RBC (3.98-5.22) M/mm3 Hgb (11.2-15.7) gm/L Hct (34.1-44.9) % MCV (79.4-94.8) fl MCH (25.6-32.2) pg MCHC (32.2-35.5) g/dl RDW Std Deviation (36.4-46.3) fL Plt Count (182-369) K/mm3 MPV (9.4-12.3) fl Neut % (Auto) (34.0-71.1) % Lymph % (Auto) (19.3-51.7) % [place] % (Auto) (4.7-12.5) % Eos % (Auto) (0.7-5.8) Baso % (Auto) (0.1-1.2) % Neut # (Auto) (1.56-6.13) K/mm3 Lymph # (Auto) (1.18-3.74) K/mm3 [place] # (Auto) (0.24-0.36) K/mm3 Eos # (Auto) (0.04-0.36) K/mm3 Baso # (Auto) (0.01-0.08) K/mm3 Sodium (136-145) mEq/L Potassium (3.5-5.1) mEq/L Chloride (98-107) mEq/L Carbon Dioxide (21-32) mEq/L Anion Gap (5-15) BUN (7-18) mg/dL Creatinine (0.55-1.02) mg/dL Est Cr Clr Drug Dosing mL/min Estimated GFR (MDRD) (>60) mL/min BUN/Creatinine Ratio (14-18) Glucose (83-115) mg/dL POC Glucose 128 H (83-110) mg/dL Lactic Acid (0.4-2.0) mmol/L Calcium (8.5-10.1) mg/dL Magnesium (1.8-2.4) mg/dl C-Reactive Protein (<1.0) mg/dL Med Orders - Current: Current Medications Acetaminophen (Tylenol) 650 mg PO Q6H PRN PRN Reason: Pain/Fever Hydrocodone Bitart/Acetaminophen ([place] 325-10 Mg) 1 tab PO Q4H PRN PRN Reason: Pain Last Admin: 01/15/18 11:06 Dose: 1 tab Hydrocodone Bitart/Acetaminophen ([place] 325-5 Mg) 1 tab PO BID@0800,1300 [facility] Last Admin: 01/16/18 08:29 Dose: 1 tab Hydrocodone Bitart/Acetaminophen ([place] 325-5 Mg) 1 tab PO BID@1800,2200 [facility] Last Admin: 01/15/18 21:00 Dose: 1 tab Aspirin (Halfprin) 81 mg PO DAILY [facility] Last Admin: 01/16/18 08:29 Dose: 81 mg Azithromycin (Zithromax) 250 mg PO Q24H [facility] Last Admin: 01/15/18 14:12 Dose: 250 mg Dextrose/Water (Dextrose 50% In Water) 50 ml IVPUSH ASDIRECTED PRN PRN Reason: Hypoglycemia Docusate Sodium (Colace) 100 mg PO DAILY [facility] Last Admin: 01/16/18 08:29 Dose: 100 mg Enoxaparin Sodium (Lovenox) 30 mg SUBCUT DAILY [facility] Last Admin: 01/16/18 08:30 Dose: 30 mg Hydralazine HCl (Apresoline) 20 mg IVPUSH Q6H PRN PRN Reason: Hypertension Last Admin: 01/14/18 18:27 Dose: 20 mg Insulin Aspart (Novolog) 0 unit SUBCUT QIDACANDBED [facility] PRN Reason: Protocol Last Admin: 01/16/18 07:49 Dose: Not Given Magnesium Oxide (Magnesium Oxide) 400 mg PO BID [facility] Last Admin: 01/16/18 08:29 Dose: 400 mg Ondansetron HCl (Zofran) 4 mg IVPUSH Q8H PRN PRN Reason: Nausea/Vomiting Last Admin: 01/11/18 17:20 Dose: 4 mg Ondansetron HCl (Zofran Odt) 4 mg PO Q6H PRN PRN Reason: Nausea/Vomiting Last Admin: 01/12/18 18:03 Dose: 4 mg Polyethylene Glycol (Miralax) 17 gm PO DAILY PRN PRN Reason: Constipation Last Admin: 01/15/18 08:14 Dose: 17 gm Saccharomyces Boulardii (Florastor) 250 mg PO DAILY [facility] Last Admin: 01/16/18 08:28 Dose: 250 mg Sertraline HCl (Zoloft) 75 mg PO DAILY [facility] Last Admin: 01/16/18 08:29 Dose: 75 mg Discontinued Medications Hydrocodone Bitart/Acetaminophen ([place] 325-5 Mg) 1 tab PO 0800,1300,1800,2200 [facility] Last Admin: 01/12/18 11:10 Dose: Not Given Docusate Sodium (Colace) 100 mg PO BEDTIME [facility] Docusate Sodium (Colace) 100 mg PO BEDTIME [facility] Magnesium Sulfate 2 gm/ Premix 50 mls @ 50 mls/hr IV ONETIME ONE Stop: 01/10/18 14:28 Last Admin: 01/10/18 13:42 Dose: 50 mls/hr Sodium Chloride (Normal Saline) 1,000 mls @ 500 mls/hr IV ONETIME ONE Stop: 01/10/18 15:28 Last Admin: 01/10/18 13:42 Dose: 500 mls/hr Sodium Chloride (Sodium Chloride 0.45%) 1,000 mls @ 150 mls/hr IV ASDIRECTED [facility] Last Admin: 01/11/18 13:23 Dose: 150 mls/hr Magnesium Sulfate 2 gm/ Premix 50 mls @ 25 mls/hr IV Q2H [facility] Stop: 01/11/18 17:59 Last Admin: 01/11/18 16:31 Dose: 25 mls/hr Sodium Chloride (Sodium Chloride 0.45%) 1,000 mls @ 50 mls/hr IV ASDIRECTED [facility] Last Admin: 01/12/18 07:39 Dose: 50 mls/hr Doxycycline Hyclate 100 mg/ (Sodium Chloride) 100 mls @ 100 mls/hr IV Q12HR [facility] Last Admin: 01/12/18 08:36 Dose: 100 mls/hr Magnesium Sulfate 2 gm/ Premix 50 mls @ 25 mls/hr IV ONETIME ONE Stop: 01/13/18 13:11 Last Admin: 01/13/18 11:53 Dose: 25 mls/hr Magnesium Sulfate 2 gm/ Premix 50 mls @ 25 mls/hr IV ONETIME ONE Stop: 01/14/18 18:06 Last Admin: 01/14/18 16:30 Dose: 25 mls/hr Lactobacillus Acidophilus La-5, Bifdobacterium 250 each PO DAILY [facility] Last Admin: 01/11/18 10:33 Dose: 250 each Potassium Chloride (Klor-Con M20) 40 meq PO BID [facility] Stop: 01/12/18 09:01 Last Admin: 01/12/18 08:35 Dose: 40 meq - Exam Quality Assessment: Reports: DVT Prophylaxis General: Reports: Alert, Oriented, Cooperative, No Acute Distress HEENT: Reports: Pupils Equal, EOMI, Mucous Membr. Moist/[place] Neck: Reports: Supple Lungs: Reports: Normal Respiratory Effort, Decreased Breath Sounds Cardiovascular: Reports: Regular Rate, Regular Rhythm GI/Abdominal Exam: Normal Bowel Sounds, Soft, Non-Tender (Female) Exam: Deferred Rectal (Female) Exam: Deferred Extremities: Normal Inspection, No Pedal Edema, Normal Capillary Refill Neurological: Reports: No New Focal Deficit Psy/Mental Status: Reports: Alert, Normal Affect, Normal Mood *Q Meaningful Use (DIS) - VTE *Q VTE Criteria *Q: - Stroke *Q Stroke Criteria *Q: - AMI *Q AMI Criteria *Q:
[2018-01-16 11:40] VITALS: BP 136/88
[2018-01-16] MEDS: Azithromycin 250 MG Tab PO SCH (11:46)
== END 2018-01-16 12:03 | disposition home health service (06) | DRG 195 ==
LOC: JD.ED 11:02 → JD.MS 15:32 → OBSVTOIN 01-11 15:31 → JD.MS 01-11 16:19
PROVIDERS: ADMIT Internal Medicine Cardiovascular Disease; ATTEND Internal Medicine Cardiovascular Disease
DX: E11.65 Type 2 diabetes mellitus with hyperglycemia (principal); R07.89 Other chest pain; J15.7 Pneumonia due to Mycoplasma pneumoniae; E83.42 Hypomagnesemia; E87.6 Hypokalemia; E86.0 Dehydration; R19.7 Diarrhea, unspecified; N17.9 Acute kidney failure, unspecified; I25.10 Atherosclerotic heart disease of native coronary artery without angina pectoris; I12.9 Hypertensive chronic kidney disease with stage 1 through stage 4 chronic kidney disease, or unspecified chronic kidney disease; K59.00 Constipation, unspecified; N18.9 Chronic kidney disease, unspecified; Z95.5 Presence of coronary angioplasty implant and graft; E78.5 Hyperlipidemia, unspecified; E11.9 Type 2 diabetes mellitus without complications; R32 Unspecified urinary incontinence; M19.90 Unspecified osteoarthritis, unspecified site; F32.9 Major depressive disorder, single episode, unspecified; Z79.82 Long term (current) use of aspirin; Z79.899 Other long term (current) drug therapy
CPT/HCPCS: 36415 ×2; 71045; 80048; 80053; 81001; 82962 ×3; 83605; 83735 ×2; 84443; 84484 ×2; 85025 ×2; 86140; 86738; 87804 ×2; 87899; 93005; 96361; 96365; 99285; A9270 ×5; J0360; J1815; J2405; J7030 ×3; J7040; 82272; 83036; 89055; 93010; 97110-GP; 97116-GP; 97161-GP; 97165-GO; 97530-GO; J1650; J3475

== ENCOUNTER 2020-01-11 11:10 | Emergency (ER) | payer MEDICARE, BC ==
--- NOTE | 2020-01-11 12:16 | EDM.PDOC ---
ED HPI GENERAL MEDICAL PROBLEM - General Chief Complaint: Gastrointestinal Problem Stated Complaint: DIARRHEA X 7 WEEKS NOW WEAK Time Seen by Provider: 01/11/20 11:14 Source of Information: Reports: Patient History Limitations: Reports: No Limitations - History of Present Illness INITIAL COMMENTS - FREE TEXT/NARRATIVE: Patient is an 84-year-old female brought in by her daughters with complaints of diarrhea for the last 7 weeks. Patient and her daughter state that she will go through cycles where she will have "pasty" stools followed by episodes of watery stools. She has seen her primary care provider, Akiko De Leon, and a number of occasions. Stool studies were completed as well as C. difficile testing. Her C. difficile was initially positive, however subsequent immunoassay test for C. 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 Stool cultures and Shiga toxins were also negative. Her daughter states there is a long list of foods that they have found that seem to make her diarrhea worse. They have eliminated these foods from her diet. They are stating at this point the only thing that she can eat without having worsening diarrhea is pasta, rice , potatoes, and chicken breast. Her daughters feel that she is becoming more weak. Patient is on a probiotic. She takes Imodium after each loose stool. She has never seen a senior sas programmer, and daughter state that she would "never be able to make it to [place] for an appointment ". She has not had a colonoscopy. Daughter state that they have been told that because of her age she would not be a candidate for colonoscopy. From their report, she has had a long history of chronic diarrhea alternating with constipation. They have been told that IBS is likely the cause of her symptoms. She is had no nausea, vomiting, or abdominal pain associated with this diarrhea. She is had no blood or mucus in her stool. States she does occasionally have some very mild cramping prior to have a bowel movement, however she would not describe it is painful. Lower Abdominal Pain Score (Numeric/FACES): 2 - Related Data Allergies Allergy/AdvReac Type Severity Reaction Status Date / Time No Known Allergies Allergy Verified 01/11/20 11:18 Home Meds: Home Meds Hydrocodone/Acetaminophen [Hydrocodone-Acetaminophen 5-325] 1 tab PO Q4H PRN 06/19 [History] Sertraline [Zoloft] 75 mg PO DAILY 07/14/14 [History] Triamterene/Hydrochlorothiazid [Triamterene-HCTZ 37.5-25 MG] 0.5 tab PO DAILY [History] Lisinopril 10 mg PO BID #0 01/16/18 [Rx] Magnesium Oxide 400 mg PO BID #60 tablet 01/16/18 [Rx] Past Medical History HEENT History: Reports: Cataract Cardiovascular History: Reports: CAD, Hypertension Other Cardiovascular History: stent 10 years ago Respiratory History: Reports: Asthma Gastrointestinal History: Reports: Chronic Constipation Other Gastrointestinal History: severe colitis Genitourinary History: Reports: Urinary Incontinence 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: Musculoskeletal History: Reports: Osteoarthritis Psychiatric History: Reports: Anxiety, Depression Endocrine/Metabolic History: Reports: Diabetes, Type II Dermatologic History: Reports: Other (See Below) Other Dermatologic History: itchy skin - Infectious Disease History Infectious Disease History: Reports: Other (See Below) Other Infectious Disease History: doesn't recall having any of these when listed off - Past Surgical History HEENT Surgical History: Reports: Cataract Surgery Cardiovascular Surgical History: Reports: Coronary Artery Stent Female Surgical History: Reports: Other (See Below) Oncologic Surgical History: Reports: None Social & Family History - Family History Family Medical History: Unobtainable HEENT: Reports: Cataract Cardiac: Reports: [place] Other Cardiac Family History: father Respiratory: Reports: None GI: Reports: None : Reports: None OBGYN: Reports: None Musculoskeletal: Reports: Arthritis Neurological: Reports: None Psychiatric: Reports: None Endocrine/Metabolic: Reports: Diabetes, type II Other Endocrine/Metabolic Family History: daughter Hematologic: Reports: None Immunologic: Reports: None Dermatologic: Reports: None Oncologic: Reports: Breast Other Oncologic Family History: sister - Tobacco Use Smoking Status *Q: Never Smoker - Caffeine Use Caffeine Use: Reports: Coffee - Living Situation & Occupation Living situation: Reports: , with Family (Daughter) Occupation: Retired ED ROS GENERAL - Review of Systems Review Of Systems: Comprehensive ROS is negative, except as noted in HPI. ED EXAM, GI/ABD - Physical Exam Exam: See Below Exam Limited By: No Limitations General Appearance: Alert, WD/WN, No Apparent Distress Throat/Mouth: Normal Inspection, Normal Lips, Normal Teeth, Normal Gums, Normal Oropharynx, Normal Voice, No Airway Compromise Respiratory/Chest: No Respiratory Distress, Lungs Clear, Normal Breath Sounds, No Accessory Muscle Use, Chest Non-Tender Cardiovascular: Normal Peripheral Pulses, Regular Rate, Rhythm, No Edema, No Gallop, No JVD, No Murmur, No Rub GI/Abdominal Exam: Normal Bowel Sounds, Soft, Non-Tender, No Organomegaly, No Distention, No Abnormal Bruit, No Mass, Pelvis Stable Extremities: Normal Inspection, Normal Range of Motion, Non-Tender, Normal Capillary Refill, No Pedal Edema Neurological: Alert, Oriented, CN II-XII Intact, Normal Cognition, Normal Gait, Normal Reflexes, No Motor/Sensory Deficits Psychiatric: Normal Affect, Normal Mood Skin Exam: Warm, Dry, Intact, Normal Color, No Rash Course - Vital Signs Last Recorded V/S: Last Vital Signs Temp 97.8 F 01/11/20 11:18 Pulse 61 01/11/20 14:46 Resp 18 01/11/20 11:18 BP 130/66 01/11/20 14:46 Pulse Ox 98 01/11/20 14:46 - Orders/Labs/Meds Labs: Laboratory Tests 01/11/20 01/11/20 01/11/20 Range/Units 12:07 12:07 13:15 WBC 8.55 (3.98-10.04) K/mm3 RBC 4.50 (3.98-5.22) M/mm3 Hgb 12.9 (11.2-15.7) gm/dl Hct 41.8 (34.1-44.9) % MCV 92.9 (79.4-94.8) fl MCH 28.7 (25.6-32.2) pg MCHC 30.9 L (32.2-35.5) g/dl RDW Std Deviation 46.1 (36.4-46.3) fL Plt Count 250 (182-369) K/mm3 MPV 9.9 (9.4-12.3) fl Neut % (Auto) 63.2 (34.0-71.1) % Lymph % (Auto) 23.5 (19.3-51.7) % [place] % (Auto) 7.7 (4.7-12.5) % Eos % (Auto) 5.0 (0.7-5.8) Baso % (Auto) 0.5 (0.1-1.2) % Neut # (Auto) 5.40 (1.56-6.13) K/mm3 Lymph # (Auto) 2.01 (1.18-3.74) K/mm3 [place] # (Auto) 0.66 H (0.24-0.36) K/mm3 Eos # (Auto) 0.43 H (0.04-0.36) K/mm3 Baso # (Auto) 0.04 (0.01-0.08) K/mm3 Sodium 140 (136-145) mEq/L Potassium 3.9 (3.5-5.1) mEq/L Chloride 105 (98-107) mEq/L Carbon Dioxide 28 (21-32) mEq/L Anion Gap 10.9 (5-15) BUN 15 (7-18) mg/dL Creatinine 1.4 H (0.55-1.02) mg/dL Est Cr Clr Drug Dosing 23.66 mL/min Estimated GFR (MDRD) 36 (>60) mL/min BUN/Creatinine Ratio 10.7 L (14-18) Glucose 160 H (83-115) mg/dL Calcium 9.1 (8.5-10.1) mg/dL Magnesium 2.2 (1.8-2.4) mg/dl Total Bilirubin 0.5 (0.2-1.0) mg/dL AST 15 (15-37) U/L ALT 16 (14-59) U/L Alkaline Phosphatase 75 (46-116) U/L C-Reactive Protein 2.1 H* (<1.0) mg/dL Total Protein 6.2 L (6.4-8.2) g/dl Albumin 3.1 L (3.4-5.0) g/dl Globulin 3.1 gm/dL Albumin/Globulin Ratio 1.0 (1-2) Urine Color Yellow (Yellow) Urine Appearance Clear (Clear) Urine pH 7.0 (5.0-8.0) Ur Specific [place] 1.025 (1.005-1.030) Urine Protein Negative (Negative) Urine Glucose (UA) Negative (Negative) Urine Ketones Negative (Negative) Urine Occult Blood Trace-intact H (Negative) Urine Nitrite Negative (Negative) Urine Bilirubin Negative (Negative) Urine Urobilinogen 0.2 (0.2-1.0) Ur Leukocyte Esterase Trace H (Negative) Urine RBC 0-5 (0-5) /hpf Urine WBC 0-5 (0-5) /hpf Ur Epithelial Cells 0-5 (0-5) /hpf Urine Bacteria Few (FEW) /hpf Urine Mucus Few (FEW) /hpf - Re-Assessments/Exams Free Text/Narrative Re-Assessment/Exam: 01/11/20 14:23 Patient's hematology was grossly unremarkable. Her WBCs as well as hemoglobin were normal. Electrolytes were all within normal limits. Urinalysis was negative for any infection. Creatinine is mildly elevated at 1.4, however this is patient's normal range. Discussed these findings with the patient's daughter. Unfortunate this time there is no indication that would qualify the patient for an admission to the hospital. Discussed foods that the patient may eat to help bulk up her stools and prevent diarrhea such as whole-grain fibers, bananas, and bland foods. Recommended that she avoid anything dairy, acidic, spicy, greasy, or fruit juices. She has been drinking Gatorade for hydration. Recommended that she continue to do this. Patient is currently taking magnesium twice daily which I feel may be exacerbating her diarrhea. I did recommend that he try stopping the magnesium supplements to see if that improves her symptoms. Her magnesium was normal today at 2.2. I did discuss that I would like her to call her primary care provider first thing Monday morning as it would be important to monitor her magnesium to ensure that it does not begin to drop. Daughter also inquired about the possibility of physical therapy to help build the patient's strength. I recommended that she also discuss this with the primary care provider on Monday. If anything should worsen over the weekend she was advised to not hesitate to return to the emergency department. Discharge instructions as documented. Departure - Departure Time of Disposition: 14:24 Disposition: Home, Self-Care 01 Condition: Fair Clinical Impression: Diarrhea Qualifiers: Diarrhea type: unspecified type Qualified Code(s): R19.7 - Diarrhea, unspecified - Discharge Information *PRESCRIPTION DRUG MONITORING PROGRAM REVIEWED*: No *COPY OF PRESCRIPTION DRUG MONITORING REPORT IN PATIENT OLIVIA: No Instructions: Diarrhea, Adult, Diet for Irritable Bowel Syndrome Referrals: Monalisa Duffy DRILLER MACHINE [Primary Care Provider] - Forms: ED Department Discharge Additional Instructions: You were seen in the emergency department today for chronic diarrhea. Your work -up included blood work as well as urinalysis. Your work-up was found to be all normal. Stool studies were done previously by the primary care provider and found to be normal as well. You are well hydrated, and your electrolytes are all within normal ranges. As we discussed, I would recommend that you try stopping your magnesium supplement to see if that improves your diarrhea symptoms as this can act as a laxative. Recommend that you maintain high-fiber diet which is inclusive of whole grains. Proteins are also important including lean chicken and eggs. Recommend that you continue to drink Gatorade to stay well-hydrated and maintain your electrolytes. There is an attached educational packet for foods that are nonirritating for irritable bowel syndrome. I would recommend that you contact your primary care provider first thing Monday morning to discuss today's occurrences. I feel that close monitoring of your magnesium levels is important if we find that stopping the magnesium does help your diarrhea. You may also discuss the possibility of physical therapy with the primary care provider. If anything should worsen over the weekend, please do not hesitate to return to the emergency department. Sepsis Event Note - Evaluation Sepsis Screening Result: No Definite Risk - Focused Exam Date Exam was Performed: 01/13/20 Time Exam was Performed: 20:18
[2020-01-11 14:47] VITALS: BP 130/66; PULSE 61
== END 2020-01-11 14:48 | disposition home or self-care (01) ==
LOC: JD.ED 11:10
DX: R19.7 Diarrhea, unspecified (principal); I25.10 Atherosclerotic heart disease of native coronary artery without angina pectoris; I10 Essential (primary) hypertension; J45.909 Unspecified asthma, uncomplicated; F41.9 Anxiety disorder, unspecified; F32.9 Major depressive disorder, single episode, unspecified; E11.9 Type 2 diabetes mellitus without complications; Z79.899 Other long term (current) drug therapy
CPT/HCPCS: 36415; 80053; 81001; 83735; 85025; 86140; 99284

== ENCOUNTER 2021-03-10 08:02 | Emergency (ER) | payer MEDICARE, BC ==
[2021-03-10] MEDS ORDERED: Sodium Chloride 0.9% 10 ML Syringe FLUSH PRN (08:17)
--- NOTE | 2021-03-10 08:25 | EDM.PDOC ---
ED HPI GENERAL MEDICAL PROBLEM - General Chief Complaint: General Stated Complaint: [facility] Time Seen by Provider: 03/10/21 08:06 Source of Information: Reports: Patient, EMS History Limitations: Reports: No Limitations - History of Present Illness INITIAL COMMENTS - FREE TEXT/NARRATIVE: The patient presents by [facility] for a fall. This happened right be fore arrival. She was coming out of the bathroom and he legs quit working and she fell backward. She does not think she hit her head. She is not on blood thinners. She has some neck pain. She has no fever, chills, cough, chest pain, shortness of breath, abdominal pain, arm or leg pain. She fell about a week ago and was incontinent of stool. She usually uses a walker but she was not using the walker this morning. She said her neck has been hurting for about a week. Onset: Sudden Duration: Minutes: Location: Reports: Neck Quality: Reports: Ache Severity: Moderate Improves with: Reports: Immobilization Worsens with: Reports: Movement Context: Reports: Trauma (fall) Associated Symptoms: Reports: No Other Symptoms - Related Data Allergies Allergy/AdvReac Type Severity Reaction Status Date / Time No Known Allergies Allergy Verified 03/10/21 08:10 Home Meds: Home Meds Hydrocodone/Acetaminophen [Hydrocodone-Acetaminophen 5-325] 1 tab PO Q4H PRN 07/14/14 [History] Sertraline [Zoloft] 75 mg PO DAILY 07/14/14 [History] Triamterene/Hydrochlorothiazid [Triamterene-HCTZ 37.5-25 MG] 0.5 tab PO DAILY 07/14/14 [History] Lisinopril 10 mg PO BID #0 01/16/18 [Rx] Magnesium Oxide 400 mg PO BID #60 tablet 01/16/18 [Rx] Past Medical History HEENT History: Reports: Cataract Cardiovascular History: Reports: CAD, Hypertension Other Cardiovascular History: stent 10 years ago Respiratory History: Reports: Asthma Gastrointestinal History: Reports: Chronic Constipation Other Gastrointestinal History: severe colitis Genitourinary History: Reports: Urinary Incontinence 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: Musculoskeletal History: Reports: Osteoarthritis Psychiatric History: Reports: Anxiety, Depression Endocrine/Metabolic History: Reports: Diabetes, Type II Dermatologic History: Reports: Other (See Below) Other Dermatologic History: itchy skin - Infectious Disease History Infectious Disease History: Reports: Other (See Below) Other Infectious Disease History: doesn't recall having any of these when listed off - Past Surgical History HEENT Surgical History: Reports: Cataract Surgery Cardiovascular Surgical History: Reports: Coronary Artery Stent Female Surgical History: Reports: Other (See Below) Musculoskeletal Surgical History: Reports: None Oncologic Surgical History: Reports: None Dermatological Surgical History: Reports: None Social & Family History - Family History Family Medical History: Unobtainable HEENT: Reports: Cataract Cardiac: Reports: [place] Other Cardiac Family History: father Respiratory: Reports: None GI: Reports: None : Reports: None OBGYN: Reports: None Musculoskeletal: Reports: Arthritis Neurological: Reports: None Psychiatric: Reports: None Endocrine/Metabolic: Reports: Diabetes, type II Other Endocrine/Metabolic Family History: daughter Hematologic: Reports: None Immunologic: Reports: None Dermatologic: Reports: None Oncologic: Reports: Breast Other Oncologic Family History: sister - Tobacco Use Tobacco Use Status *Q: Never Tobacco User - Caffeine Use Caffeine Use: Reports: Coffee - Recreational Drug Use Recreational Drug Use: No - Living Situation & Occupation Living situation: Reports: , with Family (Daughter) Occupation: Retired ED ROS GENERAL - Review of Systems Review Of Systems: See Below Constitutional: Reports: No Symptoms HEENT: Reports: No Symptoms Respiratory: Reports: No Symptoms Cardiovascular: Reports: No Symptoms Endocrine: Reports: No Symptoms GI/Abdominal: Reports: No Symptoms : Reports: No Symptoms Musculoskeletal: Reports: Neck Pain ED EXAM, GENERAL - Physical Exam Exam: See Below Exam Limited By: No Limitations General Appearance: Alert, No Apparent Distress Ears: Normal External Exam Nose: Normal Inspection Head: Atraumatic, Normocephalic Neck: Other (No pain with palpation. The pain is worse with laying her head down. When her head is up it does not hurt.) #1 Interpretation EKG Date: 03/10/21 Time: 08:21 Rhythm: NSR Rate (Beats/Min): 89 [place]: LAD-Left [place] Deviation P-Wave: Present QRS: Normal ST-T: Normal QT: Normal EKG Interpretation Comments: Q waves in the anterior and inferior leads Course - Vital Signs Last Recorded V/S: Last Vital Signs Temp 97.0 F 03/10/21 13:15 Pulse 90 03/10/21 13:15 Resp 18 03/10/21 13:15 BP 135/79 03/10/21 13:15 Pulse Ox 97 03/10/21 13:15 - Orders/Labs/Meds Orders: Active Orders 24 hr Category Date Time Status Sodium Chloride 0.9% [Saline Flush] Med 03/10/21 08:17 Active 10 ml FLUSH ASDIRECTED PRN Peripheral IV Insertion Adult [OM.PC] Stat Oth 03/10/21 08:17 Ordered Medication Orders Sodium Chloride (Sodium Chloride 0.9% 10 Ml Syringe) 10 ml FLUSH ASDIRECTED PRN PRN Reason: Keep Vein Open Last Admin: 03/10/21 08:31 Dose: 10 ml Documented by: TEENA Labs: Laboratory Tests 03/10/21 03/10/21 03/10/21 Range/Units 08:10 08:10 10:57 WBC 15.03 H (3.98-10.04) K/mm3 RBC 4.21 (3.98-5.22) M/mm3 Hgb 10.9 L (11.2-15.7) gm/dl Hct 36.4 (34.1-44.9) % MCV 86.5 (79.4-94.8) fl MCH 25.9 (25.6-32.2) pg MCHC 29.9 L (32.2-35.5) g/dl RDW Std Deviation 47.0 H (36.4-46.3) fL Plt Count 421 H (182-369) K/mm3 MPV 9.9 (9.4-12.3) fl Neut % (Auto) 79.0 H (34.0-71.1) % Lymph % (Auto) 12.7 L (19.3-51.7) % [place] % (Auto) 6.9 (4.7-12.5) % Eos % (Auto) 0.8 (0.7-5.8) Baso % (Auto) 0.3 (0.1-1.2) % Neut # (Auto) 11.88 H (1.56-6.13) K/mm3 Lymph # (Auto) 1.91 (1.18-3.74) K/mm3 [place] # (Auto) 1.03 H (0.24-0.36) K/mm3 Eos # (Auto) 0.12 (0.04-0.36) K/mm3 Baso # (Auto) 0.04 (0.01-0.08) K/mm3 Manual Slide Review Abnormal smear Sodium 141 (136-145) mEq/L Potassium 4.0 (3.5-5.1) mEq/L Chloride 101 (98-107) mEq/L Carbon Dioxide 27 (21-32) mEq/L Anion Gap 17.0 H (5-15) BUN 31 H (7-18) mg/dL Creatinine 1.4 H (0.55-1.02) mg/dL Est Cr Clr Drug Dosing 24.30 mL/min Estimated GFR (MDRD) 36 (>60) mL/min BUN/Creatinine Ratio 22.1 H (14-18) Glucose 230 H (83-115) mg/dL Calcium 9.5 (8.5-10.1) mg/dL Total Bilirubin 0.7 (0.2-1.0) mg/dL AST 13 L (15-37) U/L ALT 15 (14-59) U/L Alkaline Phosphatase 108 (46-116) U/L Troponin I < 0.017 (0.00-0.056) ng/mL Total Protein 6.9 (6.4-8.2) g/dl Albumin 2.4 L (3.4-5.0) g/dl Globulin 4.5 gm/dL Albumin/Globulin Ratio 0.5 L (1-2) Urine Color Yellow (Yellow) Urine Appearance Clear (Clear) Urine pH 8.5 H (5.0-8.0) Ur Specific [place] 1.020 (1.005-1.030) Urine Protein Negative (Negative) Urine Glucose (UA) Negative (Negative) Urine Ketones Negative (Negative) Urine Occult Blood Trace-intact H (Negative) Urine Nitrite Negative (Negative) Urine Bilirubin Negative (Negative) Urine Urobilinogen 0.2 (0.2-1.0) Ur Leukocyte Esterase Negative (Negative) Urine RBC 10-20 H (0-5) /hpf Urine WBC 0-5 (0-5) /hpf Ur Squamous Epith Cells 5-10 H (0-5) /hpf Urine Bacteria Moderate H (FEW) /hpf Urine Mucus Not seen (FEW) /hpf Meds: Medications Generic Name Dose Route Start Last Admin Trade Name Freq PRN Reason Stop Dose Admin Sodium Chloride 10 ml 03/10/21 08:17 03/10/21 08:31 Sodium Chloride 0.9% 10 Ml Syringe FLUSH 10 ml ASDIRECTED PRN Administration Keep Vein Open - Re-Assessments/Exams Free Text/Narrative Re-Assessment/Exam: 03/10/21 08:24 I ordered an IV saline lock, EKG, CT of her head and cervical spine, labs and UA. 03/10/21 08:26 Her EKG shows a NSR with no acute changes. 03/10/21 11:21 Her WBC was elevated at 15.03. Her Hgb is low at 10.9. Her platelets were elevated at 421. Her anion gap is elevated at 17. Her creatinine is elevated at 1.4. Her glucose is elevated at 230. Her troponin is negative. The CT of her head shows nothing acute is appreciated on noncontrast head CT exam. The CT of her cervical spine shows scattered degenerative change within the cervical spine. No acute fracture or subluxation is seen. 1cm nodule partially visualized within the upper chest which is not seen on old chest x- ray. Difficult to exclude lung cancer. Chest CT is recommended to further evaluate if patient wishes. I ordered a CT of her chest and it shows multiple nodules within the chest. Lucent lesion within approximately T8 vertebral body. 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 Other incidental findings as noted above. I am waiting on a UA. 03/10/21 12:01 The UA shows no UTI. I called Monalisa Duffy about the patient. She was suspicious about something going on a few days ago when she say her in clinic. She has a CT of her abdomen and pelvis ordered for tomorrow at 9:30am. I informed the patient and he daughter of the plan. Her daughter says she cannot walk though. I had my nurse get her up and walk. She walked with a walker okay. Her daughter still has concerns. The other daughter that lives with her mother is having surgery soon and can not care for her mom. I will have Chani our social services director come see the patient and talk with her and the family. 03/10/21 12:46 Chani came to see them and they were not open to assisted living or prison. We will do home health services. I will discharge her home. 03/10/21 14:20 Face to face meeting with patient and or family. Patient has the following diagnosis; falls, weakness, CT chest shows multiple nodules within chest, also see ER report for additional diagnosis. Patient needs Home Health Care nursing services for skilled assessment, vital signs, disease, education/management, pain management, and medication education, physical therapy for gait training, transfer training, safety education, neuromuscular reeducation, therapeutic exercise, caregiver training, balance training, equipment recommendations. Occupational therapy for activities of daily living, balance training, functional mobility training, safety education, therapeutic activities, therapeutic exercises. REVIEWER SALES for assistance with ADL's. Patient is currently homebound related decreased activity tolerance, decreased level of endurance, and need for FWW use. Ermias will be followed by her primary provider CRAIG Dubois. Departure - Departure Time of Disposition: 12:50 Disposition: Home, Self-Care 01 Condition: Good Clinical Impression: Generalized weakness, Pulmonary nodule, Lesion of bone of thoracic spine Fall Qualifiers: Encounter type: initial encounter Qualified Code(s): W19.XXXA - Unspecified fall, initial encounter - Discharge Information *PRESCRIPTION DRUG MONITORING PROGRAM REVIEWED*: Not Applicable *COPY OF PRESCRIPTION DRUG MONITORING REPORT IN PATIENT OLIVIA: Not Applicable Instructions: Weakness, [id number] Referrals: Monalisa Duffy, INFANT CHILDCARE PROVIDER [Primary Care Provider] - 1 Week Forms: ED Department Discharge Additional Instructions: You have a CT of your abdomen scheduled for tomorrow at 9:30am. Follow up with Monalisa Duffy within a week. Home health will be doing more care for you at home. Please return if you are worse. Sepsis Event Note (ED) - Evaluation Sepsis Screening Result: No Definite Risk - Focused Exam Vital Signs: Vital Signs Temp Pulse Resp BP Pulse Ox 03/10/21 13:15 97.0 F 90 18 135/79 97 03/10/21 08:06 97.3 F 9 L 18 129/73 97 - My Orders Last 24 Hours: My Active Orders 03/10/21 08:17 Sodium Chloride 0.9% [Saline Flush] 10 ml FLUSH ASDIRECTED PRN Peripheral IV Insertion Adult [OM.PC] Stat - Assessment/Plan Last 24 Hours: My Active Orders 03/10/21 08:17 Sodium Chloride 0.9% [Saline Flush] 10 ml FLUSH ASDIRECTED PRN Peripheral IV Insertion Adult [OM.PC] Stat
--- NOTE | 2021-03-10 09:02 | CT ---
Head CT Technique: Multiple axial sections through the brain were obtained. Reconstructed coronal and sagittal images were obtained. Comparison: Prior head CT study of 08/12/10, previous MRI brain of 09/17/14. Findings: Ventricles along with basal cisterns and sulci over the convexities are mildly prominent. Diminished density is noted within the periventricular white matter which is compatible with small vessel ischemic demyelination change. No other abnormal parenchymal densities are seen. No evidence of intracranial hemorrhage. No midline shift or mass-effect is appreciated. Bone window settings were reviewed which show no acute abnormality within the visualized paranasal sinuses or mastoid sinuses. No acute calvarial abnormality is appreciated. Minimal atherosclerotic calcification is noted within the vertebral vessels and carotid siphon. Impression: 1. Senescent change as noted above. 2. Nothing acute is appreciated on noncontrast head CT exam. Diagnostic code #2
--- NOTE | 2021-03-10 09:09 | CT ---
CT cervical spine Technique: Multiple axial sections were obtained from above C1 inferiorly to the top of T2. Reconstructed coronal and sagittal images were obtained. Comparison: Prior CT cervical spine study of 08/12/10. Findings: Degenerative change is noted between the dens and anterior arch of C1. Scattered areas of mild disc space narrowing are seen. Scattered degenerative change is noted within the apophyseal joints. Slight areas of scattered neural foraminal stenosis are seen. No acute fracture or abnormal subluxation is appreciated. Nodule is partially seen within the right upper lung measuring up to 1.0 cm. This finding is not visualized on previous chest x-ray 01/10/18. Impression: 1. Scattered degenerative change within the cervical spine. No acute fracture or subluxation is seen. 2. 1 cm nodule partially visualized within the upper chest which is not seen on old chest x-ray. Difficult to exclude lung cancer. Chest CT is recommended to further evaluate if patient wishes. Diagnostic code #9
--- NOTE | 2021-03-10 10:19 | CT ---
CT chest Technique: Multiple axial sections through the chest were obtained. Intravenous contrast was not utilized. Reconstructed coronal and sagittal images were obtained. Findings: Multiple nodules are seen within both lungs involving upper and lower lungs. Largest nodule measures around 1.5 cm. Findings are most likely due to multiple metastatic nodules. Slight interstitial change is seen within the right lung base most likely representing mild fibrosis. Minimal interstitial change is seen within the left lung base also likely due to mild fibrosis. No acute parenchymal change is appreciated. Atherosclerotic calcification is noted within the thoracic aorta without aneurysm. Mediastinum and hilar regions show no adenopathy. No axillary adenopathy is seen. No pericardial thickening is seen. Coronary artery calcification is noted. Bone window settings were reviewed which show scattered degenerative changes within the spine. Focal lucency is noted within the approximate T8 vertebral body which could represent a focal metastatic bone lesion. Impression: 1. Multiple nodules within the chest. Lucent lesion within approximately T8 vertebral body. 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 2. Other incidental findings as noted above. Diagnostic code #9
[2021-03-10 13:37] VITALS: BP 135/79; PULSE 90
== END 2021-03-10 13:15 | disposition home or self-care (01) ==
LOC: JD.ED 08:02
DX: M89.9 Disorder of bone, unspecified (principal); R53.1 Weakness; R91.1 Solitary pulmonary nodule; I25.10 Atherosclerotic heart disease of native coronary artery without angina pectoris; I10 Essential (primary) hypertension; E11.9 Type 2 diabetes mellitus without complications; Z79.899 Other long term (current) drug therapy; W18.39XA Other fall on same level, initial encounter
CPT/HCPCS: 36415; 70450; 70450-26; 71250; 71250-26; 72125; 72125-26; 80053; 81001; 84484; 85025; 93005; 99284-25

== ENCOUNTER 2021-03-10 14:26 | Inpatient (IN) | payer MEDICARE, BC ==
[2021-03-10] MEDS ORDERED: Sodium Chloride 0.9% 10 ML Syringe FLUSH PRN (14:41)
--- NOTE | 2021-03-10 14:50 | EDM.PDOC ---
ED HPI GENERAL MEDICAL PROBLEM - General Chief Complaint: General Stated Complaint: [facility] Time Seen by Provider: 03/10/21 14:31 Source of Information: Reports: Patient, EMS, Family History Limitations: Reports: No Limitations - History of Present Illness INITIAL COMMENTS - FREE TEXT/NARRATIVE: The patient returns to the ER by [facility] for a fall. She was here earlier this morning for a fall. She was walking out of the bathroom and he legs gave out and she fell. She did not hit her head. She did have neck pain. I did a CT of her head and cervical spine. There were no acute injuries, but there was a nodule in her lungs. Radiologist suggested a CT of her chest be done. I ordered that and it showed multiple nodules and a lesion at T8. Her l abs showed an elevated WBC and her urine looked good. I talked with her provider DYLAN Isaacs and she has a CT of her abdomen and pelvis scheduled for tomorrow at 9:30. She was suspicious there was something going on with the patient. I let the patient and family know the plan and the daughter said the patient could not walk. I had my nurse get her up with a walker and she did walk but she was weak. I had my social worker palliative care Chani come talk to the patient and family about help at home, assisted living or senior care. The did not want assisted living or senior care but they were up for help at home. That order was put in. The patient went home with her daughter. She went home and went to the bathroom. She fell coming out of the bathroom. Her legs gave out. She did not hit her head or hurt her neck. She has no chest pain, fever, chills, cough, abdominal pain, nausea or vomiting. Onset: Sudden Duration: Minutes: Improves with: Reports: None Worsens with: Reports: None Associated Symptoms: Reports: No Other Symptoms - Related Data Allergies Allergy/AdvReac Type Severity Reaction Status Date / Time No Known Allergies Allergy Verified 03/10/21 08:10 Home Meds: Home Meds Hydrocodone/Acetaminophen [Hydrocodone-Acetaminophen 5-325] 1 tab PO Q4H PRN 07/14/14 [History] Sertraline [Zoloft] 75 mg PO DAILY 07/14/14 [History] Triamterene/Hydrochlorothiazid [Triamterene-HCTZ 37.5-25 MG] 0.5 tab PO DAILY 07/14/14 [History] Lisinopril 10 mg PO BID #0 01/16/18 [Rx] Magnesium Oxide 400 mg PO BID #60 tablet 01/16/18 [Rx] Acetaminophen 0 mg PO BEDTIME 03/10/21 [History] Aspirin [Aspirin EC] 81 mg PO DAILY 03/10/21 [History] Bacillus Coagulans [Probiotic] 1 tab PO DAILY 03/10/21 [History] Magnesium Oxide [Magnesium] 200 mg PO 1200 03/10/21 [History] Peppermint Oil [Ibgard] 2 tab PO DAILY 03/10/21 [History] Past Medical History HEENT History: Reports: Cataract Cardiovascular History: Reports: CAD, Hypertension Other Cardiovascular History: stent 10 years ago Respiratory History: Reports: Asthma Gastrointestinal History: Reports: Chronic Constipation Other Gastrointestinal History: severe colitis Genitourinary History: Reports: Urinary Incontinence 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 Dermatologic History: Reports: Other (See Below) Other Dermatologic History: itchy skin - Infectious Disease History Infectious Disease History: Reports: Other (See Below) Other Infectious Disease History: doesn't recall having any of these when listed off - Past Surgical History HEENT Surgical History: Reports: Cataract Surgery Cardiovascular Surgical History: Reports: Coronary Artery Stent Female Surgical History: Reports: Other (See Below) Social & Family History - Family History Family Medical History: Unobtainable HEENT: Reports: Cataract Cardiac: Reports: [place] Other Cardiac Family History: father Respiratory: Reports: None GI: Reports: None : Reports: None OBGYN: Reports: None Musculoskeletal: Reports: Arthritis Neurological: Reports: None Psychiatric: Reports: None Endocrine/Metabolic: Reports: Diabetes, type II Other Endocrine/Metabolic Family History: daughter Hematologic: Reports: None Immunologic: Reports: None Dermatologic: Reports: None Oncologic: Reports: Breast Other Oncologic Family History: sister - Tobacco Use Tobacco Use Status *Q: Never Tobacco User Second Hand Smoke Exposure: No - Caffeine Use Caffeine Use: Reports: Coffee - Recreational Drug Use Recreational Drug Use: No - Living Situation & Occupation Living situation: Reports: , with Family (Daughter) Occupation: Retired ED ROS GENERAL - Review of Systems Review Of Systems: See Below Constitutional: Reports: No Symptoms HEENT: Reports: No Symptoms Respiratory: Reports: No Symptoms Cardiovascular: Reports: No Symptoms Endocrine: Reports: No Symptoms GI/Abdominal: Reports: No Symptoms : Reports: No Symptoms Musculoskeletal: Reports: No Symptoms ED EXAM, GENERAL - Physical Exam Exam: See Below Exam Limited By: No Limitations General Appearance: Alert, No Apparent Distress Ears: Normal External Exam Nose: Normal Inspection Head: Atraumatic, Normocephalic Neck: Normal Inspection Respiratory/Chest: No Respiratory Distress, Lungs Clear, Normal Breath Sounds Cardiovascular: Regular Rate, Rhythm, No Edema, No Murmur GI/Abdominal: Soft, Non-Tender, No Organomegaly, No Mass Back Exam: Normal Inspection Extremities: Normal Inspection Neurological: Alert, Oriented, No Motor/Sensory Deficits Course - Vital Signs Last Recorded V/S: Last Vital Signs Temp 97.6 F 03/10/21 14:30 Pulse 100 03/10/21 14:30 Resp 16 03/10/21 14:30 BP 110/79 03/10/21 14:30 Pulse Ox 98 03/10/21 14:30 - Orders/Labs/Meds Orders: Active Orders 24 hr Category Date Time Status Patient Status [ADT] Routine ADT 03/10/21 15:57 Active Antiembolic Devices [RC] PER UNIT ROUTINE Care 03/10/21 16:00 Active Height and Weight [RC] UPON Care 03/10/21 15:56 Active Notify Provider Vital Signs [RC] ASDIRECTED Care 03/10/21 15:58 Active Oxygen Therapy [RC] PRN Care 03/10/21 15:57 Active Peripheral IV Care [RC] . DIRECTED Care 03/10/21 14:41 Active RT Aerosol Therapy [RC] ASDIRECTED Care 03/10/21 16:00 Active Up With Assistance [RC] ASDIRECTED Care 03/10/21 15:56 Active VTE/DVT Education [RC] PER UNIT ROUTINE Care 03/10/21 15:57 Active Vital Signs [RC] Q4H Care 03/10/21 15:57 Active OT Evaluation and Treatment [CONS] Routine Cons 03/10/21 15:56 Active PT Evaluation and Treatment [CONS] Routine Cons 03/10/21 15:56 Active Regular Diet [DIET] Diet 03/10/21 Dinner Active BASIC METABOLIC PANEL,BMP [CHEM] AM Lab 03/11/21 05:11 Ordered CBC WITH AUTO DIFF [HEME] AM Lab 03/11/21 05:11 Ordered Acetaminophen [TylenoL] Med 03/10/21 15:56 Active 650 mg PO Q4H PRN Acetaminophen/oxyCODONE [Percocet 325-5 MG] Med 03/10/21 15:56 Active 1 tab PO Q4H PRN Albuterol/Ipratropium [DuoNeb 3.0-0.5 MG/3 ML] Med 03/10/21 15:56 Active 3 ml NEB Q4H PRN Docusate Sodium [Colace] Med 03/10/21 15:56 Active 100 mg PO BID PRN Morphine Med 03/10/21 15:56 Active 2 mg IVPUSH Q2H PRN Ondansetron [Zofran ODT] Med 03/10/21 15:56 Active 4 mg PO Q4H PRN Sodium Chloride 0.9% [Saline Flush] Med 03/10/21 14:41 Active 10 ml FLUSH ASDIRECTED PRN Temazepam [Restoril] Med 03/10/21 21:00 Active 7.5 mg PO BEDTIME PRN Peripheral IV Insertion Adult [OM.PC] Routine Oth 03/10/21 14:41 Ordered Sequential Compression Device [OM.PC] Per Unit Routine Oth 03/10/21 15:58 Ordered Resuscitation Status Routine Resus Stat 03/10/21 15:56 Ordered Medication Orders Acetaminophen (Acetaminophen 325 Mg Tab) 650 mg PO Q4H PRN PRN Reason: Pain (Mild 1-3)/fever Albuterol/Ipratropium (Albuterol/Ipratropium 3.0-0.5 Mg/3 Ml Neb Soln) 3 ml NEB Q4H PRN PRN Reason: Shortness Of Breath/wheezing Aspirin (Aspirin 81 Mg Tab.Ec) 81 mg PO DAILY [facility] Docusate Sodium (Docusate Sodium 100 Mg Cap) 100 mg PO BID PRN PRN Reason: Constipation Hydralazine HCl (Hydralazine 20 Mg/Ml Sdv) 10 mg IVPUSH Q4H PRN PRN Reason: Hypertension Insulin Human Lispro (Insulin Lispro 100 Unit/Ml 10 Ml Vial) 0 unit SUBCUT QIDACANDBED OBI; Protocol Lisinopril (Lisinopril 10 Mg Tab) 10 mg PO BID [facility] Magnesium Oxide (Magnesium Oxide 400 Mg Tab) 400 mg PO BID [facility] Morphine Sulfate (Morphine 2 Mg/Ml Syringe) 2 mg IVPUSH Q2H PRN PRN Reason: Pain (severe 7-10) Stop: 03/11/21 15:59 Non-Formulary Medication (Hctz/Triamterene) 0.5 tab PO DAILY [facility] Ondansetron HCl (Ondansetron 4 Mg Tab.Dis) 4 mg PO Q4H PRN PRN Reason: nausea, able to take PO Oxycodone/Acetaminophen (Acetaminophen/Oxycodone 325-5 Mg Tab) 1 tab PO Q4H PRN PRN Reason: Pain (moderate 4-6) Saccharomyces Boulardii (Saccharomyces Boulardii (Probiotic) 250 Mg Cap) 250 mg PO DAILY [facility] Sertraline HCl (Sertraline 50 Mg Tab) 75 mg PO DAILY [facility] Sodium Chloride (Sodium Chloride 0.9% 10 Ml Syringe) 10 ml FLUSH ASDIRECTED PRN PRN Reason: Keep Vein Open Last Admin: 03/10/21 14:56 Dose: 10 ml Documented by: TEENA Temazepam (Temazepam 7.5 Mg Cap) 7.5 mg PO BEDTIME PRN PRN Reason: Sleep Labs: Laboratory Tests 03/10/21 Range/Units 14:50 SARS-CoV-2 RNA (VICKIE) Negative (NEGATIVE) Meds: Medications Generic Name Dose Route Start Last Admin Trade Name Freq PRN Reason Stop Dose Admin Acetaminophen 650 mg 03/10/21 15:56 Acetaminophen 325 Mg Tab PO Q4H PRN Pain (Mild 1-3)/fever Albuterol/Ipratropium 3 ml 03/10/21 15:56 Albuterol/Ipratropium 3.0-0.5 Mg/3 Ml Neb Soln NEB Q4H PRN Shortness Of Breath/wheezing Aspirin 81 mg 03/11/21 09:00 Aspirin 81 Mg Tab.Ec PO DAILY [facility] Docusate Sodium 100 mg 03/10/21 15:56 Docusate Sodium 100 Mg Cap PO BID PRN Constipation Hydralazine HCl 10 mg 03/10/21 16:14 Hydralazine 20 Mg/Ml Sdv IVPUSH Q4H PRN Hypertension Insulin Human Lispro 0 unit 03/10/21 17:00 Insulin Lispro 100 Unit/Ml 10 Ml Vial SUBCUT QIDACANDBED [facility] Protocol Lisinopril 10 mg 03/10/21 21:00 Lisinopril 10 Mg Tab PO BID [facility] Magnesium Oxide 400 mg 03/10/21 21:00 Magnesium Oxide 400 Mg Tab PO BID [facility] Morphine Sulfate 2 mg 03/10/21 15:56 Morphine 2 Mg/Ml Syringe IVPUSH 03/11/21 15:59 Q2H PRN Pain (severe 7-10) Non-Formulary Medication 0.5 tab 03/11/21 09:00 Hctz/Triamterene PO DAILY [facility] Ondansetron HCl 4 mg 03/10/21 15:56 Ondansetron 4 Mg Tab.Dis PO Q4H PRN nausea, able to take PO Oxycodone/Acetaminophen 1 tab 03/10/21 15:56 Acetaminophen/Oxycodone 325-5 Mg Tab PO Q4H PRN Pain (moderate 4-6) Saccharomyces Boulardii 250 mg 03/11/21 09:00 Saccharomyces Boulardii (Probiotic) 250 Mg Cap PO DAILY [facility] Sertraline HCl 75 mg 03/11/21 09:00 Sertraline 50 Mg Tab PO DAILY [facility] Sodium Chloride 10 ml 03/10/21 14:41 03/10/21 14:56 Sodium Chloride 0.9% 10 Ml Syringe FLUSH 10 ml ASDIRECTED PRN Administration Keep Vein Open Temazepam 7.5 mg 03/10/21 21:00 Temazepam 7.5 Mg Cap PO BEDTIME PRN Sleep - Re-Assessments/Exams Free Text/Narrative Re-Assessment/Exam: 03/10/21 14:51 I ordered an IV saline lock and a COVID test. I called Dr Omalley with the hospitalist program and he will come see the patient. 03/10/21 16:47 The COVID [address] Omalley came to see the patient and he admitted her. Departure - Departure Time of Disposition: 16:50 Disposition: Refer to Observation Condition: Good Clinical Impression: Pulmonary nodule, Generalized weakness Fall Qualifiers: Encounter type: initial encounter Qualified Code(s): W19.XXXA - Unspecified fall, initial encounter Failure to thrive Qualifiers: Failure to thrive age range: in adult Qualified Code(s): R62.7 - Adult failure to thrive - Discharge Information Sepsis Event Note (ED) - Evaluation Sepsis Screening Result: No Definite Risk - Focused Exam Vital Signs: Vital Signs Temp Pulse Resp BP Pulse Ox 03/10/21 14:30 97.6 F 100 16 110/79 98 - My Orders Last 24 Hours: My Active Orders 03/10/21 14:41 Peripheral IV Care [RC] . DIRECTED Sodium Chloride 0.9% [Saline Flush] 10 ml FLUSH ASDIRECTED PRN Peripheral IV Insertion Adult [OM.PC] Routine - Assessment/Plan Last 24 Hours: My Active Orders 03/10/21 14:41 Peripheral IV Care [RC] . DIRECTED Sodium Chloride 0.9% [Saline Flush] 10 ml FLUSH ASDIRECTED PRN Peripheral IV Insertion Adult [OM.PC] Routine
--- NOTE | 2021-03-10 15:42 | PCM.HP.2 ---
H&P History of Present Illness - General Date of Service: 03/10/21 - History of Present Illness Initial Comments - Free Text/Narative: Patient is a 85-year-old female who initially presented to the emergency department earlier this morning after suffering a fall at home. Patient was reportedly walking out of her bathroom when her legs gave out and she fell. The patient did not have any loss of consciousness however she did have some neck pain after the fall however she reported that she did not hit her head. In the emergency department a CT scan brain and C-spine was completed with no acute injuries however there was a incidental finding of a nodule in her lung. Per r adiology it was suggested to obtain a CT of her chest. A CT of the chest was completed which showed multiple nodules and a possible lytic lesion at T8. The emergency room physician did speak with the patient's outpatient provider who wanted to obtain a CT abdomen and pelvis tomorrow as an outpatient. The patient was recommended for discharge. Family had concerns about the patient being able to ambulate. The nurse in the emergency department had the patient get up with a walker and she did fairly well and was discharged home with home health. Social work had visited with the patient to talk about home health assisted living or placement in a assisted. Patient declined assisted living or assisted placement. Patient was subsequently discharged home with her daughter. At home the patient reportedly went to the bathroom however her legs got weak and she fell once again. Patient denied her head did not have any loss of consciousness. She returned back to the emergency department via ambulance. - Related Data Allergies/Adverse Reactions: Allergies Allergy/AdvReac Type Severity Reaction Status Date / Time No Known Allergies Allergy Verified 03/10/21 08:10 Home Medications: Home Meds Hydrocodone/Acetaminophen [Hydrocodone-Acetaminophen 5-325] 1 tab PO Q4H PRN 07/14/14 [History] Sertraline [Zoloft] 75 mg PO DAILY 07/14/14 [History] Triamterene/Hydrochlorothiazid [Triamterene-HCTZ 37.5-25 MG] 0.5 tab PO DAILY 07/14/14 [History] Lisinopril 10 mg PO BID #0 01/16/18 [Rx] Magnesium Oxide 400 mg PO BID #60 tablet 01/16/18 [Rx] Acetaminophen 0 mg PO BEDTIME 03/10/21 [History] Aspirin [Aspirin EC] 81 mg PO DAILY 03/10/21 [History] Bacillus Coagulans [Probiotic] 1 tab PO DAILY 03/10/21 [History] Magnesium Oxide [Magnesium] 200 mg PO 1200 03/10/21 [History] Peppermint Oil [Ibgard] 2 tab PO DAILY 03/10/21 [History] Past Medical History HEENT History: Reports: Cataract Cardiovascular History: Reports: CAD, Hypertension Other Cardiovascular History: stent 10 years ago Respiratory History: Reports: Asthma Gastrointestinal History: Reports: Chronic Constipation Other Gastrointestinal History: severe colitis Genitourinary History: Reports: Urinary Incontinence 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 Dermatologic History: Reports: Other (See Below) Other Dermatologic History: itchy skin - Infectious Disease History Infectious Disease History: Reports: Other (See Below) Other Infectious Disease History: doesn't recall having any of these when listed off - Past Surgical History HEENT Surgical History: Reports: Cataract Surgery Cardiovascular Surgical History: Reports: Coronary Artery Stent Female Surgical History: Reports: Other (See Below) Social & Family History - Family History Family Medical History: Unobtainable HEENT: Reports: Cataract Cardiac: Reports: [place] Other Cardiac Family History: father Respiratory: Reports: None GI: Reports: None : Reports: None OBGYN: Reports: None Musculoskeletal: Reports: Arthritis Neurological: Reports: None Psychiatric: Reports: None Endocrine/Metabolic: Reports: Diabetes, type II Other Endocrine/Metabolic Family History: daughter Hematologic: Reports: None Immunologic: Reports: None Dermatologic: Reports: None Oncologic: Reports: Breast Other Oncologic Family History: sister - Tobacco Use Tobacco Use Status *Q: Never Tobacco User Second Hand Smoke Exposure: No - Caffeine Use Caffeine Use: Reports: Coffee - Recreational Drug Use Recreational Drug Use: No - Living Situation & Occupation Living situation: Reports: , with Family (Daughter) Occupation: Retired H&P Review of Systems - Review of Systems: Review Of Systems: See Below General: Reports: Weakness, Night Sweats, Weight Loss HEENT: Reports: No Symptoms Pulmonary: Reports: No Symptoms Cardiovascular: Reports: No Symptoms Gastrointestinal: Reports: No Symptoms Genitourinary: Reports: No Symptoms Musculoskeletal: Reports: Neck Pain Skin: Reports: No Symptoms Psychiatric: Reports: No Symptoms Neurological: Reports: Weakness Exam - Exam Exam: See Below - Vital Signs Vital Signs: Last Vital Signs Temp 97.6 F 03/10/21 14:30 Pulse 100 03/10/21 14:30 Resp 16 03/10/21 14:30 BP 110/79 03/10/21 14:30 Pulse Ox 98 03/10/21 14:30 Weight: 140 lb - Exam Quality Assessment: No: Supplemental Oxygen General: Alert, Oriented HEENT: Conjunctiva Clear, EOMI, Hearing Intact, Mucosa Moist & [place], Pupils Equal Neck: Supple, Trachea Midline Lungs: Clear to Auscultation, Normal Respiratory Effort Cardiovascular: Regular Rate, Regular Rhythm. No: Systolic Murmur GI/Abdominal Exam: Normal Bowel Sounds, Soft, Non-Tender, No Distention. No: Guarding, Rigid, Rebound Back Exam: Normal Inspection Extremities: Normal Inspection, Non-Tender, No Pedal Edema, Other (generalized atrophy ). No: Joint Swelling, Leg Pain Peripheral Pulses: 2+: Radial (L), Radial (R) Skin: Warm, Dry, Intact Neurological: Strength Equal Bilateral, Normal Speech, Normal Tone, Sensation Intact. No: Focal Deficit Neuro Extensive - Mental Status: Alert, Oriented x3, Normal Cognition, Other (GC S 15 ) Psychiatric: Alert, Normal Affect Sepsis Event Note - Evaluation Sepsis Screening Result: No Definite Risk - Focused Exam Vital Signs: Vital Signs Temp Pulse Resp BP Pulse Ox 03/10/21 14:30 97.6 F 100 16 110/79 98 Problem List Initiated/Reviewed/Updated: Yes Orders Last 24hrs: Active Orders 24 hr Category Date Time Status Peripheral IV Care [RC] . DIRECTED Care 03/10/21 14:41 Active CORONAVIRUS COVID-19 VICKIE [MOLEC] Stat Lab 03/10/21 14:50 Received Sodium Chloride 0.9% [Saline Flush] Med 03/10/21 14:41 Active 10 ml FLUSH ASDIRECTED PRN Peripheral IV Insertion Adult [OM.PC] Routine Oth 03/10/21 14:41 Ordered Medication Orders Sodium Chloride (Sodium Chloride 0.9% 10 Ml Syringe) 10 ml FLUSH ASDIRECTED PRN PRN Reason: Keep Vein Open Last Admin: 03/10/21 14:56 Dose: 10 ml Documented by: TEENA Assessment/Plan Comment:: Fall -Fall x2 at home today, no resulting injuries. -Ambulatory dysfunction, generalized weakness Pulmonary Nodule -CT Cervical: 1 cm nodule partially visualized within the upper chest which is not seen on old chest x-ray. -CT scan chest: Full nodules are seen within both lungs involving upper and lower lungs. Largest nodule measuring around 1.5 cm. Findings are most likely due to multiple metastatic nodules. Vertebral body lesion -T8 vertebral body has a lucent lesion most likely representing metastatic disease. Weight loss -Suspect secondary to occult malignancy DM II -New diagnosis, BG 230 on admit Leukocytosis -Wbc 15, CT did not reveal a pneumonia -Suspect stress demargination Plan: -Admit to observation -PT Evaluation -emergency medical services coordinator/case management consult -Strict fall precautions -Resume home medications -SCD's -Possible workup for malignancy vs defer to outpatient -Sliding scale insulin - Mortality Measure Prognosis:: Good
[2021-03-10] MEDS ORDERED: Acetaminophen 325 MG Tab PO PRN (15:56)
[2021-03-10] MEDS ORDERED: Morphine 2 MG/ML SYRINGE IVPUSH PRN (15:56)
[2021-03-10] MEDS ORDERED: Docusate Sodium 100 MG Cap PO PRN (15:56)
[2021-03-10] MEDS ORDERED: Albuterol/Ipratropium 3.0-0.5 MG/3 ML Neb Soln NEB PRN (15:56)
[2021-03-10] MEDS ORDERED: Ondansetron 4 MG Tab.DIS PO PRN (15:56)
[2021-03-10] MEDS ORDERED: hydrALAZINE 20 MG/ML SDV IVPUSH PRN (16:14)
[2021-03-10] MEDS ORDERED: Magnesium Oxide 400 MG Tab PO SCH (21:00)
[2021-03-10] MEDS ORDERED: Temazepam 7.5 MG Cap PO PRN (21:00)
[2021-03-10] MEDS: Insulin Lispro 100 UNIT/ML 10 ML Vial SUBCUT SCH ×2 (21:28→21:36)
[2021-03-10] MEDS: Acetaminophen/oxyCODONE 325-5 MG Tab PO PRN (21:28)
[2021-03-11] MEDS: Acetaminophen/oxyCODONE 325-5 MG Tab PO PRN (05:52)
[2021-03-11] MEDS ORDERED: ACETAMINOPHEN PO PRN (08:16)
[2021-03-11] MEDS ORDERED: HYDROCODONE PO PRN (08:16)
[2021-03-11] MEDS: Saccharomyces Boulardii (Probiotic) 250 MG Cap PO SCH (08:40)
[2021-03-11] MEDS: Magnesium Oxide 400 MG Tab PO SCH ×3 (08:40→22:31)
[2021-03-11] MEDS: Aspirin 81 MG Tab.EC PO SCH (08:41)
[2021-03-11] MEDS: TRIAMTERENE PO SCH (08:44)
[2021-03-11] MEDS: HCTZ PO SCH (08:44)
[2021-03-11] MEDS: Insulin Lispro 100 UNIT/ML 10 ML Vial SUBCUT SCH ×4 (08:46→22:32)
[2021-03-11] MEDS ORDERED: Lisinopril 10 MG Tab **PTOM PO SCH (09:00)
[2021-03-11] MEDS ORDERED: Sertraline 50 MG Tab **PTOM PO SCH (09:00)
[2021-03-11] MEDS ORDERED: Acetaminophen/HYDROcodone 325-5 MG Tab PO PRN (12:00)
--- NOTE | 2021-03-11 12:05 | PCM.PN ---
- General Info Date of Service: 03/11/21 Admission Dx/Problem (Free Text): fall; pulmonary nodule; vertebral body lesion Subjective Update: Sunshine states that she is feeling well despite some tenderness noted to her right hip area from falling at home. She denies any other complaints today. Functional Status: Reports: Pain Controlled, Tolerating Diet, Ambulating (With physical therapy), Urinating - Review of Systems General: Reports: No Symptoms HEENT: Reports: No Symptoms Pulmonary: Reports: No Symptoms Cardiovascular: Reports: No Symptoms Gastrointestinal: Reports: No Symptoms Genitourinary: Reports: No Symptoms Musculoskeletal: Reports: Other (Right hip pain due to fall at home) Skin: Reports: No Symptoms Neurological: Reports: No Symptoms Psychiatric: Reports: No Symptoms - Patient Data Vitals - Most Recent: Last Vital Signs Temp 98.0 F 03/11/21 08:07 Pulse 75 03/11/21 08:07 Resp 18 03/11/21 08:07 BP 113/53 L 03/11/21 08:44 Pulse Ox 94 L 03/11/21 08:07 Weight - Most Recent: 136 lb 1.6 oz I&O - Last 24 Hours: Intake & Output 03/10/21 03/11/21 03/11/21 22:59 06:59 14:59 Intake Total 200 120 Balance 200 120 Lab Results Last 24 Hours: Laboratory Results - last 24 hr 03/10/21 03/10/21 03/11/21 Range/Units 14:50 21:25 05:56 WBC (3.98-10.04) K/mm3 RBC (3.98-5.22) M/mm3 Hgb (11.2-15.7) gm/dl Hct (34.1-44.9) % MCV (79.4-94.8) fl MCH (25.6-32.2) pg MCHC (32.2-35.5) g/dl RDW Std Deviation (36.4-46.3) fL Plt Count (182-369) K/mm3 MPV (9.4-12.3) fl Neut % (Auto) (34.0-71.1) % Lymph % (Auto) (19.3-51.7) % Drew % (Auto) (4.7-12.5) % Eos % (Auto) (0.7-5.8) Baso % (Auto) (0.1-1.2) % Neut # (Auto) (1.56-6.13) K/mm3 Lymph # (Auto) (1.18-3.74) K/mm3 Drew # (Auto) (0.24-0.36) K/mm3 Eos # (Auto) (0.04-0.36) K/mm3 Baso # (Auto) (0.01-0.08) K/mm3 Sodium (136-145) mEq/L Potassium (3.5-5.1) mEq/L Chloride (98-107) mEq/L Carbon Dioxide (21-32) mEq/L Anion Gap (5-15) BUN (7-18) mg/dL Creatinine (0.55-1.02) mg/dL Est Cr Clr Drug Dosing mL/min Estimated GFR (MDRD) (>60) mL/min BUN/Creatinine Ratio (14-18) Glucose (83-115) mg/dL POC Glucose 214 H 173 H (70-99) mg/dL Calcium (8.5-10.1) mg/dL Urine Color (Yellow) Urine Appearance (Clear) Urine pH (5.0-8.0) Ur Specific Adolphus (1.005-1.030) Urine Protein (Negative) Urine Glucose (UA) (Negative) Urine Ketones (Negative) Urine Occult Blood (Negative) Urine Nitrite (Negative) Urine Bilirubin (Negative) Urine Urobilinogen (0.2-1.0) Ur Leukocyte Esterase (Negative) Urine RBC (0-5) /hpf Urine WBC (0-5) /hpf Ur Squamous Epith Cells (0-5) /hpf Amorphous Sediment (NOT SEEN) /hpf Urine Bacteria (FEW) /hpf Urine Mucus (FEW) /hpf SARS-CoV-2 RNA (VICKIE) Negative (NEGATIVE) 03/11/21 03/11/21 03/11/21 Range/Units 05:57 05:57 10:15 WBC 16.70 H (3.98-10.04) K/mm3 RBC 3.83 L (3.98-5.22) M/mm3 Hgb 10.1 L (11.2-15.7) gm/dl Hct 32.8 L (34.1-44.9) % MCV 85.6 (79.4-94.8) fl MCH 26.4 (25.6-32.2) pg MCHC 30.8 L (32.2-35.5) g/dl RDW Std Deviation 45.4 (36.4-46.3) fL Plt Count 411 H (182-369) K/mm3 MPV 9.7 (9.4-12.3) fl Neut % (Auto) 79.9 H (34.0-71.1) % Lymph % (Auto) 12.6 L (19.3-51.7) % Drew % (Auto) 6.6 (4.7-12.5) % Eos % (Auto) 0.4 L (0.7-5.8) Baso % (Auto) 0.3 (0.1-1.2) % Neut # (Auto) 13.33 H (1.56-6.13) K/mm3 Lymph # (Auto) 2.11 (1.18-3.74) K/mm3 Drew # (Auto) 1.11 H (0.24-0.36) K/mm3 Eos # (Auto) 0.07 (0.04-0.36) K/mm3 Baso # (Auto) 0.05 (0.01-0.08) K/mm3 Sodium 141 (136-145) mEq/L Potassium 3.4 L (3.5-5.1) mEq/L Chloride 102 (98-107) mEq/L Carbon Dioxide 26 (21-32) mEq/L Anion Gap 16.4 H (5-15) BUN 22 H (7-18) mg/dL Creatinine 1.1 H (0.55-1.02) mg/dL Est Cr Clr Drug Dosing 28.21 mL/min Estimated GFR (MDRD) 47 (>60) mL/min BUN/Creatinine Ratio 20.0 H (14-18) Glucose 183 H (83-115) mg/dL POC Glucose (70-99) mg/dL Calcium 8.7 (8.5-10.1) mg/dL Urine Color Yellow (Yellow) Urine Appearance Clear (Clear) Urine pH 7.0 (5.0-8.0) Ur Specific Adolphus 1.020 (1.005-1.030) Urine Protein Trace H (Negative) Urine Glucose (UA) Negative (Negative) Urine Ketones 1+ H (Negative) Urine Occult Blood Trace-lysed H (Negative) Urine Nitrite Negative (Negative) Urine Bilirubin Negative (Negative) Urine Urobilinogen 0.2 (0.2-1.0) Ur Leukocyte Esterase Negative (Negative) Urine RBC 10-20 H (0-5) /hpf Urine WBC 0-5 (0-5) /hpf Ur Squamous Epith Cells 0-5 (0-5) /hpf Amorphous Sediment Moderate H (NOT SEEN) /hpf Urine Bacteria Many H (FEW) /hpf Urine Mucus Not seen (FEW) /hpf SARS-CoV-2 RNA (VICKIE) (NEGATIVE) 03/11/21 Range/Units 11:32 WBC (3.98-10.04) K/mm3 RBC (3.98-5.22) M/mm3 Hgb (11.2-15.7) gm/dl Hct (34.1-44.9) % MCV (79.4-94.8) fl MCH (25.6-32.2) pg MCHC (32.2-35.5) g/dl RDW Std Deviation (36.4-46.3) fL Plt Count (182-369) K/mm3 MPV (9.4-12.3) fl Neut % (Auto) (34.0-71.1) % Lymph % (Auto) (19.3-51.7) % Drew % (Auto) (4.7-12.5) % Eos % (Auto) (0.7-5.8) Baso % (Auto) (0.1-1.2) % Neut # (Auto) (1.56-6.13) K/mm3 Lymph # (Auto) (1.18-3.74) K/mm3 Drew # (Auto) (0.24-0.36) K/mm3 Eos # (Auto) (0.04-0.36) K/mm3 Baso # (Auto) (0.01-0.08) K/mm3 Sodium (136-145) mEq/L Potassium (3.5-5.1) mEq/L Chloride (98-107) mEq/L Carbon Dioxide (21-32) mEq/L Anion Gap (5-15) BUN (7-18) mg/dL Creatinine (0.55-1.02) mg/dL Est Cr Clr Drug Dosing mL/min Estimated GFR (MDRD) (>60) mL/min BUN/Creatinine Ratio (14-18) Glucose (83-115) mg/dL POC Glucose 229 H (70-99) mg/dL Calcium (8.5-10.1) mg/dL Urine Color (Yellow) Urine Appearance (Clear) Urine pH (5.0-8.0) Ur Specific Adolphus (1.005-1.030) Urine Protein (Negative) Urine Glucose (UA) (Negative) Urine Ketones (Negative) Urine Occult Blood (Negative) Urine Nitrite (Negative) Urine Bilirubin (Negative) Urine Urobilinogen (0.2-1.0) Ur Leukocyte Esterase (Negative) Urine RBC (0-5) /hpf Urine WBC (0-5) /hpf Ur Squamous Epith Cells (0-5) /hpf Amorphous Sediment (NOT SEEN) /hpf Urine Bacteria (FEW) /hpf Urine Mucus (FEW) /hpf SARS-CoV-2 RNA (VICKIE) (NEGATIVE) Med Orders - Current: Current Medications Acetaminophen (Acetaminophen 325 Mg Tab) 650 mg PO Q4H PRN PRN Reason: Pain (Mild 1-3)/fever Last Admin: 03/11/21 08:42 Dose: 650 mg Documented by: Acetaminophen (Acetaminophen 325 Mg Tab) 650 mg PO QPM [facility] Hydrocodone Bitart/Acetaminophen (Acetaminophen/Hydrocodone 325-5 Mg Tab) 1 tab PO Q4H PRN PRN Reason: Pain (severe 7-10) Albuterol/Ipratropium (Albuterol/Ipratropium 3.0-0.5 Mg/3 Ml Neb Soln) 3 ml NEB Q4H PRN PRN Reason: Shortness Of Breath/wheezing Aspirin (Aspirin 81 Mg Tab.Ec) 81 mg PO DAILY [facility] Last Admin: 03/11/21 08:41 Dose: 81 mg Documented by: Docusate Sodium (Docusate Sodium 100 Mg Cap) 100 mg PO BID PRN PRN Reason: Constipation Docusate Sodium (Docusate Sodium 100 Mg Cap) 200 mg PO QPM [facility] Hydralazine HCl (Hydralazine 20 Mg/Ml Sdv) 10 mg IVPUSH Q4H PRN PRN Reason: Hypertension Insulin Human Lispro (Insulin Lispro 100 Unit/Ml 10 Ml Vial) 0 unit SUBCUT QIDACANDBED [facility]; Protocol Last Admin: 03/11/21 08:46 Dose: 2 units Documented by: Lisinopril (Lisinopril 10 Mg Tab) 10 mg PO BID [facility] Magnesium Oxide (Magnesium Oxide 400 Mg Tab) 200 mg PO TID [facility] Last Admin: 03/11/21 08:40 Dose: 200 mg Documented by: Morphine Sulfate (Morphine 2 Mg/Ml Syringe) 2 mg IVPUSH Q2H PRN PRN Reason: Pain (severe 7-10) Stop: 03/11/21 15:59 Hctz/Triamterene 25- (37.5 Mg Tab Ptom) 0 tab PO DAILY [facility] Last Admin: 03/11/21 08:44 Dose: 0.5 tab Documented by: Ondansetron HCl (Ondansetron 4 Mg Tab.Dis) 4 mg PO Q4H PRN PRN Reason: nausea, able to take PO Oxycodone/Acetaminophen (Acetaminophen/Oxycodone 325-5 Mg Tab) 1 tab PO Q4H PRN PRN Reason: Pain (moderate 4-6) Last Admin: 03/11/21 05:52 Dose: 1 tab Documented by: Saccharomyces Boulardii (Saccharomyces Boulardii (Probiotic) 250 Mg Cap) 250 mg PO DAILY [facility] Last Admin: 03/11/21 08:40 Dose: 250 mg Documented by: Sertraline HCl (Sertraline 50 Mg Tab) 75 mg PO DAILY [facility] Sodium Chloride (Sodium Chloride 0.9% 10 Ml Syringe) 10 ml FLUSH ASDIRECTED PRN PRN Reason: Keep Vein Open Last Admin: 03/10/21 14:56 Dose: 10 ml Documented by: Temazepam (Temazepam 7.5 Mg Cap) 7.5 mg PO BEDTIME PRN PRN Reason: Sleep Discontinued Medications Lisinopril (Lisinopril 10 Mg Tab Ptom) 10 mg PO BID [facility] Last Admin: 03/11/21 08:44 Dose: 10 mg Documented by: Magnesium Oxide (Magnesium Oxide 400 Mg Tab) 400 mg PO BID [facility] Last Admin: 03/10/21 21:28 Dose: 400 mg Documented by: Acetaminophen/Hydrocodone 5-325 Mg Tablet Ptom 1 tab PO Q4H PRN PRN Reason: Pain (severe 7-10) Sertraline HCl (Sertraline 50 Mg Tab Ptom) 0 mg PO DAILY [facility] Last Admin: 03/11/21 08:45 Dose: 75 mg Documented by: - Exam Quality Assessment: DVT Prophylaxis. No: Supplemental Oxygen General: Alert, Oriented, Cooperative, No Acute Distress HEENT: Pupils Equal, Mucous Membr. Moist/[place] Neck: Supple, Trachea Midline Lungs: Normal Respiratory Effort, Crackles (Left posterior lobe). No: Clear to Auscultation Cardiovascular: Regular Rate, Regular Rhythm, No Murmurs GI/Abdominal Exam: Normal Bowel Sounds, Soft, Non-Tender, No Distention (Female) Exam: Deferred Back Exam: Normal Inspection Extremities: Normal Inspection, Normal Range of Motion, No Pedal Edema, Normal Capillary Refill. No: Non-Tender (Right hip tenderness) Peripheral Pulses: 2+: Radial (L), Radial (R) Skin: Warm, Dry, Intact Neurological: No New Focal Deficit Psy/Mental Status: Alert, Normal Affect, Normal Mood - Patient Data Lab Results Last 24 hrs: Laboratory Results - last 24 hr 03/10/21 03/10/21 03/11/21 Range/Units 14:50 21:25 05:56 WBC (3.98-10.04) K/mm3 RBC (3.98-5.22) M/mm3 Hgb (11.2-15.7) gm/dl Hct (34.1-44.9) % MCV (79.4-94.8) fl MCH (25.6-32.2) pg MCHC (32.2-35.5) g/dl RDW Std Deviation (36.4-46.3) fL Plt Count (182-369) K/mm3 MPV (9.4-12.3) fl Neut % (Auto) (34.0-71.1) % Lymph % (Auto) (19.3-51.7) % Drew % (Auto) (4.7-12.5) % Eos % (Auto) (0.7-5.8) Baso % (Auto) (0.1-1.2) % Neut # (Auto) (1.56-6.13) K/mm3 Lymph # (Auto) (1.18-3.74) K/mm3 Drew # (Auto) (0.24-0.36) K/mm3 Eos # (Auto) (0.04-0.36) K/mm3 Baso # (Auto) (0.01-0.08) K/mm3 Sodium (136-145) mEq/L Potassium (3.5-5.1) mEq/L Chloride (98-107) mEq/L Carbon Dioxide (21-32) mEq/L Anion Gap (5-15) BUN (7-18) mg/dL Creatinine (0.55-1.02) mg/dL Est Cr Clr Drug Dosing mL/min Estimated GFR (MDRD) (>60) mL/min BUN/Creatinine Ratio (14-18) Glucose (83-115) mg/dL POC Glucose 214 H 173 H (70-99) mg/dL Calcium (8.5-10.1) mg/dL Urine Color (Yellow) Urine Appearance (Clear) Urine pH (5.0-8.0) Ur Specific Adolphus (1.005-1.030) Urine Protein (Negative) Urine Glucose (UA) (Negative) Urine Ketones (Negative) Urine Occult Blood (Negative) Urine Nitrite (Negative) Urine Bilirubin (Negative) Urine Urobilinogen (0.2-1.0) Ur Leukocyte Esterase (Negative) Urine RBC (0-5) /hpf Urine WBC (0-5) /hpf Ur Squamous Epith Cells (0-5) /hpf Amorphous Sediment (NOT SEEN) /hpf Urine Bacteria (FEW) /hpf Urine Mucus (FEW) /hpf SARS-CoV-2 RNA (VICKIE) Negative (NEGATIVE) 03/11/21 03/11/21 03/11/21 Range/Units 05:57 05:57 10:15 WBC 16.70 H (3.98-10.04) K/mm3 RBC 3.83 L (3.98-5.22) M/mm3 Hgb 10.1 L (11.2-15.7) gm/dl Hct 32.8 L (34.1-44.9) % MCV 85.6 (79.4-94.8) fl MCH 26.4 (25.6-32.2) pg MCHC 30.8 L (32.2-35.5) g/dl RDW Std Deviation 45.4 (36.4-46.3) fL Plt Count 411 H (182-369) K/mm3 MPV 9.7 (9.4-12.3) fl Neut % (Auto) 79.9 H (34.0-71.1) % Lymph % (Auto) 12.6 L (19.3-51.7) % Drew % (Auto) 6.6 (4.7-12.5) % Eos % (Auto) 0.4 L (0.7-5.8) Baso % (Auto) 0.3 (0.1-1.2) % Neut # (Auto) 13.33 H (1.56-6.13) K/mm3 Lymph # (Auto) 2.11 (1.18-3.74) K/mm3 Drew # (Auto) 1.11 H (0.24-0.36) K/mm3 Eos # (Auto) 0.07 (0.04-0.36) K/mm3 Baso # (Auto) 0.05 (0.01-0.08) K/mm3 Sodium 141 (136-145) mEq/L Potassium 3.4 L (3.5-5.1) mEq/L Chloride 102 (98-107) mEq/L Carbon Dioxide 26 (21-32) mEq/L Anion Gap 16.4 H (5-15) BUN 22 H (7-18) mg/dL Creatinine 1.1 H (0.55-1.02) mg/dL Est Cr Clr Drug Dosing 28.21 mL/min Estimated GFR (MDRD) 47 (>60) mL/min BUN/Creatinine Ratio 20.0 H (14-18) Glucose 183 H (83-115) mg/dL POC Glucose (70-99) mg/dL Calcium 8.7 (8.5-10.1) mg/dL Urine Color Yellow (Yellow) Urine Appearance Clear (Clear) Urine pH 7.0 (5.0-8.0) Ur Specific Adolphus 1.020 (1.005-1.030) Urine Protein Trace H (Negative) Urine Glucose (UA) Negative (Negative) Urine Ketones 1+ H (Negative) Urine Occult Blood Trace-lysed H (Negative) Urine Nitrite Negative (Negative) Urine Bilirubin Negative (Negative) Urine Urobilinogen 0.2 (0.2-1.0) Ur Leukocyte Esterase Negative (Negative) Urine RBC 10-20 H (0-5) /hpf Urine WBC 0-5 (0-5) /hpf Ur Squamous Epith Cells 0-5 (0-5) /hpf Amorphous Sediment Moderate H (NOT SEEN) /hpf Urine Bacteria Many H (FEW) /hpf Urine Mucus Not seen (FEW) /hpf SARS-CoV-2 RNA (VICKIE) (NEGATIVE) 03/11/21 Range/Units 11:32 WBC (3.98-10.04) K/mm3 RBC (3.98-5.22) M/mm3 Hgb (11.2-15.7) gm/dl Hct (34.1-44.9) % MCV (79.4-94.8) fl MCH (25.6-32.2) pg MCHC (32.2-35.5) g/dl RDW Std Deviation (36.4-46.3) fL Plt Count (182-369) K/mm3 MPV (9.4-12.3) fl Neut % (Auto) (34.0-71.1) % Lymph % (Auto) (19.3-51.7) % Drew % (Auto) (4.7-12.5) % Eos % (Auto) (0.7-5.8) Baso % (Auto) (0.1-1.2) % Neut # (Auto) (1.56-6.13) K/mm3 Lymph # (Auto) (1.18-3.74) K/mm3 Drew # (Auto) (0.24-0.36) K/mm3 Eos # (Auto) (0.04-0.36) K/mm3 Baso # (Auto) (0.01-0.08) K/mm3 Sodium (136-145) mEq/L Potassium (3.5-5.1) mEq/L Chloride (98-107) mEq/L Carbon Dioxide (21-32) mEq/L Anion Gap (5-15) BUN (7-18) mg/dL Creatinine (0.55-1.02) mg/dL Est Cr Clr Drug Dosing mL/min Estimated GFR (MDRD) (>60) mL/min BUN/Creatinine Ratio (14-18) Glucose (83-115) mg/dL POC Glucose 229 H (70-99) mg/dL Calcium (8.5-10.1) mg/dL Urine Color (Yellow) Urine Appearance (Clear) Urine pH (5.0-8.0) Ur Specific Adolphus (1.005-1.030) Urine Protein (Negative) Urine Glucose (UA) (Negative) Urine Ketones (Negative) Urine Occult Blood (Negative) Urine Nitrite (Negative) Urine Bilirubin (Negative) Urine Urobilinogen (0.2-1.0) Ur Leukocyte Esterase (Negative) Urine RBC (0-5) /hpf Urine WBC (0-5) /hpf Ur Squamous Epith Cells (0-5) /hpf Amorphous Sediment (NOT SEEN) /hpf Urine Bacteria (FEW) /hpf Urine Mucus (FEW) /hpf SARS-CoV-2 RNA (VICKIE) (NEGATIVE) Result Diagrams: 03/11/21 05:57 03/11/21 05:57 Sepsis Event Note - Evaluation Sepsis Screening Result: No Definite Risk - Focused Exam Vital Signs: Vital Signs Temp Temp Pulse Resp BP Pulse Ox 03/11/21 08:44 113/53 L 03/11/21 08:07 98.0 F 75 18 113/53 L 94 L 03/11/21 06:00 97.2 F 82 18 145/65 H 93 L - Problem List & Annotations (1) Fall SNOMED Code(s): 1613391, 207240930 Code(s): W19.XXXA - UNSPECIFIED FALL, INITIAL ENCOUNTER Status: Acute Priority: High Current Visit: Yes Qualifiers: Encounter type: initial encounter Qualified Code(s): W19.XXXA - Unspecified fall, initial encounter (2) Pulmonary nodule SNOMED Code(s): 223429947 Code(s): R91.1 - SOLITARY PULMONARY NODULE Status: Acute Priority: Low Current Visit: Yes (3) Hyperglycemia due to type 2 diabetes mellitus SNOMED Code(s): 245646517382440, 725184931421104 Code(s): E11.65 - TYPE 2 DIABETES MELLITUS WITH HYPERGLYCEMIA Status: Acute Priority: Medium Current Visit: Yes Qualifiers: Diabetes mellitus chcf insulin use: without chcf use Qualified Code(s): E11.65 - Type 2 diabetes mellitus with hyperglycemia (4) Lesion of bone of thoracic spine SNOMED Code(s): 162606314, 341775850 Code(s): M89.9 - DISORDER OF BONE, UNSPECIFIED Status: Acute Priority: Low Current Visit: Yes - Problem List Review Problem List Initiated/Reviewed/Updated: Yes - My Orders Last 24 Hours: My Active Orders 03/11/21 08:11 Consult to Case Management/Hall Clerk [CONS] Routine 03/11/21 09:00 Magnesium Oxide 200 mg PO TID 03/11/21 12:00 Acetaminophen/HYDROcodone [Howard 325-5 MG] 1 tab PO Q4H PRN 03/11/21 18:00 Acetaminophen [TylenoL] 650 mg PO QPM Docusate Sodium [Colace] 200 mg PO QPM - Assessment Assessment:: 03/11/21 -Complains of tenderness noted to right hip due to falling; denies any complaints of back pain -Has been up ambulating with physical therapy using a walker -Dietitian was in to see the patient to assess nutritional needs as she states she has not had much of an appetite for quite some time -Leukocytosis; urinalysis did not show any signs of infection -Labs were not repeated today as the patient did have laboratory evaluation early this morning - Plan Plan:: 03/11/21 Plan: -Admit to observation -PT Evaluation -business services associate/case management consult -Strict fall precautions -Resume home medications -SCD's -Possible workup for malignancy vs defer to outpatient -Sliding scale insulin 03/11/21 -Changed to inpatient status -Physical therapy to evaluate and treat -business services associate for discharge charge planning/usp placement -Continue fall precautions -SCDs for DVT prophylaxis -Repeat labs in the a.m. -Defer work-up for malignancy to outpatient Primary Physician: Akiko Duffy NP Code Status: Full Code DVT prophylaxis: SCD's Pt will likely be here 1-2 more days due to usp placement.
[2021-03-11] MEDS ORDERED: Docusate Sodium 100 MG Cap PO SCH (18:00)
[2021-03-11] MEDS ORDERED: Acetaminophen 325 MG Tab PO SCH (18:00)
[2021-03-11] MEDS: Lisinopril 10 MG Tab PO SCH (22:32)
[2021-03-12 08:20] LABS: HEMOGLOBIN A1C 9.9 %
[2021-03-12] MEDS ORDERED: Sertraline 50 MG Tab PO SCH (09:00)
[2021-03-12] MEDS: Insulin Lispro 100 UNIT/ML 10 ML Vial SUBCUT SCH ×2 (09:27→11:37)
[2021-03-12] MEDS: Aspirin 81 MG Tab.EC PO SCH (09:28)
[2021-03-12] MEDS: Saccharomyces Boulardii (Probiotic) 250 MG Cap PO SCH (09:28)
[2021-03-12] MEDS: Magnesium Oxide 400 MG Tab PO SCH (09:29)
[2021-03-12] MEDS: Lisinopril 10 MG Tab PO SCH (09:30)
[2021-03-12] MEDS: HCTZ PO SCH (10:38)
[2021-03-12] MEDS: TRIAMTERENE PO SCH (10:38)
--- NOTE | 2021-03-12 11:07 | PCM.DCSUM1 ---
Discharge Summary - Hospital Course Free Text/Narrative:: Discharge Diagnosis -Mechanical Fall -Pumonary Nodule -Vertebral Body lesion -Weight loss -DM II -new Dx -leukocytosis HPI: Patient is a 85-year-old female who initially presented to the emergency department earlier this morning after suffering a fall at home. Patient was reportedly walking out of her bathroom when her legs gave out and she fell. The patient did not have any loss of consciousness however she did have some neck pain after the fall however she reported that she did not hit her head. In the emergency department a CT scan brain and C-spine was completed with no acute injuries however there was a incidental finding of a nodule in her lung. Per radiology it was suggested to obtain a CT of her chest. A CT of the chest was completed which showed multiple nodules and a possible lytic lesion at T8. The emergency room physician did speak with the patient's outpatient provider who wanted to obtain a CT abdomen and pelvis tomorrow as an outpatient. The patient was recommended for discharge. Family had concerns about the patient being able to ambulate. The nurse in the emergency department had the patient get up with a walker and she did fairly well and was discharged home with home health. Social work had visited with the patient to talk about home health assisted living or placement in a senior care. Patient declined assisted living or senior care placement. Patient was subsequently discharged home with her daughter. At home the patient reportedly went to the bathroom however her legs got weak and she fell once again. Patient denied her head did not have any loss of consciousness. She returned back to the emergency department via ambulance. Hospital course: Patient was admitted secondary to mechanical fall and inability for family to care for her safely at home given recurrent falls. The patient was seen by physical therapy and Occupational Therapy who recommended PT OT at residential facility for further strengthening. During the patient's hospitalization she had incidental findings on CT chest multiple pulmonary nodules within both lungs involving the upper and lower lungs the largest measuring 1.5 cm likely representing metastatic nodules. Patient was also found to have a T8 vertebral body lesion which is lucent consistent with possible metastatic disease. At time of presentation patient was noted to have had unintentional weight loss which was also concerning for malignancy. White blood cell count was 16 at time of presentation however did decrease down to 15, there is no evidence of pneumonia urinary tract infection or other infection at time of presentation. Patient was found to have diabetes mellitus with a hemoglobin A1c of 8.8% representing a new diagnosis of diabetes. Outpatient followup/Recommendations: Screening for malignancy to include CT abd/pelvis vs PET scan. Patient has never had colonoscopy. Started on metformin for DM II, is currently on ACEI. Diagnosis: Stroke: No - Discharge Data Discharge Date: 03/12/21 Discharge Disposition: DC/Tfer to SNF 03 Condition: Good - Referral to Home Health Primary Care Physician: Monalisa Duffy NP - Patient Summary/Data Consults: Consultations 03/10/21 15:56 OT Evaluation and Treatment [CONS] Routine PT Evaluation and Treatment [CONS] Routine 03/11/21 08:11 Consult to Case Management/[employer] [CONS] Routine - Discharge Plan *PRESCRIPTION DRUG MONITORING PROGRAM REVIEWED*: No *COPY OF PRESCRIPTION DRUG MONITORING REPORT IN PATIENT OLIVIA: No Prescriptions/Med Rec: metFORMIN [Glucophage] 500 mg PO BIDMEALS #60 tab Home Medications: Home Meds Hydrocodone/Acetaminophen [Hydrocodone-Acetaminophen 5-325] 1 tab PO Q4H PRN 07/14/14 [History] Sertraline [Zoloft] 75 mg PO DAILY 07/14/14 [History] Triamterene/Hydrochlorothiazid [Triamterene-HCTZ 37.5-25 MG] 0.5 tab PO DAILY 07/14/14 [History] Lisinopril 10 mg PO BID #0 01/16/18 [Rx] Acetaminophen [Acetaminophen Extra Strength] 500 mg PO QPM 03/10/21 [History] Aspirin [Aspirin EC] 81 mg PO DAILY 03/10/21 [History] Bacillus Coagulans [Probiotic] 1 tab PO DAILY 03/10/21 [History] Docusate Sodium [Stool Softener] 250 mg PO QPM 03/10/21 [History] Magnesium Oxide [Magnesium] 200 mg PO TID 03/10/21 [History] Peppermint Oil [Ibgard] 2 tab PO DAILY 03/10/21 [History] Dicyclomine [Bentyl] 10 mg PO TID PRN 03/11/21 [History] metFORMIN [Glucophage] 500 mg PO BIDMEALS #60 tab 03/12/21 [Rx] Oxygen Therapy Mode: Room Air Patient Handouts: Weakness, [id number], Failure to Thrive, Adult, [id number] Forms: ED Department Discharge Referrals: Ramone Gonzalez MD [Ordering Only Provider] - 03/22/21 11:30 am (check in at 11:15) - Discharge Summary/Plan Comment DC Time >30 min.: Yes - General Info Date of Service: 03/12/21 Functional Status: Reports: Pain Controlled - Review of Systems General: Reports: No Symptoms HEENT: Reports: No Symptoms Pulmonary: Reports: No Symptoms Cardiovascular: Reports: No Symptoms Gastrointestinal: Reports: No Symptoms Genitourinary: Reports: No Symptoms Musculoskeletal: Reports: No Symptoms Skin: Reports: No Symptoms Neurological: Reports: No Symptoms Psychiatric: Reports: No Symptoms - Patient Data Vitals - Most Recent: Last Vital Signs Temp 98.1 F 03/12/21 03:29 Pulse 87 03/12/21 09:28 Resp 18 03/12/21 09:28 BP 109/53 L 03/12/21 09:30 Pulse Ox 97 03/12/21 09:28 Weight - Most Recent: 136 lb 1.603 oz I&O - Last 24 hours: Intake & Output 03/11/21 03/12/21 03/12/21 22:59 06:59 14:59 Intake Total 940 50 Output Total 300 Balance 640 50 Lab Results - Last 24 hrs: Laboratory Results - last 24 hr 03/11/21 03/11/21 03/11/21 Range/Units 10:15 11:32 17:09 WBC (3.98-10.04) K/mm3 RBC (3.98-5.22) M/mm3 Hgb (11.2-15.7) gm/dl Hct (34.1-44.9) % MCV (79.4-94.8) fl MCH (25.6-32.2) pg MCHC (32.2-35.5) g/dl RDW Std Deviation (36.4-46.3) fL Plt Count (182-369) K/mm3 MPV (9.4-12.3) fl Neut % (Auto) (34.0-71.1) % Lymph % (Auto) (19.3-51.7) % [place] % (Auto) (4.7-12.5) % Eos % (Auto) (0.7-5.8) Baso % (Auto) (0.1-1.2) % Neut # (Auto) (1.56-6.13) K/mm3 Lymph # (Auto) (1.18-3.74) K/mm3 [place] # (Auto) (0.24-0.36) K/mm3 Eos # (Auto) (0.04-0.36) K/mm3 Baso # (Auto) (0.01-0.08) K/mm3 Sodium (136-145) mEq/L Potassium (3.5-5.1) mEq/L Chloride (98-107) mEq/L Carbon Dioxide (21-32) mEq/L Anion Gap (5-15) BUN (7-18) mg/dL Creatinine (0.55-1.02) mg/dL Est Cr Clr Drug Dosing mL/min Estimated GFR (MDRD) (>60) mL/min BUN/Creatinine Ratio (14-18) Glucose (83-115) mg/dL POC Glucose 229 H 182 H (70-99) mg/dL Hemoglobin A1c ( - 5.6) % Calcium (8.5-10.1) mg/dL Magnesium (1.8-2.4) mg/dl Total Bilirubin (0.2-1.0) mg/dL AST (15-37) U/L ALT (14-59) U/L Alkaline Phosphatase (46-116) U/L Total Protein (6.4-8.2) g/dl Albumin (3.4-5.0) g/dl Globulin gm/dL Albumin/Globulin Ratio (1-2) Urine Color Yellow (Yellow) Urine Appearance Clear (Clear) Urine pH 7.0 (5.0-8.0) Ur Specific [place] 1.020 (1.005-1.030) Urine Protein Trace H (Negative) Urine Glucose (UA) Negative (Negative) Urine Ketones 1+ H (Negative) Urine Occult Blood Trace-lysed H (Negative) Urine Nitrite Negative (Negative) Urine Bilirubin Negative (Negative) Urine Urobilinogen 0.2 (0.2-1.0) Ur Leukocyte Esterase Negative (Negative) Urine RBC 10-20 H (0-5) /hpf Urine WBC 0-5 (0-5) /hpf Ur Squamous Epith Cells 0-5 (0-5) /hpf Amorphous Sediment Moderate H (NOT SEEN) /hpf Urine Bacteria Many H (FEW) /hpf Urine Mucus Not seen (FEW) /hpf SARS-CoV-2 RNA (VICKIE) (NEGATIVE) 03/11/21 03/12/21 03/12/21 Range/Units 21:10 06:03 06:03 WBC 15.33 H (3.98-10.04) K/mm3 RBC 3.68 L (3.98-5.22) M/mm3 Hgb 9.6 L (11.2-15.7) gm/dl Hct 31.5 L (34.1-44.9) % MCV 85.6 (79.4-94.8) fl MCH 26.1 (25.6-32.2) pg MCHC 30.5 L (32.2-35.5) g/dl RDW Std Deviation 45.3 (36.4-46.3) fL Plt Count 416 H (182-369) K/mm3 MPV 9.5 (9.4-12.3) fl Neut % (Auto) 75.5 H (34.0-71.1) % Lymph % (Auto) 16.3 L (19.3-51.7) % [place] % (Auto) 6.2 (4.7-12.5) % Eos % (Auto) 1.4 (0.7-5.8) Baso % (Auto) 0.3 (0.1-1.2) % Neut # (Auto) 11.58 H (1.56-6.13) K/mm3 Lymph # (Auto) 2.50 (1.18-3.74) K/mm3 [place] # (Auto) 0.95 H (0.24-0.36) K/mm3 Eos # (Auto) 0.21 (0.04-0.36) K/mm3 Baso # (Auto) 0.05 (0.01-0.08) K/mm3 Sodium 142 (136-145) mEq/L Potassium 3.5 (3.5-5.1) mEq/L Chloride 104 (98-107) mEq/L Carbon Dioxide 26 (21-32) mEq/L Anion Gap 15.5 H (5-15) BUN 24 H (7-18) mg/dL Creatinine 1.1 H (0.55-1.02) mg/dL Est Cr Clr Drug Dosing 28.25 mL/min Estimated GFR (MDRD) 47 (>60) mL/min BUN/Creatinine Ratio 21.8 H (14-18) Glucose 160 H (83-115) mg/dL POC Glucose 207 H (70-99) mg/dL Hemoglobin A1c ( - 5.6) % Calcium 9.0 (8.5-10.1) mg/dL Magnesium 1.9 (1.8-2.4) mg/dl Total Bilirubin 0.4 (0.2-1.0) mg/dL AST 17 (15-37) U/L ALT 18 (14-59) U/L Alkaline Phosphatase 93 (46-116) U/L Total Protein 6.0 L (6.4-8.2) g/dl Albumin 2.1 L (3.4-5.0) g/dl Globulin 3.9 gm/dL Albumin/Globulin Ratio 0.5 L (1-2) Urine Color (Yellow) Urine Appearance (Clear) Urine pH (5.0-8.0) Ur Specific [place] (1.005-1.030) Urine Protein (Negative) Urine Glucose (UA) (Negative) Urine Ketones (Negative) Urine Occult Blood (Negative) Urine Nitrite (Negative) Urine Bilirubin (Negative) Urine Urobilinogen (0.2-1.0) Ur Leukocyte Esterase (Negative) Urine RBC (0-5) /hpf Urine WBC (0-5) /hpf Ur Squamous Epith Cells (0-5) /hpf Amorphous Sediment (NOT SEEN) /hpf Urine Bacteria (FEW) /hpf Urine Mucus (FEW) /hpf SARS-CoV-2 RNA (VICKIE) (NEGATIVE) 03/12/21 03/12/21 03/12/21 Range/Units 06:03 06:03 07:12 WBC (3.98-10.04) K/mm3 RBC (3.98-5.22) M/mm3 Hgb (11.2-15.7) gm/dl Hct (34.1-44.9) % MCV (79.4-94.8) fl MCH (25.6-32.2) pg MCHC (32.2-35.5) g/dl RDW Std Deviation (36.4-46.3) fL Plt Count (182-369) K/mm3 MPV (9.4-12.3) fl Neut % (Auto) (34.0-71.1) % Lymph % (Auto) (19.3-51.7) % [place] % (Auto) (4.7-12.5) % Eos % (Auto) (0.7-5.8) Baso % (Auto) (0.1-1.2) % Neut # (Auto) (1.56-6.13) K/mm3 Lymph # (Auto) (1.18-3.74) K/mm3 [place] # (Auto) (0.24-0.36) K/mm3 Eos # (Auto) (0.04-0.36) K/mm3 Baso # (Auto) (0.01-0.08) K/mm3 Sodium (136-145) mEq/L Potassium (3.5-5.1) mEq/L Chloride (98-107) mEq/L Carbon Dioxide (21-32) mEq/L Anion Gap (5-15) BUN (7-18) mg/dL Creatinine (0.55-1.02) mg/dL Est Cr Clr Drug Dosing mL/min Estimated GFR (MDRD) (>60) mL/min BUN/Creatinine Ratio (14-18) Glucose (83-115) mg/dL POC Glucose 150 H (70-99) mg/dL Hemoglobin A1c 9.9 H ( - 5.6) % Calcium (8.5-10.1) mg/dL Magnesium (1.8-2.4) mg/dl Total Bilirubin (0.2-1.0) mg/dL AST (15-37) U/L ALT (14-59) U/L Alkaline Phosphatase (46-116) U/L Total Protein (6.4-8.2) g/dl Albumin (3.4-5.0) g/dl Globulin gm/dL Albumin/Globulin Ratio (1-2) Urine Color (Yellow) Urine Appearance (Clear) Urine pH (5.0-8.0) Ur Specific [place] (1.005-1.030) Urine Protein (Negative) Urine Glucose (UA) (Negative) Urine Ketones (Negative) Urine Occult Blood (Negative) Urine Nitrite (Negative) Urine Bilirubin (Negative) Urine Urobilinogen (0.2-1.0) Ur Leukocyte Esterase (Negative) Urine RBC (0-5) /hpf Urine WBC (0-5) /hpf Ur Squamous Epith Cells (0-5) /hpf Amorphous Sediment (NOT SEEN) /hpf Urine Bacteria (FEW) /hpf Urine Mucus (FEW) /hpf SARS-CoV-2 RNA (VICKIE) Negative (NEGATIVE) Med Orders - Current: Current Medications Acetaminophen (Acetaminophen 325 Mg Tab) 650 mg PO Q4H PRN PRN Reason: Pain (Mild 1-3)/fever Last Admin: 03/11/21 08:42 Dose: 650 mg Documented by: Acetaminophen (Acetaminophen 325 Mg Tab) 650 mg PO QPM [facility] Last Admin: 03/11/21 17:33 Dose: 650 mg Documented by: Hydrocodone Bitart/Acetaminophen (Acetaminophen/Hydrocodone 325-5 Mg Tab) 1 tab PO Q4H PRN PRN Reason: Pain (severe 7-10) Last Admin: 03/12/21 09:31 Dose: 1 tab Documented by: Albuterol/Ipratropium (Albuterol/Ipratropium 3.0-0.5 Mg/3 Ml Neb Soln) 3 ml NEB Q4H PRN PRN Reason: Shortness Of Breath/wheezing Aspirin (Aspirin 81 Mg Tab.Ec) 81 mg PO DAILY [facility] Last Admin: 03/12/21 09:28 Dose: 81 mg Documented by: Docusate Sodium (Docusate Sodium 100 Mg Cap) 100 mg PO BID PRN PRN Reason: Constipation Docusate Sodium (Docusate Sodium 100 Mg Cap) 200 mg PO QPM [facility] Last Admin: 03/11/21 17:32 Dose: 200 mg Documented by: Hydralazine HCl (Hydralazine 20 Mg/Ml Sdv) 10 mg IVPUSH Q4H PRN PRN Reason: Hypertension Insulin Human Lispro (Insulin Lispro 100 Unit/Ml 10 Ml Vial) 0 unit SUBCUT QIDACANDBED [facility]; Protocol Last Admin: 03/12/21 09:27 Dose: 2 units Documented by: Lisinopril (Lisinopril 10 Mg Tab) 10 mg PO BID [facility] Last Admin: 03/12/21 09:30 Dose: 10 mg Documented by: Magnesium Oxide (Magnesium Oxide 400 Mg Tab) 200 mg PO TID [facility] Last Admin: 03/12/21 09:29 Dose: 200 mg Documented by: Hctz/Triamterene 25- (37.5 Mg Tab Ptom) 0 tab PO DAILY [facility] Last Admin: 03/12/21 10:38 Dose: Not Given Documented by: Ondansetron HCl (Ondansetron 4 Mg Tab.Dis) 4 mg PO Q4H PRN PRN Reason: nausea, able to take PO Saccharomyces Boulardii (Saccharomyces Boulardii (Probiotic) 250 Mg Cap) 250 mg PO DAILY [facility] Last Admin: 03/12/21 09:28 Dose: 250 mg Documented by: Sertraline HCl (Sertraline 50 Mg Tab) 75 mg PO DAILY [facility] Last Admin: 03/12/21 09:30 Dose: 75 mg Documented by: Sodium Chloride (Sodium Chloride 0.9% 10 Ml Syringe) 10 ml FLUSH ASDIRECTED PRN PRN Reason: Keep Vein Open Last Admin: 03/10/21 14:56 Dose: 10 ml Documented by: Temazepam (Temazepam 7.5 Mg Cap) 7.5 mg PO BEDTIME PRN PRN Reason: Sleep Discontinued Medications Lisinopril (Lisinopril 10 Mg Tab Ptom) 10 mg PO BID [facility] Last Admin: 03/11/21 08:44 Dose: 10 mg Documented by: Magnesium Oxide (Magnesium Oxide 400 Mg Tab) 400 mg PO BID [facility] Last Admin: 03/10/21 21:28 Dose: 400 mg Documented by: Morphine Sulfate (Morphine 2 Mg/Ml Syringe) 2 mg IVPUSH Q2H PRN PRN Reason: Pain (severe 7-10) Stop: 03/11/21 15:59 Acetaminophen/Hydrocodone 5-325 Mg Tablet Ptom 1 tab PO Q4H PRN PRN Reason: Pain (severe 7-10) Oxycodone/Acetaminophen (Acetaminophen/Oxycodone 325-5 Mg Tab) 1 tab PO Q4H PRN PRN Reason: Pain (moderate 4-6) Last Admin: 03/11/21 05:52 Dose: 1 tab Documented by: Sertraline HCl (Sertraline 50 Mg Tab Ptom) 0 mg PO DAILY [facility] Last Admin: 03/11/21 08:45 Dose: 75 mg Documented by: - Exam General: Reports: Alert HEENT: Reports: Pupils Equal Neck: Reports: Supple Lungs: Reports: Clear to Auscultation, Normal Respiratory Effort Cardiovascular: Reports: Regular Rate, Regular Rhythm GI/Abdominal Exam: Normal Bowel Sounds, Soft, Non-Tender Back Exam: Reports: Normal Inspection Extremities: Normal Inspection, Non-Tender Skin: Reports: Warm, Dry, Intact Neurological: Reports: No New Focal Deficit Psy/Mental Status: Reports: Alert, Normal Affect
[2021-03-12 11:54] VITALS: BP 115/53; PULSE 68
== END 2021-03-12 13:03 | DRG 181 ==
LOC: JD.ED 14:26 → JD.MS 15:57 → OBSVTOIN 03-11 09:27
PROVIDERS: ADMIT Internal Medicine; ATTEND Internal Medicine
DX: C34.92 Malignant neoplasm of unspecified part of left bronchus or lung (principal); C79.51 Secondary malignant neoplasm of bone; C34.91 Malignant neoplasm of unspecified part of right bronchus or lung; R53.1 Weakness; R91.1 Solitary pulmonary nodule; W19.XXXA Unspecified fall, initial encounter; R62.7 Adult failure to thrive; M89.9 Disorder of bone, unspecified; I10 Essential (primary) hypertension; I25.10 Atherosclerotic heart disease of native coronary artery without angina pectoris; Z95.5 Presence of coronary angioplasty implant and graft; J45.909 Unspecified asthma, uncomplicated; K59.09 Other constipation; R32 Unspecified urinary incontinence; M19.90 Unspecified osteoarthritis, unspecified site; M25.551 Pain in right hip; F32.9 Major depressive disorder, single episode, unspecified; F41.9 Anxiety disorder, unspecified; Z98.49 Cataract extraction status, unspecified eye; E11.65 Type 2 diabetes mellitus with hyperglycemia; Z85.3 Personal history of malignant neoplasm of breast; Z68.24 Body mass index [BMI] 24.0-24.9, adult; Z85.89 Personal history of malignant neoplasm of other organs and systems; Z79.82 Long term (current) use of aspirin; Z79.899 Other long term (current) drug therapy; D72.829 Elevated white blood cell count, unspecified; R63.4 Abnormal weight loss; Z20.822 Contact with and (suspected) exposure to COVID-19
CPT/HCPCS: 36415; 80048; 82947 ×2; 85025; 97162; 97530; 99285; A9270 ×10; G0378 ×3; J1815; U0002; 51701; 80053; 81001; 83036; 83735; 97116-GP; 97166-GO; 97535-GO; 99219; 99232; 99239; 99284